=== PATIENT | male | born 1965 | race Caucasian/White ===

== ENCOUNTER → 2016-12-12 | Day surgery (SDC) | payer MEDICARE, OTHER ==
[~2016-12-12] MED LIST: ALBU2.5V13 NEB; ALBU2.5V5 NEB; ASPI-482 PO; ATORVASTATIN CA80 MG PO; CETI10TA30 PO; CHOL100013 PO; DICY10CA3 PO; FLUT12AE2 IH; IV RINGERS,LACTATED 1000ML 1,000 ML IV SCH; LISI1TAB7 PO; MESA1.2T PO; MULT-246 PO; OMEG1CAP30 PO; OMEP40CA5 PO; PROCHLORPERAZINE 10 MG/2 ML VIAL. ONE; PROPOFOL 40 ML IV ONE
[2016-12-12 10:01] VITALS: BP 117/74
--- NOTE | 2016-12-13 13:49 | PATHOLOGY ---
PATHOLOGY REPORT * * * * * * * * FINAL DIAGNOSIS: A. Terminal ileum biopsy: - No significant pathologic abnormalities. B. Cecum biopsy: - Benign colonic mucosa showing no significant pathologic abnormalities-negative for dysplasia. C. Ascending colon biopsy: - Benign colonic mucosa showing no significant pathologic abnormalities-negative for dysplasia. D. Descending colon biopsy: - Benign colonic mucosa showing no significant pathologic abnormalities-negative for dysplasia. E. Sigmoid colon biopsy: - Benign colonic mucosa showing no significant pathologic abnormalities-negative for dysplasia. F. Rectal biopsy: - Benign rectal mucosa showing focal hyperplastic changes consistent with hyperplastic polyp-negative for dysplasia. COMMENT: Sections of the terminal ileum biopsy reveal segments of small intestine mucosa. There are no sprue-like changes or significant inflammatory changes. Sections of the cecal, ascending colon, descending colon, and sigmoid colon biopsies appear similar and reveal segments of benign colonic mucosa showing no significant pathologic abnormalities. There are scattered mucosal-associated lymphoid aggregates. The findings are consistent with ulcerative colitis in remission. There is no evidence of dysplasia or malignancy. Sections of the rectal biopsy reveal a segment of rectal mucosa showing focal hyperplastic changes consistent with hyperplastic polyp. There is no evidence of a chronic destructive colitis. There is no evidence of dysplasia. (JPM:mgelen; d/t: 12/13/16) REPORT ELECTRONICALLY SIGNED BY: Clark Celaya M.D. DATE/TIME: 12/13/2016 13:34 * * * * * * * * GROSS PATHOLOGY: A. Received in formalin labeled "Greg Cardoso, terminal ileum biopsy," are two segments of pedro soft tissue measuring 0.7 x 0.5 x 0.1 cm in aggregate dimensions and ranging from 0.3 to 0.5 cm in maximum dimension. The specimen is submitted entirely in cassette B1. B. Received in formalin labeled "Greg Cardoso, cecum biopsy," are five segments of pedro soft tissue measuring 1.0 x 0.6 x 0.1 cm in aggregate dimensions and ranging from 0.2 to 0.6 cm in maximum dimension. The specimen is submitted entirely in cassette B1. C. Received in formalin labeled "Greg Strakeisha, ascending colon biopsy," are four segments of pedro soft tissue measuring 1.0 x 0.6 x 0.2 cm in aggregate dimensions and ranging from 0.4 to 0.5 cm in maximum dimension. The specimen is submitted entirely in cassette C1. D. Received in formalin labeled "Greg Cardoso, descending colon biopsy," are two segments of pedro soft tissue measuring 0.5 x 0.5 x 0.1 cm in aggregate dimensions and measuring 0.5 cm each cm in maximum dimension. The specimen is submitted entirely in cassette D1. E. Received in formalin labeled "Greg Cardoso, sigmoid colon biopsy," are three segments of pedro soft tissue measuring 0.6 x 0.5 x 0.1 cm in aggregate dimensions and ranging from 0.3 to 0.4 cm in maximum dimension. The specimen is submitted entirely in cassette E1. F. Received in formalin labeled "Greg Cardoso, rectal biopsy," is a segment of pedro soft tissue measuring 0.4 cm in maximum dimension. The specimen is submitted entirely in cassette F1. (CAA; 12/12/2016) INITIAL CPT CODE(S): A; 49958 B; 88346 C; 00136 D; 26842 E; 88613 F; 19751 Professional services [place] [facility] [place] [address] Technical services performed by [facility] at [address] [place] [address]. SPECIMEN(S) RECEIVED: A.Terminal ileum biopsy B.Cecum biopsy C.Ascending colon biopsy D.Descending colon biopsy E.Sigmoid biopsy F.Rectal biopsy CLINICAL HISTORY: Ulcerative colitis PATIENT: GREG CARDOSO /AGE: 5 1965 (Age: 51) PATIENT #: [id number] ALT CASE #: SPECIMEN COLLECTION DATE: 12/12/2016 SPECIMEN RECEIVED DATE: 12/12/2016 [facility] - [address] [place] [address] - PHONE: [phone] * * * END OF REPORT * * *
== END ==
LOC: SURG 07:50
PROVIDERS: ATTEND Internal Medicine Gastroenterology
DX: K51.40 Inflammatory polyps of colon without complications (principal); K64.0 First degree hemorrhoids; K51.00 Ulcerative (chronic) pancolitis without complications; K57.30 Diverticulosis of large intestine without perforation or abscess without bleeding; K29.70 Gastritis, unspecified, without bleeding; I10 Essential (primary) hypertension; K21.9 Gastro-esophageal reflux disease without esophagitis; K76.0 Fatty (change of) liver, not elsewhere classified; J45.909 Unspecified asthma, uncomplicated; E78.00 Pure hypercholesterolemia, unspecified; F41.9 Anxiety disorder, unspecified; M19.90 Unspecified osteoarthritis, unspecified site; I63.9 Cerebral infarction, unspecified; M79.7 Fibromyalgia; M12.9 Arthropathy, unspecified; Z80.3 Family history of malignant neoplasm of breast; Z90.49 Acquired absence of other specified parts of digestive tract; Z72.89 Other problems related to lifestyle; F17.210 Nicotine dependence, cigarettes, uncomplicated; Z79.82 Long term (current) use of aspirin; F15.90 Other stimulant use, unspecified, uncomplicated
CPT/HCPCS: 45380; J0780; J2704; 88305

== ENCOUNTER → 2017-07-29 | Outpatient (CLI) | payer BC ==
[2016-12-12 10:01] VITALS: BP 117/74
[~2017-07-29] MED LIST changes: -ALBU2.5V13 NEB; +ALBU2.5V14 NEB; +IOHEXOL 300 MG/ML 100ML VIAL. IV ONE; -IV RINGERS,LACTATED 1000ML 1,000 ML IV SCH; -PROCHLORPERAZINE 10 MG/2 ML VIAL. ONE; -PROPOFOL 40 ML IV ONE
--- NOTE | 2017-07-29 14:37 | KCIC ---
PQRS Compliance Statement: One or more of the following individualized dose reduction techniques were utilized for this examination: 1. Automated exposure control 2. Adjustment of the mA and/or kV according to patient size 3. Use of iterative reconstruction technique CT CHEST WITH CONTRAST, PULMONARY ANGIOGRAM History: Cough, chest pain. Smoker x20 years, quit 1 year ago. Comparison: None. Technique: Helical CT of the chest was performed after the administration of 95 cc Omnipaque 300 intravenous contrast according to PE protocol. Axial and coronal reconstructions were obtained. 3-D MIP images were constructed to better evaluate the pulmonary arteries. Findings: Pulmonary arteries are adequately opacified. There is no evidence of pulmonary embolism. There is no thoracic aortic dissection. Thyroid is symmetric. Left vertebral artery arises directly from the aortic arch, a normal variant. There are partially calcified mediastinal and bilateral hilar lymph nodes. No adenopathy in the chest. Cardiac size normal, no pericardial effusion. The central airways are patent. There are numerous calcified granulomas in the lungs compatible with prior granulomatous infection. Lungs are otherwise clear. No pleural abnormality. Cholecystectomy. Probable fatty infiltration of the liver. There are a few subcentimeter peripancreatic lymph nodes. No acute bone abnormality. IMPRESSION: 1. There is no CT evidence of pulmonary embolus. 2. Findings of remote granulomatous infection. 3. Fatty infiltration of the liver. Electronically signed by: Johnnie Medrano MD (07/29/2017 2:33 PM) [id number]
== END | disposition home or self-care (01) ==
LOC: KCIC CT 13:10
PROVIDERS: ATTEND Family Medicine
DX: K76.0 Fatty (change of) liver, not elsewhere classified (principal); R07.9 Chest pain, unspecified
CPT/HCPCS: 71275; Q9967

== ENCOUNTER → 2017-11-26 | Outpatient (CLI) | payer BC ==
[2017-11-26] MEDS: OXYMETAZOLINE 0.05% NASAL SPRAY 30ML BOTTLE. NS (22:26)
== END | disposition home or self-care (01) ==
LOC: SLPLAB 18:33
DX: G47.33 Obstructive sleep apnea (adult) (pediatric) (principal)
CPT/HCPCS: 95810

== ENCOUNTER → 2019-01-28 | Day surgery (SDC) | payer BC ==
[~2019-01-28] MED LIST changes: -IOHEXOL 300 MG/ML 100ML VIAL. IV ONE; +IV RINGERS,LACTATED 1000ML 1,000 ML IV SCH; +LIALDA1.2 GM PO; +LIDOCAINE 1% PF 2 ML VIAL. ID PRN; -MESA1.2T PO; +MIDAZOLAM HCL/PF 2 MG/2 ML VIAL. IV PRN; +PROPOFOL 60 ML IV ONE; +SULF500T7 PO; +fentaNYL PF VIAL 100 MCG/2 ML VIAL IV PRN
[2019-01-28 11:13] VITALS: BP 123/67
--- NOTE | 2019-01-29 17:08 | PATHOLOGY ---
[facility] Accession Number: [id number] . 01 Material submitted: . PART A: SMALL BOWEL BIOPSY PART B: GASTRIC ANTRUM BIOPSY PART C: DISTAL ESOPHAGUS BIOPSY PART D: TERMINAL ILEUM BIOPSY PART E: CECUM BIOPSY PART F: ASCENDING COLON POLYP PART G: ASCENDING COLON BIOPSY PART H: TRANSVERSE COLON POLYP PART I: TRANSVERSE COLON BIOPSY PART J: DESCENDING COLON POLYP PART K: DESCENDING COLON BIOPSY PART L: SIGMOID COLON POLYP PART M: SIGMOID COLON BIOPSY PART N: RECTUM BIOPSY . 01 Clinical history: . GERD, colitis . 02 Diagnosis: A. Small bowel biopsy: - No significant pathologic abnormalities. . B. Gastric biopsy, antrum: - Congestion and mild foveolar hyperplasia consistent with reactive gastropathy. . C. Esophageal biopsy, distal esophagus: - Segments of gastric mucosa showing mild chronic inflammation. . D. Terminal ileum biopsy: - No significant pathologic abnormalities. . E. Colon biopsy, cecum: - Consistent with quiescent colitis, negative for dysplasia. . F. Colon biopsy, ascending colon polyp: - Consistent with post inflammatory polyp. . G. Colon biopsy, ascending colon: - Consistent with quiescent colitis, negative for dysplasia. . H. Colon biopsy, transverse colon polyp: - Consistent with post inflammatory polyp with focal mild active colitis. . I. Colon biopsy, transverse colon: - Consistent with quiescent colitis, negative for dysplasia. . J. Colon biopsy, descending colon polyp: - Consistent with post inflammatory polyp. . K. Colon biopsy, descending colon: - Consistent with quiescent colitis, negative for dysplasia. . L. Colon biopsy, sigmoid colon polyp: - Consistent with post inflammatory polyp. . M. Colon biopsy, sigmoid colon: - Consistent with quiescent colitis, negative for dysplasia. . N. Colorectal biopsy, rectum: - Consistent with quiescent colitis, negative for dysplasia, with small incidental hyperplastic polyp. LB/01/29/2019 . 02 Comment: Sections of the small bowel biopsy reveal segments of duodenal and small intestine mucosa. Where best oriented, the mucosal villi show no sprue-like changes or significant inflammatory changes. Sections of the gastric antral biopsy show congestion, mild foveolar hyperplasia, and no significant inflammation. A properly controlled immunoperoxidase stain for Helicobacter is negative for Helicobacter organisms. The findings are consistent with a mild reactive gastropathy. Sections of the distal esophageal biopsy reveal segments of gastric mucosa showing mild chronic inflammation. There is no squamous esophageal mucosa. There is no evidence of Phelan's change, dysplasia, or malignancy. Sections of the terminal ileum biopsy reveal segments of small intestine mucosa containing focal mucosal associated lymphoid tissue. There is no significant inflammation. Sections of the cecal, ascending colon, transverse colon, descending colon, sigmoid colon, and rectal biopsies reveal segments of colonic mucosa consistent with quiescent colitis and showing no evidence of active chronic inflammation or dysplasia. Sections of the ascending colon polyp, transverse colon polyp, descending colon polyp, and sigmoid colon polyp biopsies appear similar and reveal segments of colonic mucosa consistent with post inflammatory polyps. The ascending colon polyp biopsy does show a small focus of mild active inflammation without crypt architectural distortion or crypt abscesses. There is no dysplasia or evidence of malignancy. (JPM/db; 01/29/2019) . Speical stain performed: Immumnoperoxidase stain for Helicobacter on Electronically signed: . Clark Celaya MD, Pathologist NPI- [id number] . 01 Gross description: . A. Received in formalin labeled "Greg Marcus, small bowel BX," are 3 segments of pedro soft tissue measuring 0.9 x 0.7 x 0.2 cm in aggregate dimensions and ranging from 0.4 to 0.5 cm in maximum dimension. The specimen is submitted entirely in cassette A1. . B. Received in formalin labeled "Greg Marcus, gastric antrum BX," is a single segment of pedro soft tissue measuring 0.6 cm in maximum dimension. The specimen is entirely submitted in cassette B1. . C. Received in formalin labeled "Angeline, Greg, distal esophagus BX," are 2 segments of pedro soft tissue measuring 0.7 x 0.2 x 0.2 cm in aggregate dimensions and ranging from 0.3 to 0.4 cm in maximum dimension. The specimen is submitted entirely in cassette C1. . D. Received in formalin labeled "Angeline, Greg, terminal ileum BX," are 2 segments of pedro soft tissue measuring 0.9 x 0.2 x 0.2 cm in aggregate dimensions and ranging from 0.4 to 0.5 cm in maximum dimension. The specimen is submitted entirely in cassette D1. . E. Received in formalin labeled "Angeline, Greg, cecum BX," are 2 segments of pedro soft tissue measuring 1.0 x 0.2 x 0.2 cm in aggregate dimensions and ranging from 0.4 to 0.6 cm in maximum dimension. The specimen is submitted entirely in cassette E1. . F. Received in formalin labeled "Angeline, Greg, ascending colon polyp," are 3 segments of pedro soft tissue measuring 0.9 x 0.6 x 0.1 cm in aggregate dimensions and ranging from 0.3 to 0.5 cm in maximum dimension. The specimen is submitted entirely in cassette F1. . G. Received in formalin labeled "Angeline, Greg, ascending colon BX," are 2 segments of pedro soft tissue measuring 0.7 x 0.2 x 0.2 cm in aggregate dimensions and ranging from 0.3 to 0.5 cm in maximum dimension. The specimen is submitted entirely in cassette G1. . H. Received in formalin labeled "Angeline, Greg, transverse colon polyp," are 3 segments of pedro soft tissue measuring 0.9 x 0.6 x 0.2 cm in aggregate dimensions and ranging from 0.3 to 0.4 cm in maximum dimension. The specimen is submitted entirely in cassette H1. . I. Received in formalin labeled "Angeline, Greg, transverse colon BX," are 2 segments of pedro soft tissue measuring 0.7 x 0.3 x 0.2 cm in aggregate dimensions and ranging from 0.3 to 0.4 cm in maximum dimension. The specimen is submitted entirely in cassette I1. . J. Received in formalin labeled "Angeline, Greg, descending colon polyp," is a single segment of pedro soft tissue measuring 0.6 cm in maximum dimension. The specimen is entirely submitted in cassette J1. . K. Received in formalin labeled "Stramel, Greg, descending colon BX," are 3 segments of pedro soft tissue measuring 1.4 x 0.5 x 0.1 cm in aggregate dimensions and ranging from 0.1 to 0.7 cm in maximum dimension. The specimen is submitted entirely in cassette K1. . L. Received in formalin labeled "Greg Marcus, sigmoid colon polyp," are 2 segments of pedro soft tissue measuring 0.8 x 0.2 x 0.2 cm in aggregate dimensions and ranging from 0.3 to 0.5 cm in maximum dimension. The specimen is submitted entirely in cassette L1. . M. Received in formalin labeled "Greg Marcus, sigmoid colon BX," are 2 segments of pedro soft tissue measuring 0.7 x 0.3 x 0.2 cm in aggregate dimensions and ranging from 0.3 to 0.4 cm in maximum dimension. The specimen is submitted entirely in cassette M1. . N. Received in formalin labeled "Greg Marcus, rectum BX," are 2 segments of pedro soft tissue measuring 1.0 x 0.2 x 0.2 cm in aggregate dimensions and ranging from 0.3 to 0.7 cm in maximum dimension. The specimen is submitted entirely in cassette N1. (TSD; 01/28/2019) TOB/TOB . 02 Pathologist provided ICD-10: K31.9, K20.9, K52.9, K51.40, K62.1 . 02 CPT . 947690, 159284, 919079, 752364, 954448, 942463, 346804, 567722, 334539, 464563, 356653, 726101, 461436, 478403, [id number] Specimen Comment: A courtesy copy of this report has been sent to Specimen Comment: [phone], . Specimen Comment: Report sent to and Performed at: 01 [facility] [address] [facility] [address], [place] [id number] MD Piyush Liu MD Phone: [phone] Performed at: 02 [facility] [address] [place], [place] [id number] MD Clark Celaya MD Phone: [phone]
== END | disposition home or self-care (01) ==
LOC: ENDOS 09:01
PROVIDERS: ATTEND Internal Medicine Gastroenterology
DX: K57.30 Diverticulosis of large intestine without perforation or abscess without bleeding (principal); K64.0 First degree hemorrhoids; K51.00 Ulcerative (chronic) pancolitis without complications; K21.0 Gastro-esophageal reflux disease with esophagitis; K31.89 Other diseases of stomach and duodenum; K62.1 Rectal polyp; K51.40 Inflammatory polyps of colon without complications; Z88.6 Allergy status to analgesic agent; F41.9 Anxiety disorder, unspecified; M19.90 Unspecified osteoarthritis, unspecified site; J45.909 Unspecified asthma, uncomplicated; F32.9 Major depressive disorder, single episode, unspecified; Z86.73 Personal history of transient ischemic attack (TIA), and cerebral infarction without residual deficits; Z86.010 Personal history of colon polyps; M79.7 Fibromyalgia; I10 Essential (primary) hypertension; G47.30 Sleep apnea, unspecified; Z72.89 Other problems related to lifestyle; F17.210 Nicotine dependence, cigarettes, uncomplicated; Z79.82 Long term (current) use of aspirin; Z79.899 Other long term (current) drug therapy; Z90.49 Acquired absence of other specified parts of digestive tract; Z98.52 Vasectomy status
CPT/HCPCS: 43239; 45380; 88305; 88342; J2704

== ENCOUNTER 2021-07-03 08:33 | Inpatient (IN) | payer BC ==
[~2021-07-03] VITALS: Ht 165.1 cm; Wt 113.6 kg
[~2021-07-03 08:33] MED LIST changes: -IV RINGERS,LACTATED 1000ML 1,000 ML IV SCH; -LIDOCAINE 1% PF 2 ML VIAL. ID PRN; +LISI1TAB20 PO; -LISI1TAB7 PO; -MIDAZOLAM HCL/PF 2 MG/2 ML VIAL. IV PRN; -OMEP40CA5 PO; +OMEP40CA7 PO; -PROPOFOL 60 ML IV ONE; -fentaNYL PF VIAL 100 MCG/2 ML VIAL IV PRN
--- NOTE | 2021-07-03 08:56 | PHYS DOC ---
Past Medical History Past Medical History: High Cholesterol, Hypertension Additional Past Medical Histor: Ulcerative colitis General Adult HPI: HPI: Patient is a 56 year old female with PMH of HTN, HLD, ulcerative colitis on sulfasalazine who presents with hypoxia in the setting of Covid. Was diagnosed on 06/26. He is unvaccinated. Over the past 4 days has had increasing shortness of breath. Does describe some burning chest pain. Has been constant for days. Not sharp or pleuritic. He has had fever/chills, cough, nausea, and diarrhea. Went to his PCP this morning was found to be hypoxic to 86-87% on room air. Improving with 2-4 L/min nasal cannula. Review of Systems: Review of Systems: Constitutional: + Fever/chills. [] Eyes: Denies change in visual acuity. [] HENT: Denies nasal congestion or sore throat. [] Respiratory: + Cough and shortness of breath [] Cardiovascular: Denies chest pain or edema. [] GI: + Nausea and diarrhea. Denies abdominal pain, vomiting, or bloody stools. [] : Denies dysuria. [] Musculoskeletal: Denies back pain or joint pain. [] Integument: Denies rash. [] Neurologic: Denies headache, focal weakness or sensory changes. [] Endocrine: Denies polyuria or polydipsia. [] Lymphatic: Denies swollen glands. [] Psychiatric: Denies depression or anxiety. [] Heart Score: C/O Chest Pain: Yes HEART Score for Chest Pain: HEART Score for Chest Pain Response (Comments) Value History Slighlty/Non-Suspicious 0 Age >45 - < 65 1 Risk Factors 1 or 2 Risk Factors 1 Total 2 Risk Factors: Risk Factors: DM, Current or recent (<one month) smoker, HTN, HLP, family history of CAD, obesity. Risk Scores: Score 0 - 3: 2.5% MACE over next 6 weeks - Discharge Home Score 4 - 6: 20.3% MACE over next 6 weeks - Admit for Clinical Observation Score 7 - 10: 72.7% MACE over next 6 weeks - Early Invasive Strategies Allergies: Allergies: Allergies Coded Allergies Type Severity Reaction Last Updated Verified acetaminophen Allergy Intermediate 01/28/19 Yes oxycodone Allergy Intermediate Itching 01/28/19 Yes Physical Exam: PE: Constitutional: Diaphoretic. Ill-appearing. [] HENT: Normocephalic, atraumatic, bilateral external ears normal, oropharynx moist, no oral exudates, nose normal. [] Eyes: conjunctiva normal, no discharge. [] Neck: Normal range of motion, no tenderness, supple, no stridor. [] Cardiovascular: Mild tachycardia. Regular rhythm, no murmur [] Lungs & Thorax: Speaking a few words at a time. Appears slightly dyspneic. Crackles in bilateral lung johnson. [] Abdomen: Bowel sounds normal, soft, no tenderness, no masses, no pulsatile masses. [] Skin: Warm, dry, no erythema, no rash. [] Back: No tenderness, no CVA tenderness. [] Extremities: No tenderness, no cyanosis, no clubbing, ROM intact, no edema. [] Neurologic: Alert and oriented X 3, normal motor function, normal sensory function, no focal deficits noted. [] Psychologic: Affect normal, judgement normal, mood normal. [] EKG: EKG: Sinus rhythm. Rate 86. Left axis deviation. Normal intervals. QTc 422. T wave inversions in lead III. Flat ST segments laterally. No ST elevation or depression. No STEMI [] Radiology/Procedures: Radiology/Procedures: CXR[] Impression: [facility] [address] [place], [place] [id number] IMAGING REPORT Signed PATIENT: ANDI CARDOSO ACCOUNT: [id number] : 1965 LOCATION: ER AGE: 56 SEX: M EXAM STATUS: REG ER ORD. PHYSICIAN: SUMMER JESUS MD REASON: covid +, SOB PROCEDURE: CHEST AP ONLY EXAM: CHEST ONE VIEW. HISTORY: COVID-19, shortness of breath. COMPARISON: None. FINDINGS: A frontal view of the chest is obtained. Patchy bilateral airspace infiltrates are consistent with multifocal pneumonia. There are calcified granulomas on the right. There is no pneumothorax or pleural effusion. The heart is not enlarged. IMPRESSION: 1. Multifocal pneumonia. Electronically signed by: Raissa Mixon MD (07/03/2021 9:02 AM) [id number] DICTATED and SIGNED BY: SUMMER MIXON MD DATE: 07/03/21 [id number] 0 Course & Med Decision Making: Course & Med Decision Making Pertinent Labs and Imaging studies reviewed. (See chart for details) Patient 56-year-old male with history of HTN, HLD, ulcerative colitis on i mmunosuppressive medications who presents with hypoxia in the setting of Covid. Tested positive on 06/26. Was hypoxic to 86-87% on room air. Now stabilized on 2-4 L/min nasal cannula. He does complain of some burning chest discomfort. Will check EKG and troponin. CXR and basic labs pending. Given Covid and hypoxia was given dexamethasone IV. Will clearly require admission. 0856 CXR shows expected multifocal pneumonia c/w COVID. No leukocytosis to suggest bacterial superinfection. will hold on abx. 1017 Dragon Disclaimer: Dragon Disclaimer: This electronic medical record was generated, in whole or in part, using a voice recognition dictation system. Departure Departure Impression: Primary Impression: Respiratory failure with hypoxia Additional Impressions: Pneumonia due to COVID-19 virus Hyponatremia Disposition: ADMITTED INPATIENT Admitting Physician: DENYS (Deep) Condition: STABLE Referrals: CAMRON BELL MD (PCP) SUMMER JESUS MD Jul 03, 2021 08:56
[2021-07-03] MEDS ORDERED: DEXAMETHASONE SOD PHOS 4 MG/ML VIAL IVP ONE (09:00)
--- NOTE | 2021-07-03 09:05 | RAD ---
EXAM: CHEST ONE VIEW. HISTORY: COVID-19, shortness of breath. COMPARISON: None. FINDINGS: A frontal view of the chest is obtained. Patchy bilateral airspace infiltrates are consistent with multifocal pneumonia. There are calcified g ranulomas on the right. There is no pneumothorax or pleural effusion. The heart is not enlarged. IMPRESSION: 1. Multifocal pneumonia. Electronically signed by: Raissa Mixon MD (07/03/2021 9:02 AM) [id number]
[2021-07-03 09:54] LABS: BASO % 1 % (0-3); EOS % 0 % (0-3); HEMATOCRIT 40.1 % (39.0-53.0); LYMPH # 0.7 x10^3/uL (1.0-4.8); LYMPH % 13 % (24-48); MEAN CORPUSCULAR HEMOGLOBIN 33 pg (25-35); MEAN CORPUSCULAR HGB CONC 35 g/dL (31-37); MEAN CORPUSCULAR VOLUME 94 fL (79-100); MONO # 0.3 x10^3/uL (0.0-1.1); MONO % 6 % (0-9); NEUT # 4.6 x10^3/uL (1.8-7.7); NEUT % 81 % (31-73); PLATELET COUNT 100 x10^3/uL (140-400); RED BLOOD COUNT 4.29 x10^6/uL (4.30-5.70); RED CELL DISTRIBUTION WIDTH 13.3 % (11.5-14.5); WHITE BLOOD COUNT 5.7 x10^3/uL (4.0-11.0)
--- NOTE | 2021-07-03 10:01 | EKG ---
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
[2021-07-03 10:05] LABS: CALCIUM 7.9 mg/dL (8.5-10.1); CREATININE 1.6 mg/dL (0.7-1.3); GFR 45.3; POTASSIUM 3.7 mmol/L (3.5-5.1)
[2021-07-03 10:11] LABS: ALBUMIN 3.2 g/dL (3.4-5.0); TOTAL BILIRUBIN 0.7 mg/dL (0.2-1.0); TOTAL PROTEIN 6.3 g/dL (6.4-8.2)
[2021-07-03] MEDS ORDERED: ONDANSETRON PF 4 MG/2 ML VIAL. IVP PRN (13:45)
[2021-07-03] MEDS ORDERED: DEXTROSE 50% 25 GM / 50ML DISP.SYRIN. IV PRN (13:45)
[2021-07-03] MEDS ORDERED: PROCHLORPERAZINE 10 MG/2 ML VIAL. IV PRN (13:45)
[2021-07-03] MEDS ORDERED: SENNOSIDES 8.6 MG TABLET PO PRN (13:45)
[2021-07-03] MEDS ORDERED: DOCUSATE SODIUM 100 MG CAPSULE. PO PRN (13:45)
[2021-07-03] MEDS ORDERED: ACETAMINOPHEN 325 MG TABLET. PO PRN (13:45)
[2021-07-03] MEDS ORDERED: ASCORBIC ACID 1,000 MG TABLET PO SCH (14:00)
[2021-07-03] MEDS: IV NORMAL SALINE 1000ML BAG 1,000 ML IV SCH (14:13)
[2021-07-03] MEDS: ASCORBIC ACID 1,000 MG TABLET PO SCH ×2 (14:14→20:13)
[2021-07-03] MEDS: methylPREDNISolone SOD SUCC PF 40 MG/ML VIAL. IV SCH ×2 (14:17→20:13)
[2021-07-03] MEDS: THIAMINE 100 MG TABLET. PO SCH (14:17)
[2021-07-03] MEDS: ZINC SULFATE 220 MG CAPSULE. PO SCH (14:18)
[2021-07-03 14:20] VITALS: BP 99/55
[2021-07-03] MEDS ORDERED: ZINC SULFATE 220 MG CAPSULE. PO SCH (15:00)
[2021-07-03] MEDS ORDERED: THIAMINE 100 MG TABLET. PO SCH (15:00)
[2021-07-03] MEDS ORDERED: REMDESIVIR LOAD in IV NORMAL SALINE 250ML TV IV ONE (16:00)
--- NOTE | 2021-07-03 16:17 | PDOC1 ---
History and Physical Date of Service: DOS: DATE: 07/03/21 TIME: 16:14 Chief Complaint: Chief Complain: Shortness of breath History of Present Illness: HPI: 56 year old female with PMH of HTN, HLD, ulcerative colitis on sulfasalazine who presents with hypoxia in the setting of Covid. Was diagnosed on 06/26. He is unvaccinated. Over the past 4 days has had increasing shortness of breath. Does describe some burning chest pain. Has been constant for days. Not sharp or pleuritic. He has had fever/chills, cough, nausea, and diarrhea. Went to his PCP this morning was found to be hypoxic to 86-87% on room air. Improving with 2-4 L/min nasal cannula. Past Medical/Surgical History: PMH/PSH: Past Medical History: High Cholesterol, Hypertension, Ulcerative colitis Allergies: Allergies: Coded Allergies: acetaminophen (Verified Allergy, Intermediate, 01/28/19) oxycodone (Verified Allergy, Intermediate, Itching, 01/28/19) Family History: Family History: Reviewed with no relevant findings Social History: Social History: Denies any alcohol, drug or tobacco abuse Current Medications: Current Medications Current Medications Dexamethasone Sodium Phosphate (Decadron) 6 mg 1X ONCE IVP Last administered on 07/03/21at 10:19; Start 07/03/21 at 09:00; Stop 07/03/21 at 09:01; Status DC Ascorbic Acid (Vitamin C) 3,000 mg TID PO Last administered on 07/03/21at 14:14; Start 07/03/21 at 14:00 Methylprednisolone Sodium Succinate (SOLU-Medrol 40MG VIAL) 125 mg Q8HRS IV Last administered on 07/03/21at 14:17; Start 07/03/21 at 14:00 Thiamine Mononitrate (Vitamin B-1) 300 mg DAILY PO ; Start 07/03/21 at 15:00; Stop 07/03/21 at 13:50; Status DC Zinc Sulfate (Orazinc) 220 mg DAILY PO ; Start 07/03/21 at 15:00; Stop 07/03/21 at 13:49; Status DC Sennosides (Senna) 17.2 mg PRN BID PRN PO CONSTIPATION; Start 07/03/21 at 13:45 Docusate Sodium (Colace) 100 mg PRN DAILY PRN PO HARD STOOLS; Start 07/03/21 at 13:45 Ondansetron HCl (Zofran) 4 mg PRN Q6HRS PRN IVP NAUSEA/VOMITING; Start 07/03/21 at 13:45 Dextrose (Dextrose 50%-Water Syringe) 12.5 gm PRN Q15MIN PRN IV SEE COMMENTS; Start 07/03/21 at 13:45 Sodium Chloride 1,000 ml @ 75 mls/hr [id number] IV Last administered on 07/03/21at 14:13; Start 07/03/21 at 13:45 Acetaminophen (Tylenol) 650 mg PRN Q4HRS PRN PO TEMP OVER 100.4F OR MILD PAIN Last administered on 07/03/21at 14:18; Start 07/03/21 at 13:45 Prochlorperazine Edisylate (Compazine) 10 mg PRN Q6HRS PRN IV NAUSEA/VOMITING; Start 07/03/21 at 13:45 Ascorbic Acid (Vitamin C) 3,000 mg TID PO ; Start 07/03/21 at 14:00; Stop 07/03/21 at 13:49; Status DC Thiamine Mononitrate (Vitamin B-1) 300 mg DAILY PO Last administered on 07/03/21at 14:17; Start 07/03/21 at 15:00 Zinc Sulfate (Orazinc) 220 mg DAILY PO Last administered on 07/03/21at 14:18; Start 07/03/21 at 15:00 Remdesivir 200 mg/ Sodium Chloride 210 ml @ 210 mls/hr 1X ONCE IV ; Start 06/24 at 16:00; Stop 07/03/21 at 16:59 Remdesivir 100 mg/ Sodium Chloride 230 ml @ 460 mls/hr Q24H IV ; Start 07/04/21 at 16:00; Stop 07/07/21 at 16:29 Active Scripts Active Reported Sulfasalazine 500 Mg Tablet 500 Mg PO EVERY 6 HRS Lisinopril-Hctz 20-25 Mg Tab (Lisinopril/Hydrochlorothiazide) 1 Each Tablet 1 Tab PO DAILY Flovent 220MCG Hfa (Fluticasone Propionate) 12 Gm Aer.w.adap 12 Gm IH BID Albuterol Sulfate Neb Soln (Albuterol Sulfate) 2.5 Mg/3 Ml Vial.neb 1 Vial NEB P RN Q4HRS Albuterol Sulfate Conc Neb Soln (Albuterol Sulfate) 2.5 Mg/0.5 Ml Vial.neb 1 Vial NEB Q6HRS Multi-Vitamin Daily (Multivitamin) 1 Each Tablet 1 Each PO DAILY Fish Oil 1,000 Mg Softgel ([place]-3/Dha/Epa/Fish Oil) 1 Each Capsule 1 Each PO DAILY Cetirizine Hcl 10 Mg Tab.chew 10 Mg PO DAILY Atorvastatin Calcium 80 Mg Tablet 80 Mg PO HS Omeprazole 40 Mg Capsule.dr 40 Mg PO DAILY Dicyclomine Hcl 10 Mg Capsule 10 Mg PO TID Aspir 81 (Aspirin) 81 Mg Tablet.dr 81 Mg PO DAILY Vitamin D (Cholecalciferol (Vitamin D3)) 1,000 Unit Capsule 1,000 Unit PO DAILY ROS: Review of Systems Review of System REVIEW OF SYSTEMS: GENERAL: Denies weakness SKIN: No bruising, hair changes or rashes. EYES: No blurred, double or loss of vision. NOSE AND THROAT: No history of nosebleeds, hoarseness or sore throat. HEART: No history of palpitations, chest pain or shortness of breath on exertion. LUNGS: Denies cough, hemoptysis, wheezing or shortness of breath. Positive for dyspnea GASTROINTESTINAL: Denies changes in appetite, nausea, vomiting, diarrhea or constipation. GENITOURINARY: No history of frequency, urgency, hesitancy or nocturia. NEUROLOGIC: Denies history of numbness, tingling, or tremor. PSYCHIATRIC: No history of panic, anxiety or depression. ENDOCRINE: No history of heat or cold intolerance, polyuria or polydipsia. EXTREMITIES: Denies joint pain, pain on walking or stiffness. Physical Exam: Vital Signs: Vital Signs Date Time Temp Pulse Resp B/P (MAP) Pulse Ox O2 Delivery O2 Flow Rate FiO2 07/03/21 14:20 101.1 82 18 99/55 (70) 91 Nasal Cannula 2.0 101.1 Physcial Exam: General: Well developed, well nourished, no acute distress, well appearing HEENT: Pupils equally round and reactive to light, EOMI, no discharge, normal conjunctiva Neck: Supple, no nuchal rigidity, no JVD, trachea midline, no tenderness Cardiac: RRR, no murmurs, no gallops, no rubs Chest/Lungs: Diminished to auscultation bilaterally, no wheeze, no rhonchi, no crackles Abdomen: Obese, soft, non-distended, no guarding, no peritoneal signs, non- tender Back: No tenderness Extremities: no edema, pulses intact, non-tender,capillary refill <3 sec bilateral upper and lower extremities, Neuro: Alert and oriented x 4, no focal deficits, normal speech Labs: Labs: Laboratory Tests Test 07/03/21 09:47 07/03/21 14:45 White Blood Count 5.7 x10^3/uL (4.0-11.0) Red Blood Count 4.29 x10^6/uL (4.30-5.70) Hemoglobin 14.0 g/dL (13.0-17.5) Hematocrit 40.1 % (39.0-53.0) Mean Corpuscular Volume 94 fL (79-100) Mean Corpuscular Hemoglobin 33 pg (25-35) Mean Corpuscular Hemoglobin Concent 35 g/dL (31-37) Red Cell Distribution Width 13.3 % (11.5-14.5) Platelet Count 100 x10^3/uL (140-400) Neutrophils (%) (Auto) 81 % (31-73) Lymphocytes (%) (Auto) 13 % (24-48) Monocytes (%) (Auto) 6 % (0-9) Eosinophils (%) (Auto) 0 % (0-3) Basophils (%) (Auto) 1 % (0-3) Neutrophils # (Auto) 4.6 x10^3/uL (1.8-7.7) Lymphocytes # (Auto) 0.7 x10^3/uL (1.0-4.8) Monocytes # (Auto) 0.3 x10^3/uL (0.0-1.1) Eosinophils # (Auto) 0.0 x10^3/uL (0.0-0.7) Basophils # (Auto) 0.0 x10^3/uL (0.0-0.2) Sodium Level 127 mmol/L (136-145) Potassium Level 3.7 mmol/L (3.5-5.1) Chloride Level 90 mmol/L (98-107) Carbon Dioxide Level 33 mmol/L (21-32) Anion Gap 4 (6-14) Blood Urea Nitrogen 26 mg/dL (8-26) Creatinine 1.6 mg/dL (0.7-1.3) Estimated GFR (Cockcroft-Gault) 45.3 BUN/Creatinine Ratio 16 (6-20) Glucose Level 124 mg/dL (70-99) Calcium Level 7.9 mg/dL (8.5-10.1) Total Bilirubin 0.7 mg/dL (0.2-1.0) Aspartate Amino Transf (AST/SGOT) 76 U/L (15-37) Alanine Aminotransferase (ALT/SGPT) 44 U/L (16-63) Alkaline Phosphatase 48 U/L (46-116) Troponin I Quantitative < 0.017 ng/mL (0.000-0.055) C-Reactive Protein, Quantitative 146.2 mg/L (0-3.3) Total Protein 6.3 g/dL (6.4-8.2) Albumin 3.2 g/dL (3.4-5.0) Albumin/Globulin Ratio 1.0 (1.0-1.7) D-Dimer (Tisha) 1.43 ug/mlFEU (0.00-0.50) Laboratory Tests Test 07/03/21 09:47 07/03/21 14:45 White Blood Count 5.7 x10^3/uL (4.0-11.0) Red Blood Count 4.29 x10^6/uL (4.30-5.70) Hemoglobin 14.0 g/dL (13.0-17.5) Hematocrit 40.1 % (39.0-53.0) Mean Corpuscular Volume 94 fL (79-100) Mean Corpuscular Hemoglobin 33 pg (25-35) Mean Corpuscular Hemoglobin Concent 35 g/dL (31-37) Red Cell Distribution Width 13.3 % (11.5-14.5) Platelet Count 100 x10^3/uL (140-400) Neutrophils (%) (Auto) 81 % (31-73) Lymphocytes (%) (Auto) 13 % (24-48) Monocytes (%) (Auto) 6 % (0-9) Eosinophils (%) (Auto) 0 % (0-3) Basophils (%) (Auto) 1 % (0-3) Neutrophils # (Auto) 4.6 x10^3/uL (1.8-7.7) Lymphocytes # (Auto) 0.7 x10^3/uL (1.0-4.8) Monocytes # (Auto) 0.3 x10^3/uL (0.0-1.1) Eosinophils # (Auto) 0.0 x10^3/uL (0.0-0.7) Basophils # (Auto) 0.0 x10^3/uL (0.0-0.2) Sodium Level 127 mmol/L (136-145) Potassium Level 3.7 mmol/L (3.5-5.1) Chloride Level 90 mmol/L (98-107) Carbon Dioxide Level 33 mmol/L (21-32) Anion Gap 4 (6-14) Blood Urea Nitrogen 26 mg/dL (8-26) Creatinine 1.6 mg/dL (0.7-1.3) Estimated GFR (Cockcroft-Gault) 45.3 BUN/Creatinine Ratio 16 (6-20) Glucose Level 124 mg/dL (70-99) Calcium Level 7.9 mg/dL (8.5-10.1) Total Bilirubin 0.7 mg/dL (0.2-1.0) Aspartate Amino Transf (AST/SGOT) 76 U/L (15-37) Alanine Aminotransferase (ALT/SGPT) 44 U/L (16-63) Alkaline Phosphatase 48 U/L (46-116) Troponin I Quantitative < 0.017 ng/mL (0.000-0.055) C-Reactive Protein, Quantitative 146.2 mg/L (0-3.3) Total Protein 6.3 g/dL (6.4-8.2) Albumin 3.2 g/dL (3.4-5.0) Albumin/Globulin Ratio 1.0 (1.0-1.7) D-Dimer (Tisha) 1.43 ug/mlFEU (0.00-0.50) Images: Images PROCEDURE: CHEST AP ONLY EXAM: CHEST ONE VIEW. HISTORY: COVID-19, shortness of breath. COMPARISON: None. FINDINGS: A frontal view of the chest is obtained. Patchy bilateral airspace infiltrates are consistent with multifocal pneumonia. There are calcified granulomas on the right. There is no pneumothorax or pleural effusion. The heart is not enlarged. IMPRESSION: 1. Multifocal pneumonia. Assessment/Plan Assessment/Plan Acute hypoxic respiratory failure COVID-19 pneumonia Elevated D-dimer Acute electrolyte derangement with hyponatremia, hypochloremia suggestive of acute volume depletion PRASANNA due to vasomotor nephropathy Moderate protein malnutrition History of ulcerative colitis Morbid obesity Admit to medicine for further management Pulmonology consult Continue IV thiamine and vitamin C IV 4 mg dexamethasone Daily Pending ferritin, LDH, CRP, D-dimer labs Titrate O2 supplementation to maintain O2 saturation greater than 92% Resume home ulcerative colitis medications Lovenox, consult pharmacy for dosing for DVT prophylaxis Protonix GI prophylaxis ADA diet Full code Discussed with RN and SW Disposition patient management as above Surrogate decision maker is the Justifications for Admission Other Justification COVID-19 positive test (U07.1, COVID-19) with Acute Pneumonia (J12.89, Other viral pneumonia) (If respiratory failure or sepsis present, add as separate assessment) JOHN TREJO MD Jul 03, 2021 16:17
[2021-07-03] MEDS ORDERED: IV NORMAL SALINE 1000ML BAG 1,000 ML IV ONE (16:30)
[2021-07-03] MEDS: ENOXAPARIN 40 MG/0.4 ML SYRINGE. SQ SCH (17:44)
[2021-07-03 19:00] VITALS: BP 133/65
[2021-07-03] MEDS ORDERED: FOLI0.8C PO (19:16)
[2021-07-03] MEDS ORDERED: OMEP40CA7 PO (19:16)
--- NOTE | 2021-07-03 19:50 | CONS ---
DATE OF CONSULTATION: 07/03/2021 PULMONARY CONSULTATION ATTENDING PHYSICIAN: Dr. Adame. REASON FOR CONSULTATION: Respiratory failure, COVID-19 viral pneumonia. HISTORY OF PRESENT ILLNESS: The patient is a 56-year-old male with 25 years of tobacco use and obesity with a BMI of 41. The patient also has a history of ulcerative colitis, on sulfasalazine. He presented to the hospital after he was diagnosed with COVID-19 on 06/26. He is unvaccinated. He is noticed to have increased shortness of breath and there was noted to be hypoxic with saturation of 86% on room air at his primary care's office. He was sent to Urgent Care and transferred here. He has some subjective fever, chills, cough. Denies any leg edema. The patient has been a smoker for 25 years, less than 1 pack per day. He is currently requiring oxygen at 2 liters. His chest x-ray revealed bilateral interstitial infiltrates. I have done this consultation via telemedicine. PAST MEDICAL HISTORY: Significant for tobaccoism, likely COPD, history of dyslipidemia, hypertension, ulcerative colitis and obesity. PAST SURGICAL HISTORY: No recent surgeries. ALLERGIES: ACETAMINOPHEN, OXYCODONE. REVIEW OF SYSTEMS: A 10-point system obtained. Pertinent positives discussed in my present illness, otherwise noncontributory. All systems that were negative were reviewed as well. FAMILY HISTORY: Noncontributory to lungs. MEDICATIONS: All reviewed including remdesivir, Lovenox for DVT prophylaxis and IV Solu-Medrol. SOCIAL HISTORY: Smoker for 25 years, less than 1 pack per day. PHYSICAL EXAMINATION: VITAL SIGNS: Reviewed. T-max of 101. Pulse ox 91% on 2 liters. Blood pressure 99 systolic. GENERAL: Visual exam done due to COVID-19. No paradoxical breathing. He is obese. EXTREMITIES: No leg edema or rash. LABORATORY DATA: Reviewed. White cell count 5.7, hemoglobin 14.0, platelets of 100. BUN 26, creatinine 1.6. Albumin 3.2. IMPRESSION: 1. Acute hypoxic respiratory failure in a patient who is morbidly obese, has COVID-19 viral pneumonia and has underlying tobaccoism. He is at high risk for worsening hypoxia and clinical deterioration. He also has been on sulfasalazine for ulcerative colitis. Currently, oxygen requirement is stable at 2 liters. 2. Abnormal chest x-ray with bilateral patchy interstitial infiltrates, consistent with COVID-19 viral pneumonia. 3. Underlying tobaccoism with suspected chronic obstructive pulmonary disease. 4. Underlying morbid obesity. RECOMMENDATIONS: 1. At present clinical status is stable at 2 liters. 2. The patient was initiated on remdesivir and IV Solu-Medrol. We will continue to monitor respiratory status. 3. DVT prophylaxis with Lovenox. 4. No clinical suspicion for bacterial pneumonia. 5. Discussed with RN, discussed with the patient. We will follow his clinical course. We will be available for any further recommendations. Please call us if his oxygen requirement changes. We will be seeing him otherwise, on a p.r.n. basis. VU DR: Vel TID: [id number]
[2021-07-03 23:33] VITALS: BP 114/72
[2021-07-04] MEDS: IV NORMAL SALINE 1000ML BAG 1,000 ML IV SCH ×2 (00:50→17:49)
[2021-07-04 03:00] VITALS: BP 104/71
[2021-07-04] MEDS: methylPREDNISolone SOD SUCC PF 40 MG/ML VIAL. IV SCH (06:02)
[2021-07-04 07:00] VITALS: BP 129/79
[2021-07-04 07:13] LABS: BASO % 0 % (0-3); EOS % 0 % (0-3); HEMATOCRIT 40.6 % (39.0-53.0); LYMPH # 0.7 x10^3/uL (1.0-4.8); LYMPH % 15 % (24-48); MEAN CORPUSCULAR HEMOGLOBIN 33 pg (25-35); MEAN CORPUSCULAR HGB CONC 34 g/dL (31-37); MEAN CORPUSCULAR VOLUME 95 fL (79-100); MONO # 0.3 x10^3/uL (0.0-1.1); MONO % 6 % (0-9); NEUT # 3.6 x10^3/uL (1.8-7.7); NEUT % 79 % (31-73); PLATELET COUNT 111 x10^3/uL (140-400); RED BLOOD COUNT 4.28 x10^6/uL (4.30-5.70); RED CELL DISTRIBUTION WIDTH 13.4 % (11.5-14.5); WHITE BLOOD COUNT 4.6 x10^3/uL (4.0-11.0)
[2021-07-04 07:26] LABS: CALCIUM 8.6 mg/dL (8.5-10.1); CREATININE 1.2 mg/dL (0.7-1.3); GFR 63.1; MAGNESIUM 2.5 mg/dL (1.8-2.4); POTASSIUM 4.2 mmol/L (3.5-5.1)
[2021-07-04] MEDS: THIAMINE 100 MG TABLET. PO SCH (10:08)
[2021-07-04] MEDS: ZINC SULFATE 220 MG CAPSULE. PO SCH (10:08)
[2021-07-04] MEDS: ASPIRIN ENTERIC COATED 81 MG TABLET.DR. PO SCH (10:08)
[2021-07-04] MEDS: FOLIC ACID 1 MG TABLET. PO SCH (10:09)
[2021-07-04] MEDS: ASCORBIC ACID 1,000 MG TABLET PO SCH ×3 (10:09→21:22)
[2021-07-04] MEDS: ENOXAPARIN 40 MG/0.4 ML SYRINGE. SQ SCH ×2 (10:10→21:23)
[2021-07-04] MEDS: DICYCLOMINE HCL 10 MG CAPSULE PO SCH ×3 (10:10→21:22)
[2021-07-04] MEDS: NICOTINE 21MG PATCH. TD PRN (10:14)
[2021-07-04 11:00] VITALS: BP 117/61
--- NOTE | 2021-07-04 11:03 | NUR ---
SW following. Discussed with RN, pt from home with family, 2.5L (does not use oxygen at home), cardiac diet. COVID-19 positive. Pulmonology following. RN advised no SW needs at this time. SW will continue to follow.
[2021-07-04] MEDS: methylPREDNISolone SOD SUCC PF 125 MG/2 ML VIAL. IV SCH ×2 (14:44→21:22)
--- NOTE | 2021-07-04 14:44 | PDOC ---
[employer] PROGRESS NOTE Date of Service DOS: DATE: 07/04/21 TIME: 14:41 Chief Complaint Chief Complaint Acute hypoxic respiratory failure COVID-19 pneumonia Elevated D-dimer Acute electrolyte derangement with hyponatremia, hypochloremia suggestive of acute volume depletion PRASANNA due to vasomotor nephropathy Moderate protein malnutrition History of ulcerative colitis Morbid obesity Admit to medicine for further management Pulmonology consult Continue IV thiamine and vitamin C IV 4 mg dexamethasone Daily Pending ferritin, LDH, CRP, D-dimer labs Titrate O2 supplementation to maintain O2 saturation greater than 92% Resume home ulcerative colitis medications Lovenox, consult pharmacy for dosing for DVT prophylaxis Protonix GI prophylaxis ADA diet Full code Discussed with RN and SW Disposition patient management as above Surrogate decision maker is the History of Present Illness History of Present Illness 56 year old female with PMH of HTN, HLD, ulcerative colitis on sulfasalazine who presents with hypoxia in the setting of Covid. Was diagnosed on 06/26. He is unvaccinated. Over the past 4 days has had increasing shortness of breath. Does describe some burning chest pain. Has been constant for days. Not sharp or pleuritic. He has had fever/chills, cough, nausea, and diarrhea. Went to his PCP this morning was found to be hypoxic to 86-87% on room air. Improving with 2-4 L/min nasal cannula. 07/04/2021 No acute events overnight. Patient saturating 92% on 2 L nasal cannula. Will decrease his IV fluids to NS at 75 cc/h. Sodium improving and creatinine decreased from 1.6-1.2. Patient is still has prerenal azotemia. No concerns from nursing at this time. Patient's chart, labs, images were reviewed and discussed with RN Vitals/I&O Vitals/I&O: Vital Signs Date Time Temp Pulse Resp B/P (MAP) Pulse Ox O2 Delivery O2 Flow Rate FiO2 07/04/21 11:00 98.0 63 20 117/61 (79) 92 Nasal Cannula 2.5 98.0 I & O 07/03/21 07/03/21 07/04/21 15:00 23:00 07:00 Intake Total 200 ml 0 ml Balance 200 ml 0 ml Physical Exam General: Alert, Oriented X3, Cooperative Heart: Regular rate Lungs: Clear Abdomen: Normal bowel sounds Extremities: No clubbing Skin: No rashes, No significant lesion Labs Labs: Laboratory Tests Test 07/03/21 14:45 07/04/21 06:15 D-Dimer (Tisha) 1.43 ug/mlFEU (0.00-0.50) White Blood Count 4.6 x10^3/uL (4.0-11.0) Red Blood Count 4.28 x10^6/uL (4.30-5.70) Hemoglobin 14.0 g/dL (13.0-17.5) Hematocrit 40.6 % (39.0-53.0) Mean Corpuscular Volume 95 fL (79-100) Mean Corpuscular Hemoglobin 33 pg (25-35) Mean Corpuscular Hemoglobin Concent 34 g/dL (31-37) Red Cell Distribution Width 13.4 % (11.5-14.5) Platelet Count 111 x10^3/uL (140-400) Neutrophils (%) (Auto) 79 % (31-73) Lymphocytes (%) (Auto) 15 % (24-48) Monocytes (%) (Auto) 6 % (0-9) Eosinophils (%) (Auto) 0 % (0-3) Basophils (%) (Auto) 0 % (0-3) Neutrophils # (Auto) 3.6 x10^3/uL (1.8-7.7) Lymphocytes # (Auto) 0.7 x10^3/uL (1.0-4.8) Monocytes # (Auto) 0.3 x10^3/uL (0.0-1.1) Eosinophils # (Auto) 0.0 x10^3/uL (0.0-0.7) Basophils # (Auto) 0.0 x10^3/uL (0.0-0.2) Sodium Level 130 mmol/L (136-145) Potassium Level 4.2 mmol/L (3.5-5.1) Chloride Level 94 mmol/L (98-107) Carbon Dioxide Level 30 mmol/L (21-32) Anion Gap 6 (6-14) Blood Urea Nitrogen 29 mg/dL (8-26) Creatinine 1.2 mg/dL (0.7-1.3) Estimated GFR (Cockcroft-Gault) 63.1 Glucose Level 200 mg/dL (70-99) Calcium Level 8.6 mg/dL (8.5-10.1) Phosphorus Level 3.0 mg/dL (2.6-4.7) Magnesium Level 2.5 mg/dL (1.8-2.4) Assessment and Plan Assessmemt and Plan Problems Medical Problems: (1) Hyponatremia Status: Acute (2) Pneumonia due to COVID-19 virus Status: Acute (3) Respiratory failure with hypoxia Status: Acute Comment Review of Relevant I have reviewed the following items nadir (where applicable) has been applied. Medications: Current Medications Medications (Trade) Dose Ordered Sig/Zach Route PRN Reason Start Time Stop Time Status Last Admin Dose Admin Thiamine Mononitrate (Vitamin B-1) 300 mg DAILY PO 07/03/21 15:00 07/04/21 10:08 Zinc Sulfate (Orazinc) 220 mg DAILY PO 07/03/21 15:00 07/04/21 10:08 Remdesivir 200 mg/ Sodium Chloride 210 ml @ 210 mls/hr 1X ONCE IV 07/03/21 16:00 07/03/21 16:59 DC 07/03/21 16:26 Enoxaparin Sodium (Lovenox 40mg Syringe) 40 mg BID SQ 07/03/21 17:00 07/04/21 10:10 Aspirin (Ecotrin) 81 mg DAILY PO 07/04/21 09:00 07/04/21 10:08 Dicyclomine HCl (Bentyl) 10 mg TID PO 07/04/21 09:00 07/04/21 10:10 Folic Acid (Folic Acid) 1 mg DAILY PO 07/04/21 09:00 07/04/21 10:09 Nicotine (Nicoderm Cq 21mg) 1 patch PRN DAILY PRN TD SMOKING CESSATION 07/04/21 10:15 07/04/21 10:14 Justifications for Admission Other Justification COVID-19 positive test (U07.1, COVID-19) with Acute Pneumonia (J12.89, Other viral pneumonia) (If respiratory failure or sepsis present, add as separate assessment) JOHN TREJO MD Jul 04, 2021 14:44
[2021-07-04 15:00] VITALS: BP 145/78
[2021-07-04] MEDS: REMDESIVIR 100mg in NORMAL SALINE 250ML X 4 DAYS IV SCH (17:47)
[2021-07-04] MEDS: ATORVASTATIN CALCIUM 40 MG TABLET. PO SCH (21:22)
[2021-07-04 23:00] VITALS: BP 125/77
--- NOTE | 2021-07-04 23:30 | NUR ---
Pt moved to room 508 to allow for continuous O2 monitoring via [place]. Pt currently on 6L/NC, humidification applied d/t pt reporting nostrils burning. Will monitor.
[2021-07-05 03:00] VITALS: BP 123/75
[2021-07-05] MEDS: methylPREDNISolone SOD SUCC PF 125 MG/2 ML VIAL. IV SCH ×3 (06:19→21:03)
[2021-07-05] MEDS: IV NORMAL SALINE 1000ML BAG 1,000 ML IV SCH (06:20)
[2021-07-05 07:00] VITALS: BP 136/73
[2021-07-05] MEDS: ASCORBIC ACID 1,000 MG TABLET PO SCH ×3 (08:31→21:02)
[2021-07-05] MEDS: ASPIRIN ENTERIC COATED 81 MG TABLET.DR. PO SCH (08:31)
[2021-07-05] MEDS: ZINC SULFATE 220 MG CAPSULE. PO SCH (08:32)
[2021-07-05] MEDS: FOLIC ACID 1 MG TABLET. PO SCH (08:32)
[2021-07-05] MEDS: DICYCLOMINE HCL 10 MG CAPSULE PO SCH ×3 (08:32→21:02)
[2021-07-05] MEDS: THIAMINE 100 MG TABLET. PO SCH (08:33)
[2021-07-05] MEDS: ENOXAPARIN 40 MG/0.4 ML SYRINGE. SQ SCH ×2 (08:34→21:03)
[2021-07-05 08:41] LABS: BASO % 0 % (0-3); EOS % 0 % (0-3); HEMATOCRIT 37.9 % (39.0-53.0); HEMOGLOBIN 13.1 g/dL (13.0-17.5); LYMPH # 0.7 x10^3/uL (1.0-4.8); LYMPH % 6 % (24-48); MEAN CORPUSCULAR HEMOGLOBIN 33 pg (25-35); MEAN CORPUSCULAR HGB CONC 35 g/dL (31-37); MEAN CORPUSCULAR VOLUME 95 fL (79-100); MONO # 0.7 x10^3/uL (0.0-1.1); MONO % 6 % (0-9); NEUT # 9.7 x10^3/uL (1.8-7.7); NEUT % 88 % (31-73); PLATELET COUNT 150 x10^3/uL (140-400); RED CELL DISTRIBUTION WIDTH 13.2 % (11.5-14.5); WHITE BLOOD COUNT 11.1 x10^3/uL (4.0-11.0)
[2021-07-05 09:06] LABS: CALCIUM 8.2 mg/dL (8.5-10.1); CREATININE 0.9 mg/dL (0.7-1.3); GFR 87.9; MAGNESIUM 2.1 mg/dL (1.8-2.4); POTASSIUM 4.3 mmol/L (3.5-5.1)
[2021-07-05 11:00] VITALS: BP 133/77
[2021-07-05 11:51] LABS: % BANDS 2 % (0-9); % LYMPHS 7 % (24-48); % MONOS 4 % (0-10); % SEGS 87 % (35-66)
[2021-07-05 11:52] LABS: ANISOCYTOSIS PRESENT; PLT ESTIMATE ADEQUATE (ADEQUATE)
[2021-07-05 15:00] VITALS: BP 131/19
--- NOTE | 2021-07-05 15:18 | PDOC ---
[employer] PROGRESS NOTE Date of Service DOS: DATE: 07/05/21 TIME: 15:17 Chief Complaint Chief Complaint Acute hypoxic respiratory failure COVID-19 pneumonia Elevated D-dimer Acute electrolyte derangement with hyponatremia, hypochloremia suggestive of acute volume depletion PRASANNA due to vasomotor nephropathy Moderate protein malnutrition History of ulcerative colitis Morbid obesity Admit to medicine for further management Pulmonology consult Continue IV thiamine and vitamin C IV 4 mg dexamethasone Daily Pending ferritin, LDH, CRP, D-dimer labs Titrate O2 supplementation to maintain O2 saturation greater than 92% Resume home ulcerative colitis medications Lovenox, consult pharmacy for dosing for DVT prophylaxis Protonix GI prophylaxis ADA diet Full code Discussed with RN and SW Disposition patient management as above Surrogate decision maker is the History of Present Illness History of Present Illness 56 year old female with PMH of HTN, HLD, ulcerative colitis on sulfasalazine who presents with hypoxia in the setting of Covid. Was diagnosed on 06/26. He is unvaccinated. Over the past 4 days has had increasing shortness of breath. Does describe some burning chest pain. Has been constant for days. Not sharp or pleuritic. He has had fever/chills, cough, nausea, and diarrhea. Went to his PCP this morning was found to be hypoxic to 86-87% on room air. Improving with 2-4 L/min nasal cannula. 07/04/2021 No acute events overnight. Patient saturating 92% on 2 L nasal cannula. Will decrease his IV fluids to NS at 75 cc/h. Sodium improving and creatinine decreased from 1.6-1.2. Patient is still has prerenal azotemia. No concerns from nursing at this time. Patient's chart, labs, images were reviewed and discussed with RN 07/05/2021 No acute events overnight. Patient saturating 92% on 6 L nasal cannula. Will DC IV fluids. Continue with IV Remdesivir and IV steroids. Patient's chart, labs, images were reviewed and discussed with RN Vitals/I&O Vitals/I&O: Vital Signs Date Time Temp Pulse Resp B/P (MAP) Pulse Ox O2 Delivery O2 Flow Rate FiO2 07/05/21 11:00 97.8 75 18 133/77 (95) 93 Nasal Cannula 8.0 97.8 I & O 8/11/21 8/11/21 8/12/21 15:00 23:00 07:00 Intake Total 2868 ml 1000 ml Output Total 200 ml 800 ml Balance 2668 ml 200 ml Physical Exam General: Alert, Oriented X3, Cooperative Heart: Regular rate Lungs: Clear Abdomen: Normal bowel sounds Extremities: No clubbing Skin: No rashes, No significant lesion Labs Labs: Laboratory Tests Test 07/04/21 21:37 07/05/21 06:05 Glucose (Fingerstick) 335 mg/dL (70-99) White Blood Count 11.1 x10^3/uL (4.0-11.0) Red Blood Count 4.00 x10^6/uL (4.30-5.70) Hemoglobin 13.1 g/dL (13.0-17.5) Hematocrit 37.9 % (39.0-53.0) Mean Corpuscular Volume 95 fL (79-100) Mean Corpuscular Hemoglobin 33 pg (25-35) Mean Corpuscular Hemoglobin Concent 35 g/dL (31-37) Red Cell Distribution Width 13.2 % (11.5-14.5) Platelet Count 150 x10^3/uL (140-400) Neutrophils (%) (Auto) 88 % (31-73) Lymphocytes (%) (Auto) 6 % (24-48) Monocytes (%) (Auto) 6 % (0-9) Eosinophils (%) (Auto) 0 % (0-3) Basophils (%) (Auto) 0 % (0-3) Neutrophils # (Auto) 9.7 x10^3/uL (1.8-7.7) Lymphocytes # (Auto) 0.7 x10^3/uL (1.0-4.8) Monocytes # (Auto) 0.7 x10^3/uL (0.0-1.1) Eosinophils # (Auto) 0.0 x10^3/uL (0.0-0.7) Basophils # (Auto) 0.0 x10^3/uL (0.0-0.2) Segmented Neutrophils % 87 % (35-66) Band Neutrophils % 2 % (0-9) Lymphocytes % 7 % (24-48) Monocytes % 4 % (0-10) Platelet Estimate Adequate (ADEQUATE) Anisocytosis Present Sodium Level 136 mmol/L (136-145) Potassium Level 4.3 mmol/L (3.5-5.1) Chloride Level 100 mmol/L (98-107) Carbon Dioxide Level 28 mmol/L (21-32) Anion Gap 8 (6-14) Blood Urea Nitrogen 21 mg/dL (8-26) Creatinine 0.9 mg/dL (0.7-1.3) Estimated GFR (Cockcroft-Gault) 87.9 Glucose Level 198 mg/dL (70-99) Calcium Level 8.2 mg/dL (8.5-10.1) Magnesium Level 2.1 mg/dL (1.8-2.4) Assessment and Plan Assessmemt and Plan Problems Medical Problems: (1) Hyponatremia Status: Acute (2) Pneumonia due to COVID-19 virus Status: Acute (3) Respiratory failure with hypoxia Status: Acute Comment Review of Relevant I have reviewed the following items nadir (where applicable) has been applied. Medications: Current Medications Medications (Trade) Dose Ordered Sig/Zach Route PRN Reason Start Time Stop Time Status Last Admin Dose Admin Remdesivir 100 mg/ Sodium Chloride 230 ml @ 460 mls/hr Q24H IV 07/04/21 16:00 07/07/21 16:29 07/04/21 17:47 Atorvastatin Calcium (Lipitor) 80 mg QHS PO 07/04/21 21:00 07/04/21 21:22 Justifications for Admission Other Justification COVID-19 positive test (U07.1, COVID-19) with Acute Pneumonia (J12.89, Other viral pneumonia) (If respiratory failure or sepsis present, add as separate assessment) JOHN TREJO MD Jul 05, 2021 15:18
[2021-07-05] MEDS: REMDESIVIR 100mg in NORMAL SALINE 250ML X 4 DAYS IV SCH (15:41)
[2021-07-05 19:00] VITALS: BP 138/85
[2021-07-05] MEDS: ATORVASTATIN CALCIUM 40 MG TABLET. PO SCH (21:02)
[2021-07-05 23:00] VITALS: BP 117/59
[2021-07-06 03:00] VITALS: BP 127/55
[2021-07-06] MEDS: methylPREDNISolone SOD SUCC PF 125 MG/2 ML VIAL. IV SCH ×3 (06:27→21:55)
[2021-07-06 07:00] VITALS: BP 120/56
[2021-07-06 07:10] LABS: BASO % 0 % (0-3); EOS % 0 % (0-3); HEMATOCRIT 38.3 % (39.0-53.0); HEMOGLOBIN 13.1 g/dL (13.0-17.5); LYMPH # 0.6 x10^3/uL (1.0-4.8); LYMPH % 6 % (24-48); MEAN CORPUSCULAR HEMOGLOBIN 32 pg (25-35); MEAN CORPUSCULAR HGB CONC 34 g/dL (31-37); MEAN CORPUSCULAR VOLUME 95 fL (79-100); MONO # 0.6 x10^3/uL (0.0-1.1); MONO % 5 % (0-9); NEUT # 9.8 x10^3/uL (1.8-7.7); NEUT % 89 % (31-73); PLATELET COUNT 182 x10^3/uL (140-400); RED BLOOD COUNT 4.04 x10^6/uL (4.30-5.70); RED CELL DISTRIBUTION WIDTH 13.3 % (11.5-14.5)
[2021-07-06 07:24] LABS: CALCIUM 8.3 mg/dL (8.5-10.1); GFR 77.9; POTASSIUM 4.3 mmol/L (3.5-5.1)
[2021-07-06] MEDS: ASPIRIN ENTERIC COATED 81 MG TABLET.DR. PO SCH (08:42)
[2021-07-06] MEDS: ZINC SULFATE 220 MG CAPSULE. PO SCH (08:42)
[2021-07-06] MEDS: THIAMINE 100 MG TABLET. PO SCH (08:42)
[2021-07-06] MEDS: ASCORBIC ACID 1,000 MG TABLET PO SCH ×3 (08:42→21:55)
[2021-07-06] MEDS: DICYCLOMINE HCL 10 MG CAPSULE PO SCH ×3 (08:43→21:55)
[2021-07-06] MEDS: ENOXAPARIN 40 MG/0.4 ML SYRINGE. SQ SCH ×2 (08:43→21:55)
[2021-07-06] MEDS: FOLIC ACID 1 MG TABLET. PO SCH (08:43)
--- NOTE | 2021-07-06 10:10 | PDOC ---
PULMONARY PROGRESS NOTES DATE: 07/06/21 TIME: 10:07 Subjective Patient states that he had a rough night. He complained of coughing most of the night. Oxygen requirement up to 8 L. Vitals Vital Signs Date Time Temp Pulse Resp B/P (MAP) Pulse Ox O2 Delivery O2 Flow Rate FiO2 07/06/21 08:30 Nasal Cannula 10.0 07/06/21 07:00 98.1 57 20 120/56 (77) 96 98.1 Comments Visual exam done due to COVID-19. Patient is noted to be coughing. No obvious paradoxical breathing. Morbidly obese Trace leg edema Labs Laboratory Tests Test 07/04/21 21:37 07/05/21 06:05 07/06/21 06:15 Glucose (Fingerstick) 335 mg/dL (70-99) White Blood Count 11.1 x10^3/uL (4.0-11.0) 11.0 x10^3/uL (4.0-11.0) Red Blood Count 4.00 x10^6/uL (4.30-5.70) 4.04 x10^6/uL (4.30-5.70) Hemoglobin 13.1 g/dL (13.0-17.5) 13.1 g/dL (13.0-17.5) Hematocrit 37.9 % (39.0-53.0) 38.3 % (39.0-53.0) Mean Corpuscular Volume 95 fL (79-100) 95 fL (79-100) Mean Corpuscular Hemoglobin 33 pg (25-35) 32 pg (25-35) Mean Corpuscular Hemoglobin Concent 35 g/dL (31-37) 34 g/dL (31-37) Red Cell Distribution Width 13.2 % (11.5-14.5) 13.3 % (11.5-14.5) Platelet Count 150 x10^3/uL (140-400) 182 x10^3/uL (140-400) Neutrophils (%) (Auto) 88 % (31-73) 89 % (31-73) Lymphocytes (%) (Auto) 6 % (24-48) 6 % (24-48) Monocytes (%) (Auto) 6 % (0-9) 5 % (0-9) Eosinophils (%) (Auto) 0 % (0-3) 0 % (0-3) Basophils (%) (Auto) 0 % (0-3) 0 % (0-3) Neutrophils # (Auto) 9.7 x10^3/uL (1.8-7.7) 9.8 x10^3/uL (1.8-7.7) Lymphocytes # (Auto) 0.7 x10^3/uL (1.0-4.8) 0.6 x10^3/uL (1.0-4.8) Monocytes # (Auto) 0.7 x10^3/uL (0.0-1.1) 0.6 x10^3/uL (0.0-1.1) Eosinophils # (Auto) 0.0 x10^3/uL (0.0-0.7) 0.0 x10^3/uL (0.0-0.7) Basophils # (Auto) 0.0 x10^3/uL (0.0-0.2) 0.0 x10^3/uL (0.0-0.2) Segmented Neutrophils % 87 % (35-66) Band Neutrophils % 2 % (0-9) Lymphocytes % 7 % (24-48) Monocytes % 4 % (0-10) Platelet Estimate Adequate (ADEQUATE) Anisocytosis Present Sodium Level 136 mmol/L (136-145) 140 mmol/L (136-145) Potassium Level 4.3 mmol/L (3.5-5.1) 4.3 mmol/L (3.5-5.1) Chloride Level 100 mmol/L (98-107) 104 mmol/L (98-107) Carbon Dioxide Level 28 mmol/L (21-32) 32 mmol/L (21-32) Anion Gap 8 (6-14) 4 (6-14) Blood Urea Nitrogen 21 mg/dL (8-26) 19 mg/dL (8-26) Creatinine 0.9 mg/dL (0.7-1.3) 1.0 mg/dL (0.7-1.3) Estimated GFR (Cockcroft-Gault) 87.9 77.9 Glucose Level 198 mg/dL (70-99) 113 mg/dL (70-99) Calcium Level 8.2 mg/dL (8.5-10.1) 8.3 mg/dL (8.5-10.1) Magnesium Level 2.1 mg/dL (1.8-2.4) 2.0 mg/dL (1.8-2.4) Laboratory Tests Test 07/06/21 06:15 White Blood Count 11.0 x10^3/uL (4.0-11.0) Red Blood Count 4.04 x10^6/uL (4.30-5.70) Hemoglobin 13.1 g/dL (13.0-17.5) Hematocrit 38.3 % (39.0-53.0) Mean Corpuscular Volume 95 fL (79-100) Mean Corpuscular Hemoglobin 32 pg (25-35) Mean Corpuscular Hemoglobin Concent 34 g/dL (31-37) Red Cell Distribution Width 13.3 % (11.5-14.5) Platelet Count 182 x10^3/uL (140-400) Neutrophils (%) (Auto) 89 % (31-73) Lymphocytes (%) (Auto) 6 % (24-48) Monocytes (%) (Auto) 5 % (0-9) Eosinophils (%) (Auto) 0 % (0-3) Basophils (%) (Auto) 0 % (0-3) Neutrophils # (Auto) 9.8 x10^3/uL (1.8-7.7) Lymphocytes # (Auto) 0.6 x10^3/uL (1.0-4.8) Monocytes # (Auto) 0.6 x10^3/uL (0.0-1.1) Eosinophils # (Auto) 0.0 x10^3/uL (0.0-0.7) Basophils # (Auto) 0.0 x10^3/uL (0.0-0.2) Sodium Level 140 mmol/L (136-145) Potassium Level 4.3 mmol/L (3.5-5.1) Chloride Level 104 mmol/L (98-107) Carbon Dioxide Level 32 mmol/L (21-32) Anion Gap 4 (6-14) Blood Urea Nitrogen 19 mg/dL (8-26) Creatinine 1.0 mg/dL (0.7-1.3) Estimated GFR (Cockcroft-Gault) 77.9 Glucose Level 113 mg/dL (70-99) Calcium Level 8.3 mg/dL (8.5-10.1) Magnesium Level 2.0 mg/dL (1.8-2.4) Medications Active Scripts Medications Dose Route/Sig Max Daily Dose Days Date Category Folic Acid 0.8 Mg Capsule 1 Cap PO DAILY 30 07/03/21 Reported Omeprazole 40 Mg Capsule.dr 1 Cap PO DAILY 07/03/21 Reported Sulfasalazine 500 Mg Tablet 500 Mg PO EVERY 6 HRS 01/28/19 Reported Lisinopril-Hctz 20-25 Mg Tab (Lisinopril/Hydrochlorothiazide) 1 Each Tablet 1 Tab PO DAILY 12/11/16 Reported Flovent 220MCG Hfa (Fluticasone Propionate) 12 Gm Aer.w.adap 12 Gm IH BID 12/11/16 Reported Albuterol Sulfate Neb Soln (Albuterol Sulfate) 2.5 Mg/3 Ml Vial.neb 1 Vial NEB PRN Q4HRS 12/11/16 Reported Multi-Vitamin Daily (Multivitamin) 1 Each Tablet 1 Each PO DAILY 12/11/16 Reported Fish Oil 1,000 Mg Softgel ([place]-3/Dha/Epa/Fish Oil) 1 Each Capsule 1 Each PO DAILY 12/11/16 Reported Cetirizine Hcl 10 Mg Tab.chew 10 Mg PO DAILY 12/11/16 Reported Atorvastatin Calcium 80 Mg Tablet 80 Mg PO HS 12/11/16 Reported Omeprazole 40 Mg Capsule. 40 Mg PO DAILY 12/11/16 Reported Dicyclomine Hcl 10 Mg Capsule 10 Mg PO TID 12/11/16 Reported Aspir 81 (Aspirin) 81 Mg Tablet. 81 Mg PO DAILY 12/11/16 Reported Vitamin D (Cholecalciferol (Vitamin D3)) 1,000 Unit Capsule 1,000 Unit PO DAILY 12/11/16 Reported Impression . 1. Acute hypoxic respiratory failure in a patient who is morbidly obese, has COVID-19 viral pneumonia and has underlying tobaccoism. He is at high risk for worsening hypoxia and clinical deterioration. He also has been on sulfasalazine for ulcerative colitis. Currently, oxygen requirement is at 8 L 2. Abnormal chest x-ray with bilateral patchy interstitial infiltrates, consistent with COVID-19 viral pneumonia. 3. Underlying tobaccoism with suspected chronic obstructive pulmonary disease. 4. Underlying morbid obesity. Plan . 1. Continue to monitor respiratory status closely. Continue high flow oxygen at 8 to 10 L. 2. The patient was initiated on remdesivir and IV Solu-Medrol. 3. DVT prophylaxis with Lovenox. 4. No clinical suspicion for bacterial pneumonia. 5. Discussed with RN, discussed with the patient. We will follow his clinical course. And see him as needed KAYLI ACUÑA MD Jul 06, 2021 10:09
[2021-07-06 11:00] VITALS: BP 116/62
--- NOTE | 2021-07-06 11:04 | NUR ---
SW following. Discussed with RN, pt from home with family, 10L, cardiac diet. COVID-19 positive. RN advised no SW needs at this time. SW will continue to follow.
--- NOTE | 2021-07-06 11:07 | PDOC ---
[employer] PROGRESS NOTE Date of Service DOS: DATE: 07/06/21 TIME: 11:06 Chief Complaint Chief Complaint Acute hypoxic respiratory failure COVID-19 pneumonia Elevated D-dimer Acute electrolyte derangement with hyponatremia, hypochloremia suggestive of acute volume depletion PRASANNA due to vasomotor nephropathy Moderate protein malnutrition History of ulcerative colitis Morbid obesity Admit to medicine for further management Pulmonology consult Continue IV thiamine and vitamin C IV 4 mg dexamethasone Daily Pending ferritin, LDH, CRP, D-dimer labs Titrate O2 supplementation to maintain O2 saturation greater than 92% Resume home ulcerative colitis medications Lovenox, consult pharmacy for dosing for DVT prophylaxis Protonix GI prophylaxis ADA diet Full code Discussed with RN and SW Disposition patient management as above Surrogate decision maker is the History of Present Illness History of Present Illness 56 year old female with PMH of HTN, HLD, ulcerative colitis on sulfasalazine who presents with hypoxia in the setting of Covid. Was diagnosed on 06/26. He is unvaccinated. Over the past 4 days has had increasing shortness of breath. Does describe some burning chest pain. Has been constant for days. Not sharp or pleuritic. He has had fever/chills, cough, nausea, and diarrhea. Went to his PCP this morning was found to be hypoxic to 86-87% on room air. Improving with 2-4 L/min nasal cannula. 07/04/2021 No acute events overnight. Patient saturating 92% on 2 L nasal cannula. Will decrease his IV fluids to NS at 75 cc/h. Sodium improving and creatinine decreased from 1.6-1.2. Patient is still has prerenal azotemia. No concerns from nursing at this time. Patient's chart, labs, images were reviewed and discussed with RN 07/05/2021 No acute events overnight. Patient saturating 92% on 6 L nasal cannula. Will DC IV fluids. Continue with IV Remdesivir and IV steroids. Patient's chart, labs, images were reviewed and discussed with RN 07/06/2021 No acute events overnight. Patient saturating 93% on 10 L nasal cannula. Crea tinine has improved and electrolytes have normalized. Continue with IV Remdesivir and steroids. Pulmonology following. Patient's chart, labs, images were reviewed and discussed with RN Vitals/I&O Vitals/I&O: Vital Signs Date Time Temp Pulse Resp B/P (MAP) Pulse Ox O2 Delivery O2 Flow Rate FiO2 07/06/21 08:30 Nasal Cannula 10.0 07/06/21 07:00 98.1 57 20 120/56 (77) 96 98.1 I & O 07/05/21 07/05/21 07/06/21 15:00 23:00 07:00 Intake Total 350 ml Output Total 400 ml 1300 ml Balance -50 ml -1300 ml Physical Exam General: Alert, Oriented X3, Cooperative Heart: Regular rate Abdomen: Normal bowel sounds Extremities: No clubbing Skin: No rashes, No significant lesion Labs Labs: Laboratory Tests Test 07/06/21 06:15 White Blood Count 11.0 x10^3/uL (4.0-11.0) Red Blood Count 4.04 x10^6/uL (4.30-5.70) Hemoglobin 13.1 g/dL (13.0-17.5) Hematocrit 38.3 % (39.0-53.0) Mean Corpuscular Volume 95 fL (79-100) Mean Corpuscular Hemoglobin 32 pg (25-35) Mean Corpuscular Hemoglobin Concent 34 g/dL (31-37) Red Cell Distribution Width 13.3 % (11.5-14.5) Platelet Count 182 x10^3/uL (140-400) Neutrophils (%) (Auto) 89 % (31-73) Lymphocytes (%) (Auto) 6 % (24-48) Monocytes (%) (Auto) 5 % (0-9) Eosinophils (%) (Auto) 0 % (0-3) Basophils (%) (Auto) 0 % (0-3) Neutrophils # (Auto) 9.8 x10^3/uL (1.8-7.7) Lymphocytes # (Auto) 0.6 x10^3/uL (1.0-4.8) Monocytes # (Auto) 0.6 x10^3/uL (0.0-1.1) Eosinophils # (Auto) 0.0 x10^3/uL (0.0-0.7) Basophils # (Auto) 0.0 x10^3/uL (0.0-0.2) Sodium Level 140 mmol/L (136-145) Potassium Level 4.3 mmol/L (3.5-5.1) Chloride Level 104 mmol/L (98-107) Carbon Dioxide Level 32 mmol/L (21-32) Anion Gap 4 (6-14) Blood Urea Nitrogen 19 mg/dL (8-26) Creatinine 1.0 mg/dL (0.7-1.3) Estimated GFR (Cockcroft-Gault) 77.9 Glucose Level 113 mg/dL (70-99) Calcium Level 8.3 mg/dL (8.5-10.1) Magnesium Level 2.0 mg/dL (1.8-2.4) Assessment and Plan Assessmemt and Plan Problems Medical Problems: (1) Hyponatremia Status: Acute (2) Pneumonia due to COVID-19 virus Status: Acute (3) Respiratory failure with hypoxia Status: Acute Comment Review of Relevant I have reviewed the following items nadir (where applicable) has been applied. Justifications for Admission Other Justification COVID-19 positive test (U07.1, COVID-19) with Acute Pneumonia (J12.89, Other viral pneumonia) (If respiratory failure or sepsis present, add as separate assessment) JOHN TREJO MD Jul 06, 2021 11:07
[2021-07-06] MEDS: BENZONATATE 100 MG CAPSULE. PO SCH ×2 (14:16→21:55)
[2021-07-06 15:30] VITALS: BP 146/73
[2021-07-06] MEDS: REMDESIVIR 100mg in NORMAL SALINE 250ML X 4 DAYS IV SCH (16:35)
--- NOTE | 2021-07-06 18:38 | NUR ---
Patient given IS and educated how to use and how often to use. Patient demonstrated understanding.
[2021-07-06 19:00] VITALS: BP 138/70
[2021-07-06] MEDS: ATORVASTATIN CALCIUM 40 MG TABLET. PO SCH (21:55)
[2021-07-06 23:05] VITALS: BP 131/58
[2021-07-07 03:11] VITALS: BP 140/84
[2021-07-07] MEDS: methylPREDNISolone SOD SUCC PF 125 MG/2 ML VIAL. IV SCH ×3 (06:23→20:52)
[2021-07-07 07:00] VITALS: BP 134/88
--- NOTE | 2021-07-07 09:02 | PDOC ---
PULMONARY PROGRESS NOTES DATE: 07/07/21 TIME: 09:01 Subjective Patient states that he slept better last night. Remains on high flow cannula. No paradoxical breathing or no increased respiratory distress. Vitals Vital Signs Date Time Temp Pulse Resp B/P (MAP) Pulse Ox O2 Delivery O2 Flow Rate FiO2 07/07/21 07:00 97.6 62 18 134/88 (103) 94 High Flow Nasal Cannula 10.0 97.6 Comments Visual exam done due to COVID-19. Patient is noted to be coughing. No obvious paradoxical breathing. Morbidly obese Trace leg edema Labs Laboratory Tests Test 07/06/21 06:15 White Blood Count 11.0 x10^3/uL (4.0-11.0) Red Blood Count 4.04 x10^6/uL (4.30-5.70) Hemoglobin 13.1 g/dL (13.0-17.5) Hematocrit 38.3 % (39.0-53.0) Mean Corpuscular Volume 95 fL (79-100) Mean Corpuscular Hemoglobin 32 pg (25-35) Mean Corpuscular Hemoglobin Concent 34 g/dL (31-37) Red Cell Distribution Width 13.3 % (11.5-14.5) Platelet Count 182 x10^3/uL (140-400) Neutrophils (%) (Auto) 89 % (31-73) Lymphocytes (%) (Auto) 6 % (24-48) Monocytes (%) (Auto) 5 % (0-9) Eosinophils (%) (Auto) 0 % (0-3) Basophils (%) (Auto) 0 % (0-3) Neutrophils # (Auto) 9.8 x10^3/uL (1.8-7.7) Lymphocytes # (Auto) 0.6 x10^3/uL (1.0-4.8) Monocytes # (Auto) 0.6 x10^3/uL (0.0-1.1) Eosinophils # (Auto) 0.0 x10^3/uL (0.0-0.7) Basophils # (Auto) 0.0 x10^3/uL (0.0-0.2) Sodium Level 140 mmol/L (136-145) Potassium Level 4.3 mmol/L (3.5-5.1) Chloride Level 104 mmol/L (98-107) Carbon Dioxide Level 32 mmol/L (21-32) Anion Gap 4 (6-14) Blood Urea Nitrogen 19 mg/dL (8-26) Creatinine 1.0 mg/dL (0.7-1.3) Estimated GFR (Cockcroft-Gault) 77.9 Glucose Level 113 mg/dL (70-99) Calcium Level 8.3 mg/dL (8.5-10.1) Magnesium Level 2.0 mg/dL (1.8-2.4) Medications Active Scripts Medications Dose Route/Sig Max Daily Dose Days Date Category Folic Acid 0.8 Mg Capsule 1 Cap PO DAILY 30 07/03/21 Reported Omeprazole 40 Mg Capsule.dr 1 Cap PO DAILY 07/03/21 Reported Sulfasalazine 500 Mg Tablet 500 Mg PO EVERY 6 HRS 01/28/19 Reported Lisinopril-Hctz 20-25 Mg Tab (Lisinopril/Hydrochlorothiazide) 1 Each Tablet 1 Tab PO DAILY 12/11/16 Reported Flovent 220MCG Hfa (Fluticasone Propionate) 12 Gm Aer.w.adap 12 Gm IH BID 12/11/16 Reported Albuterol Sulfate Neb Soln (Albuterol Sulfate) 2.5 Mg/3 Ml Vial.neb 1 Vial NEB PRN Q4HRS 12/11/16 Reported Multi-Vitamin Daily (Multivitamin) 1 Each Tablet 1 Each PO DAILY 12/11/16 Reported Fish Oil 1,000 Mg Softgel ([place]-3/Dha/Epa/Fish Oil) 1 Each Capsule 1 Each PO DAILY 12/11/16 Reported Cetirizine Hcl 10 Mg Tab.chew 10 Mg PO DAILY 12/11/16 Reported Atorvastatin Calcium 80 Mg Tablet 80 Mg PO HS 12/11/16 Reported Omeprazole 40 Mg Capsule. 40 Mg PO DAILY 12/11/16 Reported Dicyclomine Hcl 10 Mg Capsule 10 Mg PO TID 12/11/16 Reported Aspir 81 (Aspirin) 81 Mg Tablet.dr 81 Mg PO DAILY 12/11/16 Reported Vitamin D (Cholecalciferol (Vitamin D3)) 1,000 Unit Capsule 1,000 Unit PO DAILY 12/11/16 Reported Impression . 1. Acute hypoxic respiratory failure in a patient who is morbidly obese, has COVID-19 viral pneumonia and has underlying tobaccoism. He is at high risk for worsening hypoxia and clinical deterioration. He also has been on sulfasalazine for ulcerative colitis. Currently, oxygen requirement is at 8 L 2. Abnormal chest x-ray with bilateral patchy interstitial infiltrates, consistent with COVID-19 viral pneumonia. 3. Underlying tobaccoism with suspected chronic obstructive pulmonary disease. 4. Underlying morbid obesity. Plan . 1. Continue to monitor respiratory status closely. Continue high flow oxygen at 10 L. 2. The patient was initiated on remdesivir and IV Solu-Medrol. 3. DVT prophylaxis with Lovenox. 4. No clinical suspicion for bacterial pneumonia. 5. Discussed with RN, discussed with the patient. KAYLI ACUÑA MD Jul 07, 2021 09:02
[2021-07-07 10:46] VITALS: BP 39/87
[2021-07-07] MEDS: THIAMINE 100 MG TABLET. PO SCH (10:51)
[2021-07-07] MEDS: ENOXAPARIN 40 MG/0.4 ML SYRINGE. SQ SCH ×2 (10:51→20:51)
[2021-07-07] MEDS: DICYCLOMINE HCL 10 MG CAPSULE PO SCH ×3 (10:51→20:52)
[2021-07-07] MEDS: ZINC SULFATE 220 MG CAPSULE. PO SCH (10:51)
[2021-07-07] MEDS: ASPIRIN ENTERIC COATED 81 MG TABLET.DR. PO SCH (10:53)
[2021-07-07] MEDS: FOLIC ACID 1 MG TABLET. PO SCH (10:54)
[2021-07-07] MEDS: ASCORBIC ACID 1,000 MG TABLET PO SCH ×3 (10:54→20:51)
[2021-07-07] MEDS: BENZONATATE 100 MG CAPSULE. PO SCH ×3 (10:54→20:52)
--- NOTE | 2021-07-07 12:42 | PDOC ---
[employer] PROGRESS NOTE Date of Service DOS: DATE: 07/07/21 TIME: 12:41 Chief Complaint Chief Complaint Acute hypoxic respiratory failure COVID-19 pneumonia Elevated D-dimer Acute electrolyte derangement with hyponatremia, hypochloremia suggestive of acute volume depletion PRASANNA due to vasomotor nephropathy Moderate protein malnutrition History of ulcerative colitis Morbid obesity Admit to medicine for further management Pulmonology consult Continue IV thiamine and vitamin C IV 4 mg dexamethasone Daily Pending ferritin, LDH, CRP, D-dimer labs Titrate O2 supplementation to maintain O2 saturation greater than 92% Resume home ulcerative colitis medications Lovenox, consult pharmacy for dosing for DVT prophylaxis Protonix GI prophylaxis ADA diet Full code Discussed with RN and SW Disposition patient management as above Surrogate decision maker is the History of Present Illness History of Present Illness 56 year old female with PMH of HTN, HLD, ulcerative colitis on sulfasalazine who presents with hypoxia in the setting of Covid. Was diagnosed on 06/26. He is unvaccinated. Over the past 4 days has had increasing shortness of breath. Does describe some burning chest pain. Has been constant for days. Not sharp or pleuritic. He has had fever/chills, cough, nausea, and diarrhea. Went to his PCP this morning was found to be hypoxic to 86-87% on room air. Improving with 2-4 L/min nasal cannula. 07/04/2021 No acute events overnight. Patient saturating 92% on 2 L nasal cannula. Will decrease his IV fluids to NS at 75 cc/h. Sodium improving and creatinine decreased from 1.6-1.2. Patient is still has prerenal azotemia. No concerns from nursing at this time. Patient's chart, labs, images were reviewed and discussed with RN 07/05/2021 No acute events overnight. Patient saturating 92% on 6 L nasal cannula. Will DC IV fluids. Continue with IV Remdesivir and IV steroids. Patient's chart, labs, images were reviewed and discussed with RN 07/06/2021 No acute events overnight. Patient saturating 93% on 10 L nasal cannula. Crea tinine has improved and electrolytes have normalized. Continue with IV Remdesivir and steroids. Pulmonology following. Patient's chart, labs, images were reviewed and discussed with RN 07/07/2021 No acute events overnight. Patient saturating 96% on 10 L nasal cannula. Resting comfortably at bedside. Currently on Remdesivir and IV steroids. No concerns from nursing at this time. Patient's chart, labs, images were reviewed and discussed with RN Vitals/I&O Vitals/I&O: Vital Signs Date Time Temp Pulse Resp B/P (MAP) Pulse Ox O2 Delivery O2 Flow Rate FiO2 07/07/21 10:46 98.5 67 18 39/87 (71) 95 High Flow Nasal Cannula 10.0 98.5 I & O 07/06/21 07/06/21 07/07/21 15:00 23:00 07:00 Intake Total 400 ml 200 ml Output Total 1000 ml Balance 400 ml 200 ml -1000 ml Physical Exam General: Alert, Oriented X3, Cooperative Heart: Regular rate Abdomen: Normal bowel sounds Extremities: No clubbing Skin: No rashes, No significant lesion Assessment and Plan Assessmemt and Plan Problems Medical Problems: (1) Hyponatremia Status: Acute (2) Pneumonia due to COVID-19 virus Status: Acute (3) Respiratory failure with hypoxia Status: Acute Comment Review of Relevant I have reviewed the following items nadir (where applicable) has been applied. Medications: Current Medications Medications (Trade) Dose Ordered Sig/Zach Route PRN Reason Start Time Stop Time Status Last Admin Dose Admin Benzonatate (Tessalon Perle) 100 mg [id number] PO 07/06/21 14:00 07/07/21 10:54 Justifications for Admission Other Justification COVID-19 positive test (U07.1, COVID-19) with Acute Pneumonia (J12.89, Other viral pneumonia) (If respiratory failure or sepsis present, add as separate assessment) JOHN TREJO MD Jul 07, 2021 12:42
[2021-07-07 15:00] VITALS: BP 149/83
[2021-07-07] MEDS: REMDESIVIR 100mg in NORMAL SALINE 250ML X 4 DAYS IV SCH (15:01)
[2021-07-07 19:00] VITALS: BP 142/61
[2021-07-07] MEDS ORDERED: POLYVINYL ALCOHOL 1.4% OPHTH SOLUTION 15ML BOTTLE. OU PRN (20:15)
[2021-07-07] MEDS: ATORVASTATIN CALCIUM 40 MG TABLET. PO SCH (20:52)
[2021-07-07 23:03] VITALS: BP 136/63
[2021-07-08] VITALS (7 sets, daily range): BP systolic 144–172; BP diastolic 55–75
[2021-07-08] MEDS: methylPREDNISolone SOD SUCC PF 125 MG/2 ML VIAL. IV SCH (05:40)
--- NOTE | 2021-07-08 09:38 | PDOC ---
PULMONARY PROGRESS NOTES DATE: 07/08/21 TIME: 09:37 Subjective Remains on high flow cannula. Patient says he did not sleep well last night. No paradoxical breathing or no increased respiratory distress. Vitals Vital Signs Date Time Temp Pulse Resp B/P (MAP) Pulse Ox O2 Delivery O2 Flow Rate FiO2 07/08/21 06:57 98.1 49 20 151/71 (97) 93 Nasal Cannula 98.1 07/07/21 20:00 10.0 Comments Visual exam done due to COVID-19. Patient is noted to be coughing. No obvious paradoxical breathing. Morbidly obese Trace leg edema Medications Active Scripts Medications Dose Route/Sig Max Daily Dose Days Date Category Folic Acid 0.8 Mg Capsule 1 Cap PO DAILY 30 07/03/21 Reported Omeprazole 40 Mg Capsule. 1 Cap PO DAILY 07/03/21 Reported Sulfasalazine 500 Mg Tablet 500 Mg PO EVERY 6 HRS 01/28/19 Reported Lisinopril-Hctz 20-25 Mg Tab (Lisinopril/Hydrochlorothiazide) 1 Each Tablet 1 Tab PO DAILY 12/11/16 Reported Flovent 220MCG Hfa (Fluticasone Propionate) 12 Gm Aer.w.adap 12 Gm IH BID 12/11/16 Reported Albuterol Sulfate Neb Soln (Albuterol Sulfate) 2.5 Mg/3 Ml Vial.neb 1 Vial NEB PRN Q4HRS 12/11/16 Reported Multi-Vitamin Daily (Multivitamin) 1 Each Tablet 1 Each PO DAILY 12/11/16 Reported Fish Oil 1,000 Mg Softgel ([place]-3/Dha/Epa/Fish Oil) 1 Each Capsule 1 Each PO DAILY 12/11/16 Reported Cetirizine Hcl 10 Mg Tab.chew 10 Mg PO DAILY 12/11/16 Reported Atorvastatin Calcium 80 Mg Tablet 80 Mg PO HS 12/11/16 Reported Omeprazole 40 Mg Capsule. 40 Mg PO DAILY 12/11/16 Reported Dicyclomine Hcl 10 Mg Capsule 10 Mg PO TID 12/11/16 Reported Aspir 81 (Aspirin) 81 Mg Tablet. 81 Mg PO DAILY 12/11/16 Reported Vitamin D (Cholecalciferol (Vitamin D3)) 1,000 Unit Capsule 1,000 Unit PO DAILY 12/11/16 Reported Impression . 1. Acute hypoxic respiratory failure in a patient who is morbidly obese, has COVID-19 viral pneumonia and has underlying tobaccoism. He is at high risk for worsening hypoxia and clinical deterioration. He also has been on sulfasalazine for ulcerative colitis. Currently, oxygen requirement is at 8 L 2. Abnormal chest x-ray with bilateral patchy interstitial infiltrates, consistent with COVID-19 viral pneumonia. 3. Underlying tobaccoism with suspected chronic obstructive pulmonary disease. 4. Underlying morbid obesity. Plan . 1. Continue to monitor respiratory status closely. Continue high flow oxygen at 10 L. 2. The patient was initiated on remdesivir and IV Solu-Medrol. 3. DVT prophylaxis with Lovenox. 4. No clinical suspicion for bacterial pneumonia. 5. Discussed with RN, discussed with the patient. 6. We will add BiPAP at nighttime. He likely has underlying MARGARITA, untreated KAYLI ACUÑA MD Jul 08, 2021 09:38
--- NOTE | 2021-07-08 10:59 | PDOC ---
[facility] PROGRESS NOTE Date of Service DOS: DATE: 07/08/21 TIME: 10:58 Chief Complaint Chief Complaint Acute hypoxic respiratory failure COVID-19 pneumonia Elevated D-dimer Acute electrolyte derangement with hyponatremia, hypochloremia suggestive of acute volume depletion PRASANNA due to vasomotor nephropathy Moderate protein malnutrition History of ulcerative colitis Morbid obesity Admit to medicine for further management Pulmonology consult Continue IV thiamine and vitamin C IV 4 mg dexamethasone Daily Pending ferritin, LDH, CRP, D-dimer labs Titrate O2 supplementation to maintain O2 saturation greater than 92% Resume home ulcerative colitis medications Lovenox, consult pharmacy for dosing for DVT prophylaxis Protonix GI prophylaxis ADA diet Full code Discussed with RN and SW Disposition patient management as above Surrogate decision maker is the History of Present Illness History of Present Illness 56 year old female with PMH of HTN, HLD, ulcerative colitis on sulfasalazine who presents with hypoxia in the setting of Covid. Was diagnosed on 06/26. He is unvaccinated. Over the past 4 days has had increasing shortness of breath. Does describe some burning chest pain. Has been constant for days. Not sharp or pleuritic. He has had fever/chills, cough, nausea, and diarrhea. Went to his PCP this morning was found to be hypoxic to 86-87% on room air. Improving with 2-4 L/min nasal cannula. 07/04/2021 No acute events overnight. Patient saturating 92% on 2 L nasal cannula. Will decrease his IV fluids to NS at 75 cc/h. Sodium improving and creatinine decreased from 1.6-1.2. Patient is still has prerenal azotemia. No concerns from nursing at this time. Patient's chart, labs, images were reviewed and discussed with RN 07/05/2021 No acute events overnight. Patient saturating 92% on 6 L nasal cannula. Will DC IV fluids. Continue with IV Remdesivir and IV steroids. Patient's chart, labs, images were reviewed and discussed with RN 07/06/2021 No acute events overnight. Patient saturating 93% on 10 L nasal cannula. Crea tinine has improved and electrolytes have normalized. Continue with IV Remdesivir and steroids. Pulmonology following. Patient's chart, labs, images were reviewed and discussed with RN 07/07/2021 No acute events overnight. Patient saturating 96% on 10 L nasal cannula. Resting comfortably at bedside. Currently on Remdesivir and IV steroids. No concerns from nursing at this time. Patient's chart, labs, images were reviewed and discussed with RN 07/08/2021 No acute events overnight. Patient saturating 93% on 10 L nasal cannula. No accessory muscle use and no dyspnea during my interview. Patient's chart, labs, images were reviewed and discussed with RN Vitals/I&O Vitals/I&O: Vital Signs Date Time Temp Pulse Resp B/P (MAP) Pulse Ox O2 Delivery O2 Flow Rate FiO2 07/08/21 06:57 98.1 49 20 151/71 (97) 93 Nasal Cannula 98.1 07/07/21 20:00 10.0 I & O 07/07/21 07/07/21 07/08/21 15:00 23:00 07:00 Intake Total 2000 ml 300 ml Output Total 1700 ml 875 ml Balance 300 ml 300 ml -875 ml Physical Exam General: Alert, Oriented X3, Cooperative Heart: Regular rate Abdomen: Normal bowel sounds Extremities: No clubbing Skin: No rashes, No significant lesion Assessment and Plan Assessmemt and Plan Problems Medical Problems: (1) Hyponatremia Status: Acute (2) Pneumonia due to COVID-19 virus Status: Acute (3) Respiratory failure with hypoxia Status: Acute Comment Review of Relevant I have reviewed the following items nadir (where applicable) has been applied. Medications: Current Medications Medications (Trade) Dose Ordered Sig/Zach Route PRN Reason Start Time Stop Time Status Last Admin Dose Admin Glycerin/ Hypromellose/ Polyethylene (Artificial Tears) 1 drop PRN Q15MIN PRN OU DRY EYE 07/07/21 20:15 07/07/21 21:00 Justifications for Admission Other Justification COVID-19 positive test (U07.1, COVID-19) with Acute Pneumonia (J12.89, Other viral pneumonia) (If respiratory failure or sepsis present, add as separate assessment) JOHN TREJO MD Jul 08, 2021 10:58
[2021-07-08] MEDS: ASCORBIC ACID 1,000 MG TABLET PO SCH ×3 (11:26→20:41)
[2021-07-08] MEDS: BENZONATATE 100 MG CAPSULE. PO SCH ×3 (11:27→20:55)
[2021-07-08] MEDS: ZINC SULFATE 220 MG CAPSULE. PO SCH (11:27)
[2021-07-08] MEDS: DICYCLOMINE HCL 10 MG CAPSULE PO SCH ×3 (11:27→20:41)
[2021-07-08] MEDS: THIAMINE 100 MG TABLET. PO SCH (11:27)
[2021-07-08] MEDS: FOLIC ACID 1 MG TABLET. PO SCH (11:27)
[2021-07-08] MEDS: ASPIRIN ENTERIC COATED 81 MG TABLET.DR. PO SCH (11:27)
[2021-07-08] MEDS: ENOXAPARIN 40 MG/0.4 ML SYRINGE. SQ SCH ×2 (11:28→20:41)
[2021-07-08] MEDS: methylPREDNISolone SOD SUCC PF 40 MG/ML VIAL. IV SCH ×2 (15:11→20:41)
[2021-07-08] MEDS: ATORVASTATIN CALCIUM 40 MG TABLET. PO SCH (20:41)
[2021-07-09] MEDS: hydroCHLOROthiazide 25 MG TABLET PO SCH ×2 (00:19→10:35)
[2021-07-09] MEDS: LISINOPRIL 20 MG TABLET PO SCH ×2 (00:20→10:36)
[2021-07-09 03:00] VITALS: BP 169/80
[2021-07-09] MEDS: methylPREDNISolone SOD SUCC PF 40 MG/ML VIAL. IV SCH ×3 (05:33→21:33)
[2021-07-09 07:00] VITALS: BP 190/97
--- NOTE | 2021-07-09 07:47 | PDOC ---
[facility] PROGRESS NOTE Date of Service DOS: DATE: 07/09/21 TIME: 07:45 Chief Complaint Chief Complaint Acute hypoxic respiratory failure COVID-19 pneumonia Elevated D-dimer Acute electrolyte derangement with hyponatremia, hypochloremia suggestive of acute volume depletion PRASANNA due to vasomotor nephropathy Moderate protein malnutrition History of ulcerative colitis Morbid obesity Wheezing - add breo inhaler 200mcg Admit to medicine for further management Pulmonology consult Continue IV thiamine and vitamin C IV 4 mg dexamethasone Daily Pending ferritin, LDH, CRP, D-dimer labs Titrate O2 supplementation to maintain O2 saturation greater than 92% Resume home ulcerative colitis medications Lovenox, consult pharmacy for dosing for DVT prophylaxis Protonix GI prophylaxis ADA diet Full code Discussed with RN and SW Disposition patient management as above Surrogate decision maker is the History of Present Illness History of Present Illness Mr Marcus is a 56 year old female with PMH of HTN, HLD, ulcerative colitis on sulfasalazine who presents with hypoxia in the setting of Covid. Was diagnosed on 06/26. He is unvaccinated. Over the past 4 days has had increasing shortness of breath. Does describe some burning chest pain. Has been constant for days. Not sharp or pleuritic. He has had fever/chills, cough, nausea, and diarrhea. Went to his PCP this morning was found to be hypoxic to 86-87% on room air. Improving with 2-4 L/min nasal cannula. 07/04/2021 No acute events overnight. Patient saturating 92% on 2 L nasal cannula. Will decrease his IV fluids to NS at 75 cc/h. Sodium improving and creatinine decreased from 1.6-1.2. Patient is still has prerenal azotemia. No concerns from nursing at this time. Patient's chart, labs, images were reviewed and discussed with RN 07/05/2021 No acute events overnight. Patient saturating 92% on 6 L nasal cannula. Will DC IV fluids. Continue with IV Remdesivir and IV steroids. Patient's chart, labs, images were reviewed and discussed with RN 07/06/2021 No acute events overnight. Patient saturating 93% on 10 L nasal cannula. Creatinine has improved and electrolytes have normalized. Continue with IV Remdesivir and steroids. Pulmonology following. Patient's chart, labs, images were reviewed and discussed with RN 07/07/2021 No acute events overnight. Patient saturating 96% on 10 L nasal cannula. Resting comfortably at bedside. Currently on Remdesivir and IV steroids. No concerns from nursing at this time. Patient's chart, labs, images were reviewed and discussed with RN 07/08/2021 No acute events overnight. Patient saturating 93% on 10 L nasal cannula. No accessory muscle use and no dyspnea during my interview. Patient's chart, labs, images were reviewed and discussed with RN Afebrile overnight tolerated BiPAP well says he slept better. O2 saturations 94% on 10 L. He has significant wheezes has been using his home albuterol inhaler. Just does not feel he can get a deep breath. Vitals/I&O Vitals/I&O: Vital Signs Date Time Temp Pulse Resp B/P (MAP) Pulse Ox O2 Delivery O2 Flow Rate FiO2 07/09/21 04:20 94 BiPAP/CPAP 07/09/21 03:00 97.5 55 20 169/80 (109) 10.0 97.5 I & O 07/08/21 07/08/21 07/09/21 15:00 23:00 07:00 Intake Total 720 ml Output Total 1000 ml 1350 ml 1000 ml Balance -280 ml -1350 ml -1000 ml Physical Exam General: Alert, Oriented X3, Cooperative Heart: Regular rate Abdomen: Normal bowel sounds Extremities: No clubbing Skin: No rashes, No significant lesion Assessment and Plan Assessmemt and Plan Problems Medical Problems: (1) Hyponatremia Status: Acute (2) Pneumonia due to COVID-19 virus Status: Acute (3) Respiratory failure with hypoxia Status: Acute Comment Review of Relevant I have reviewed the following items nadir (where applicable) has been applied. Medications: Current Medications Medications (Trade) Dose Ordered Sig/Zach Route PRN Reason Start Time Stop Time Status Last Admin Dose Admin Methylprednisolone Sodium Succinate (SOLU-Medrol 40MG VIAL) 40 mg Q8HRS IV 07/08/21 14:00 07/09/21 05:33 Lisinopril (Prinivil) 20 mg DAILY PO 07/09/21 00:30 07/09/21 00:20 Hydrochlorothiazide (Hydrodiuril) 25 mg DAILY PO 07/09/21 00:30 07/09/21 00:19 Justifications for Admission Other Justification COVID-19 positive test (U07.1, COVID-19) with Acute Pneumonia (J12.89, Other viral pneumonia) (If respiratory failure or sepsis present, add as separate assessment) RON TILLMAN MD Jul 09, 2021 07:47
--- NOTE | 2021-07-09 08:52 | PDOC ---
PULMONARY PROGRESS NOTES DATE: 07/09/21 TIME: 08:50 Subjective Remains on high flow cannula. slept well on bipap No paradoxical breathing or no increased respiratory distress. Vitals Vital Signs Date Time Temp Pulse Resp B/P (MAP) Pulse Ox O2 Delivery O2 Flow Rate FiO2 07/09/21 04:20 94 BiPAP/CPAP 07/09/21 03:00 97.5 55 20 169/80 (109) 10.0 97.5 Comments Visual exam done due to COVID-19. Patient is noted to be coughing. No obvious paradoxical breathing. Morbidly obese Trace leg edema Medications Active Scripts Medications Dose Route/Sig Max Daily Dose Days Date Category Folic Acid 0.8 Mg Capsule 1 Cap PO DAILY 30 07/03/21 Reported Omeprazole 40 Mg Capsule.dr 1 Cap PO DAILY 07/03/21 Reported Sulfasalazine 500 Mg Tablet 500 Mg PO EVERY 6 HRS 01/28/19 Reported Lisinopril-Hctz 20-25 Mg Tab (Lisinopril/Hydrochlorothiazide) 1 Each Tablet 1 Tab PO DAILY 12/11/16 Reported Flovent 220MCG Hfa (Fluticasone Propionate) 12 Gm Aer.w.adap 12 Gm IH BID 12/11/16 Reported Albuterol Sulfate Neb Soln (Albuterol Sulfate) 2.5 Mg/3 Ml Vial.neb 1 Vial NEB PRN Q4HRS 12/11/16 Reported Multi-Vitamin Daily (Multivitamin) 1 Each Tablet 1 Each PO DAILY 12/11/16 Reported Fish Oil 1,000 Mg Softgel ([place]-3/Dha/Epa/Fish Oil) 1 Each Capsule 1 Each PO DAILY 12/11/16 Reported Cetirizine Hcl 10 Mg Tab.chew 10 Mg PO DAILY 12/11/16 Reported Atorvastatin Calcium 80 Mg Tablet 80 Mg PO HS 12/11/16 Reported Omeprazole 40 Mg Capsule. 40 Mg PO DAILY 12/11/16 Reported Dicyclomine Hcl 10 Mg Capsule 10 Mg PO TID 12/11/16 Reported Aspir 81 (Aspirin) 81 Mg Tablet. 81 Mg PO DAILY 12/11/16 Reported Vitamin D (Cholecalciferol (Vitamin D3)) 1,000 Unit Capsule 1,000 Unit PO DAILY 12/11/16 Reported Impression . 1. Acute hypoxic respiratory failure in a patient who is morbidly obese, has COVID-19 viral pneumonia and has underlying tobaccoism. He is at high risk for worsening hypoxia and clinical deterioration. He also has been on sulfasalazine for ulcerative colitis. Currently, oxygen requirement is at 8 L 2. Abnormal chest x-ray with bilateral patchy interstitial infiltrates, consistent with COVID-19 viral pneumonia. 3. Underlying tobaccoism with suspected chronic obstructive pulmonary disease. 4. Underlying morbid obesity. Plan . 1. Continue to monitor respiratory status closely. Continue high flow oxygen at 10 L. 2. The patient was initiated on remdesivir and IV Solu-Medrol. 3. DVT prophylaxis with Lovenox. 4. No clinical suspicion for bacterial pneumonia. 5. Discussed with RN, discussed with the patient. 6. BiPAP at nighttime. He likely has underlying MARGARITA, untreated KAYLI ACUÑA MD Jul 09, 2021 08:52
[2021-07-09] MEDS: BENZONATATE 100 MG CAPSULE. PO SCH ×3 (10:35→21:33)
[2021-07-09] MEDS: ASPIRIN ENTERIC COATED 81 MG TABLET.DR. PO SCH (10:35)
[2021-07-09] MEDS: THIAMINE 100 MG TABLET. PO SCH (10:35)
[2021-07-09] MEDS: ASCORBIC ACID 1,000 MG TABLET PO SCH ×3 (10:36→21:32)
[2021-07-09] MEDS: DICYCLOMINE HCL 10 MG CAPSULE PO SCH ×3 (10:36→21:33)
[2021-07-09] MEDS: ZINC SULFATE 220 MG CAPSULE. PO SCH (10:36)
[2021-07-09] MEDS: ENOXAPARIN 40 MG/0.4 ML SYRINGE. SQ SCH ×2 (10:37→21:32)
[2021-07-09] MEDS: FOLIC ACID 1 MG TABLET. PO SCH (10:37)
--- NOTE | 2021-07-09 10:37 | NUR ---
SW following. Discussed with RN, pt from home, has finished Remdesivir however is still requiring significant oxygen at 10L. COVID-19 positive. RN advised no SW needs at this time. SW will continue to follow.
[2021-07-09 11:00] VITALS: BP 163/82
[2021-07-09 12:28] LABS: CALCIUM 8.5 mg/dL (8.5-10.1); GFR 77.9; POTASSIUM 4.2 mmol/L (3.5-5.1)
[2021-07-09] MEDS: FLUTICASONE/VILANTEROL 200/25 INHALER. INH SCH (14:11)
[2021-07-09 14:29] VITALS: BP 136/53
[2021-07-09 19:00] VITALS: BP 183/76
[2021-07-09] MEDS: INSULIN GLARGINE SYRINGE. SQ SCH (21:30)
[2021-07-09] MEDS: ATORVASTATIN CALCIUM 40 MG TABLET. PO SCH (21:32)
[2021-07-09 23:00] VITALS: BP 217/98
[2021-07-10] VITALS (7 sets, daily range): BP systolic 119–213; BP diastolic 41–84
[2021-07-10] MEDS: methylPREDNISolone SOD SUCC PF 40 MG/ML VIAL. IV SCH ×3 (06:11→21:54)
[2021-07-10] MEDS: BENZONATATE 100 MG CAPSULE. PO SCH ×3 (09:57→21:54)
[2021-07-10] MEDS: DICYCLOMINE HCL 10 MG CAPSULE PO SCH ×3 (09:57→21:54)
[2021-07-10] MEDS: hydroCHLOROthiazide 25 MG TABLET PO SCH (09:57)
[2021-07-10] MEDS: ASPIRIN ENTERIC COATED 81 MG TABLET.DR. PO SCH (09:57)
[2021-07-10] MEDS: THIAMINE 100 MG TABLET. PO SCH (09:57)
[2021-07-10] MEDS: ZINC SULFATE 220 MG CAPSULE. PO SCH (09:57)
[2021-07-10] MEDS: LISINOPRIL 20 MG TABLET PO SCH (09:58)
[2021-07-10] MEDS: ENOXAPARIN 40 MG/0.4 ML SYRINGE. SQ SCH ×2 (09:59→21:53)
[2021-07-10] MEDS: ASCORBIC ACID 1,000 MG TABLET PO SCH ×3 (09:59→21:54)
[2021-07-10] MEDS: FLUTICASONE/VILANTEROL 200/25 INHALER. INH SCH (10:00)
[2021-07-10] MEDS: FOLIC ACID 1 MG TABLET. PO SCH (10:01)
[2021-07-10] MEDS ORDERED: DEXTROSE 50% 25 GM / 50ML DISP.SYRIN. IV PRN (12:45)
--- NOTE | 2021-07-10 12:49 | PDOC ---
[facility] PROGRESS NOTE Date of Service DOS: DATE: 07/10/21 TIME: 12:47 Chief Complaint Chief Complaint Acute hypoxic respiratory failure COVID-19 pneumonia Elevated D-dimer Acute electrolyte derangement with hyponatremia, hypochloremia suggestive of acute volume depletion PRASANNA due to vasomotor nephropathy Moderate protein malnutrition History of ulcerative colitis Morbid obesity Wheezing - add breo inhaler 200mcg Hyperglycemia - checked A1c Admit to medicine for further management Pulmonology consult Continue IV thiamine and vitamin C IV 4 mg dexamethasone Daily Pending ferritin, LDH, CRP, D-dimer labs Titrate O2 supplementation to maintain O2 saturation greater than 92% Resume home ulcerative colitis medications Lovenox, consult pharmacy for dosing for DVT prophylaxis Protonix GI prophylaxis ADA diet Full code Discussed with RN and SW Disposition patient management as above Surrogate decision maker is the History of Present Illness History of Present Illness Mr Marcus is a 56 year old female with PMH of HTN, HLD, ulcerative colitis on sulfasalazine who presents with hypoxia in the setting of Covid. Was diagnosed on 06/26. He is unvaccinated. Over the past 4 days has had increasing shortness of breath. Does describe some burning chest pain. Has been constant for days. Not sharp or pleuritic. He has had fever/chills, cough, nausea, and diarrhea. Went to his PCP this morning was found to be hypoxic to 86-87% on room air. Improving with 2-4 L/min nasal cannula. 07/04/2021 No acute events overnight. Patient saturating 92% on 2 L nasal cannula. Will decrease his IV fluids to NS at 75 cc/h. Sodium improving and creatinine decreased from 1.6-1.2. Patient is still has prerenal azotemia. No concerns from nursing at this time. Patient's chart, labs, images were reviewed and discussed with RN 07/05/2021 No acute events overnight. Patient saturating 92% on 6 L nasal cannula. Will DC IV fluids. Continue with IV Remdesivir and IV steroids. Patient's chart, labs, images were reviewed and discussed with RN 07/06/2021 No acute events overnight. Patient saturating 93% on 10 L nasal cannula. Creatinine has improved and electrolytes have normalized. Continue with IV Remdesivir and steroids. Pulmonology following. Patient's chart, labs, images were reviewed and discussed with RN 07/07/2021 No acute events overnight. Patient saturating 96% on 10 L nasal cannula. Resting comfortably at bedside. Currently on Remdesivir and IV steroids. No concerns from nursing at this time. Patient's chart, labs, images were reviewed and d iscussed with RN 07/08/2021 No acute events overnight. Patient saturating 93% on 10 L nasal cannula. No accessory muscle use and no dyspnea during my interview. Patient's chart, labs, images were reviewed and discussed with RN 07/12: Afebrile overnight tolerated BiPAP well says he slept better. O2 saturations 94% on 10 L. He has significant wheezes has been using his home albuterol inhaler. Just does not feel he can get a deep breath. Afebrile. Tolerating BiPAP well overnight. Still says he cannot get a deep breath feels that may be the Breo inhaler is helping with his wheezing. Still on 10 L nasal cannula O2 saturations 90 to 94%. Vitals/I&O Vitals/I&O: Vital Signs Date Time Temp Pulse Resp B/P (MAP) Pulse Ox O2 Delivery O2 Flow Rate FiO2 07/10/21 09:58 51 132/61 07/10/21 08:01 94 Nasal Cannula 6.0 07/10/21 07:00 96.5 18 96.5 I & O 07/09/21 07/09/21 07/10/21 15:00 23:00 07:00 Intake Total 900 ml 240 ml Output Total 1700 ml 800 ml Balance -800 ml -560 ml Physical Exam General: Alert, Oriented X3, Cooperative Heart: Regular rate Abdomen: Normal bowel sounds Extremities: No clubbing Skin: No rashes, No significant lesion Assessment and Plan Assessmemt and Plan Problems Medical Problems: (1) Hyponatremia Status: Acute (2) Pneumonia due to COVID-19 virus Status: Acute (3) Respiratory failure with hypoxia Status: Acute Comment Review of Relevant I have reviewed the following items nadir (where applicable) has been applied. Justifications for Admission Other Justification COVID-19 positive test (U07.1, COVID-19) with Acute Pneumonia (J12.89, Other viral pneumonia) (If respiratory failure or sepsis present, add as separate assessment) RON TILLMAN MD Jul 10, 2021 12:49
--- NOTE | 2021-07-10 17:35 | NUR ---
Patients dinner blood sugar was 423, Dr. Tran was paged and RN received orders to give patient 14 units of Humalog X1 and recheck in 1 hour.
[2021-07-10] MEDS ORDERED: INSULIN LISPRO 300 UNITS/3 ML VIAL. SQ ONE ×2 (18:00→19:30)
--- NOTE | 2021-07-10 19:15 | NUR ---
Patients recheck blood sugar was 388. Dr. Tran was paged and this RN received orders to give 10 units of Humalog SQ X1 and to recheck in 1 hour. If blood sugar less pedro 350 use sliding scale if grated than 350 call him back for orders. Addendum: 07/10/21 at 1949 by VONDA SOLITARIO RN Night nurse Aileen was made aware of orders.
[2021-07-10] MEDS: INSULIN LISPRO 300 UNITS/3 ML VIAL. SQ SCH (21:30)
[2021-07-10] MEDS: ATORVASTATIN CALCIUM 40 MG TABLET. PO SCH (21:53)
[2021-07-11 03:00] VITALS: BP 182/93
[2021-07-11 03:25] LABS: HEMOGLOBIN A1C 6.8 % (4.8-5.6)
[2021-07-11] MEDS: methylPREDNISolone SOD SUCC PF 40 MG/ML VIAL. IV SCH ×3 (06:17→20:48)
[2021-07-11 07:00] VITALS: BP 164/77
--- NOTE | 2021-07-11 08:21 | PDOC ---
[facility] PROGRESS NOTE Date of Service DOS: DATE: 07/11/21 TIME: 08:20 Chief Complaint Chief Complaint Acute hypoxic respiratory failure COVID-19 pneumonia Elevated D-dimer Acute electrolyte derangement with hyponatremia, hypochloremia suggestive of acute volume depletion PRASANNA due to vasomotor nephropathy Moderate protein malnutrition History of ulcerative colitis Morbid obesity Wheezing - add breo inhaler 200mcg Hyperglycemia - A1c 6.8, discussed diabetes diagnosis Ulcerative colitis - on sulfasalazine outpatient Smoker - has stopped prior to admission, counseled Admit to medicine for further management Pulmonology consult Continue IV thiamine and vitamin C IV 4 mg dexamethasone Daily Pending ferritin, LDH, CRP, D-dimer labs Titrate O2 supplementation to maintain O2 saturation greater than 92% Resume home ulcerative colitis medications Lovenox, consult pharmacy for dosing for DVT prophylaxis Protonix GI prophylaxis ADA diet Full code Discussed with RN and SW Disposition patient management as above Surrogate decision maker is the History of Present Illness History of Present Illness Mr Marcus is a 56 year old female with PMH of HTN, HLD, ulcerative colitis on sulfasalazine who presents with hypoxia in the setting of Covid. Was diagnosed on 06/26. He is unvaccinated. Over the past 4 days has had increasing shortness of breath. Does describe some burning chest pain. Has been constant for days. Not sharp or pleuritic. He has had fever/chills, cough, nausea, and diarrhea. Went to his PCP this morning was found to be hypoxic to 86-87% on room air. Improving with 2-4 L/min nasal cannula. 07/04/2021 No acute events overnight. Patient saturating 92% on 2 L nasal cannula. Will decrease his IV fluids to NS at 75 cc/h. Sodium improving and creatinine decreased from 1.6-1.2. Patient is still has prerenal azotemia. No concerns from nursing at this time. Patient's chart, labs, images were reviewed and discussed with RN 07/05/2021 No acute events overnight. Patient saturating 92% on 6 L nasal cannula. Will DC IV fluids. Continue with IV Remdesivir and IV steroids. Patient's chart, labs, images were reviewed and discussed with RN 07/06/2021 No acute events overnight. Patient saturating 93% on 10 L nasal cannula. Creatinine has improved and electrolytes have normalized. Continue with IV Remdesivir and steroids. Pulmonology following. Patient's chart, labs, images were reviewed and discussed with RN 07/07/2021 No acute events overnight. Patient saturating 96% on 10 L nasal cannula. Resting comfortably at bedside. Currently on Remdesivir and IV steroids. No concerns from nursing at this time. Patient's chart, labs, images were reviewed and di scussed with RN 07/08/2021 No acute events overnight. Patient saturating 93% on 10 L nasal cannula. No accessory muscle use and no dyspnea during my interview. Patient's chart, labs, images were reviewed and discussed with RN 07/09: Afebrile overnight tolerated BiPAP well says he slept better. O2 saturations 94% on 10 L. He has significant wheezes has been using his home albuterol inhaler. Just does not feel he can get a deep breath. 07/10: Afebrile. Tolerating BiPAP well overnight. Still says he cannot get a deep breath feels that may be the Breo inhaler is helping with his wheezing. Still on 10 L nasal cannula O2 saturations 90 to 94%. Afebrile. A1c returned 6.8. Tolerated BiPAP well but still requiring 8 to 10 L nasal cannula during the day keep O2 saturation 94%. Repeat chest radiograph with increased interstitial opacities today. On further review he notes that he does have lower extremity edema which he had prior to this admission and has been checking his blood sugar at home. Still receiving IV steroids completed IV remdesivir. Vitals/I&O Vitals/I&O: Vital Signs Date Time Temp Pulse Resp B/P (MAP) Pulse Ox O2 Delivery O2 Flow Rate FiO2 07/11/21 07:00 97.0 47 20 164/77 (106) 92 BiPAP/CPAP 97.0 07/10/21 20:05 6.0 I & O 07/10/21 07/10/21 07/11/21 15:00 23:00 07:00 Intake Total 1250 ml 500 ml 420 ml Output Total 1000 ml 600 ml Balance 250 ml 500 ml -180 ml Physical Exam General: Alert, Oriented X3, Cooperative Heart: Regular rate Abdomen: Normal bowel sounds Extremities: No clubbing Skin: No rashes, No significant lesion Labs Labs: Laboratory Tests Test 07/10/21 17:12 07/10/21 19:06 07/10/21 21:40 07/11/21 07:13 Glucose (Fingerstick) 423 mg/dL (70-99) 388 mg/dL (70-99) 307 mg/dL (70-99) 252 mg/dL (70-99) Assessment and Plan Assessmemt and Plan Problems Medical Problems: (1) Hyponatremia Status: Acute (2) Pneumonia due to COVID-19 virus Status: Acute (3) Respiratory failure with hypoxia Status: Acute Comment Review of Relevant I have reviewed the following items nadir (where applicable) has been applied. Medications: Current Medications Medications (Trade) Dose Ordered Sig/Zach Route PRN Reason Start Time Stop Time Status Last Admin Dose Admin Insulin Glargine (Lantus Syringe) 12 unit QHS SQ 07/10/21 21:00 07/09/21 21:30 Insulin Human Lispro (HumaLOG) 0-9 UNITS TIDWMEALS SQ 07/10/21 17:00 07/10/21 21:30 Insulin Human Lispro (HumaLOG) 14 units 1X ONCE SQ 07/10/21 18:00 07/10/21 18:01 DC 07/10/21 17:48 Insulin Human Lispro (HumaLOG) 10 units 1X ONCE SQ 07/10/21 19:30 07/10/21 19:31 DC 07/10/21 21:30 Justifications for Admission Other Justification COVID-19 positive test (U07.1, COVID-19) with Acute Pneumonia (J12.89, Other viral pneumonia) (If respiratory failure or sepsis present, add as separate assessment) RON TILLMAN MD Jul 11, 2021 08:21
[2021-07-11] MEDS: ASCORBIC ACID 1,000 MG TABLET PO SCH ×4 (09:00→20:43)
[2021-07-11] MEDS: ASPIRIN ENTERIC COATED 81 MG TABLET.DR. PO SCH (09:04)
[2021-07-11] MEDS: ZINC SULFATE 220 MG CAPSULE. PO SCH (09:05)
[2021-07-11] MEDS: hydroCHLOROthiazide 25 MG TABLET PO SCH (09:05)
[2021-07-11] MEDS: FOLIC ACID 1 MG TABLET. PO SCH (09:05)
[2021-07-11] MEDS: LISINOPRIL 20 MG TABLET PO SCH ×2 (09:05→20:45)
[2021-07-11] MEDS: BENZONATATE 100 MG CAPSULE. PO SCH ×3 (09:05→20:43)
[2021-07-11] MEDS: DICYCLOMINE HCL 10 MG CAPSULE PO SCH ×3 (09:05→20:45)
[2021-07-11] MEDS: THIAMINE 100 MG TABLET. PO SCH (09:05)
[2021-07-11] MEDS: ENOXAPARIN 40 MG/0.4 ML SYRINGE. SQ SCH ×2 (09:05→20:43)
[2021-07-11] MEDS: FLUTICASONE/VILANTEROL 200/25 INHALER. INH SCH (09:07)
[2021-07-11] MEDS: INSULIN LISPRO 300 UNITS/3 ML VIAL. SQ SCH ×4 (09:07→17:15)
--- NOTE | 2021-07-11 09:47 | PDOC ---
PULMONARY PROGRESS NOTES DATE: 07/11/21 TIME: 09:46 Subjective Remains on high flow cannula. slept well on bipap No paradoxical breathing or no increased respiratory distress. Vitals Vital Signs Date Time Temp Pulse Resp B/P (MAP) Pulse Ox O2 Delivery O2 Flow Rate FiO2 07/11/21 09:05 47 164/77 07/11/21 07:00 97.0 20 92 BiPAP/CPAP 97.0 07/10/21 20:05 6.0 Comments Visual exam done due to COVID-19. Patient is noted to be coughing. No obvious paradoxical breathing. Morbidly obese Trace leg edema Labs Laboratory Tests Test 07/09/21 11:45 07/10/21 17:12 07/10/21 19:06 07/10/21 21:40 Sodium Level 138 mmol/L (136-145) Potassium Level 4.2 mmol/L (3.5-5.1) Chloride Level 100 mmol/L (98-107) Carbon Dioxide Level 36 mmol/L (21-32) Anion Gap 2 (6-14) Blood Urea Nitrogen 15 mg/dL (8-26) Creatinine 1.0 mg/dL (0.7-1.3) Estimated GFR (Cockcroft-Gault) 77.9 Glucose Level 306 mg/dL (70-99) Hemoglobin A1c 6.8 % (4.8-5.6) Calcium Level 8.5 mg/dL (8.5-10.1) Glucose (Fingerstick) 423 mg/dL (70-99) 388 mg/dL (70-99) 307 mg/dL (70-99) Test 07/11/21 07:13 Glucose (Fingerstick) 252 mg/dL (70-99) Laboratory Tests Test 07/10/21 17:12 07/10/21 19:06 07/10/21 21:40 07/11/21 07:13 Glucose (Fingerstick) 423 mg/dL (70-99) 388 mg/dL (70-99) 307 mg/dL (70-99) 252 mg/dL (70-99) Medications Active Scripts Medications Dose Route/Sig Max Daily Dose Days Date Category Folic Acid 0.8 Mg Capsule 1 Cap PO DAILY 30 07/03/21 Reported Omeprazole 40 Mg Capsule.dr 1 Cap PO DAILY 07/03/21 Reported Sulfasalazine 500 Mg Tablet 500 Mg PO EVERY 6 HRS 3/7/19 Reported Lisinopril-Hctz 20-25 Mg Tab (Lisinopril/Hydrochlorothiazide) 1 Each Tablet 1 Tab PO DAILY 12/11/16 Reported Flovent 220MCG Hfa (Fluticasone Propionate) 12 Gm Aer.w.adap 12 Gm IH BID 12/11/16 Reported Albuterol Sulfate Neb Soln (Albuterol Sulfate) 2.5 Mg/3 Ml Vial.neb 1 Vial NEB PRN Q4HRS 12/11/16 Reported Multi-Vitamin Daily (Multivitamin) 1 Each Tablet 1 Each PO DAILY 12/11/16 Reported Fish Oil 1,000 Mg Softgel ([place]-3/Dha/Epa/Fish Oil) 1 Each Capsule 1 Each PO DAILY 12/11/16 Reported Cetirizine Hcl 10 Mg Tab.chew 10 Mg PO DAILY 12/11/16 Reported Atorvastatin Calcium 80 Mg Tablet 80 Mg PO HS 12/11/16 Reported Omeprazole 40 Mg Capsule. 40 Mg PO DAILY 12/11/16 Reported Dicyclomine Hcl 10 Mg Capsule 10 Mg PO TID 12/11/16 Reported Aspir 81 (Aspirin) 81 Mg Tablet. 81 Mg PO DAILY 12/11/16 Reported Vitamin D (Cholecalciferol (Vitamin D3)) 1,000 Unit Capsule 1,000 Unit PO DAILY 12/11/16 Reported Impression . 1. Acute hypoxic respiratory failure in a patient who is morbidly obese, has COVID-19 viral pneumonia and has underlying tobaccoism. He is at high risk for worsening hypoxia and clinical deterioration. He also has been on sulfasalazine for ulcerative colitis. Currently, oxygen requirement is at 8 L 2. Abnormal chest x-ray with bilateral patchy interstitial infiltrates, consistent with COVID-19 viral pneumonia. 3. Underlying tobaccoism with suspected chronic obstructive pulmonary disease. 4. Underlying morbid obesity. Plan . 1. Continue to monitor respiratory status closely. Continue high flow oxygen at 8 to 10 L. 2. The patient was initiated on remdesivir and IV Solu-Medrol. Follow the prot ocol 3. DVT prophylaxis with Lovenox. 4. No clinical suspicion for bacterial pneumonia. 5. Discussed with RN, discussed with the patient. 6. BiPAP at nighttime. He likely has underlying MARGARITA, untreated Stable and slow improvement KAYLI ACUÑA MD Jul 11, 2021 09:47
[2021-07-11 11:00] VITALS: BP 174/75
[2021-07-11] MEDS ORDERED: INSULIN LISPRO 300 UNITS/3 ML VIAL. SQ ONE (12:15)
--- NOTE | 2021-07-11 12:25 | RAD ---
Single view of the chest. 07/11/2021 10:50 AM Indication: Covid pneumonia, failure to improve Comparison: Chest radiograph June 30, 2021 Findings: Lung volumes mildly decreased in the interim. Patchy interstitial alveolar infiltrates are increased. No pneumothorax. No definitive effusion. Heart size is similar. No acute osseous changes a re identified. IMPRESSION: Interval increase in bilateral interstitial alveolar infiltrates Electronically signed by: Barrera Carlos MD (07/11/2021 12:23 PM) [id number]
[2021-07-11 13:49] LABS: BASO % 0 % (0-3); EOS % 0 % (0-3); HEMOGLOBIN 14.4 g/dL (13.0-17.5); LYMPH # 0.5 x10^3/uL (1.0-4.8); LYMPH % 3 % (24-48); MEAN CORPUSCULAR HEMOGLOBIN 33 pg (25-35); MEAN CORPUSCULAR HGB CONC 34 g/dL (31-37); MEAN CORPUSCULAR VOLUME 96 fL (79-100); MONO # 0.7 x10^3/uL (0.0-1.1); MONO % 4 % (0-9); NEUT # 16.5 x10^3/uL (1.8-7.7); NEUT % 93 % (31-73); PLATELET COUNT 292 x10^3/uL (140-400); RED CELL DISTRIBUTION WIDTH 12.8 % (11.5-14.5); WHITE BLOOD COUNT 17.8 x10^3/uL (4.0-11.0)
--- NOTE | 2021-07-11 13:59 | NUR ---
SW following. Discussed with RN, pt from home, 6L (does not use oxygen at home), bipap at night. COVID-19 positive. SW will continue to follow.
[2021-07-11 14:17] LABS: CALCIUM 8.7 mg/dL (8.5-10.1); CREATININE 0.9 mg/dL (0.7-1.3); GFR 87.9; POTASSIUM 4.7 mmol/L (3.5-5.1)
[2021-07-11 14:35] LABS: % BANDS 3 % (0-9); % LYMPHS 2 % (24-48); % MONOS 6 % (0-10); % MYELOS 2 % (0-0); % SEGS 87 % (35-66); PLT ESTIMATE ADEQUATE (ADEQUATE)
[2021-07-11 15:00] VITALS: BP 157/89
[2021-07-11] MEDS ORDERED: hydrALAZINE 20 MG/ML VIAL. IVP PRN (15:45)
[2021-07-11] MEDS: FUROSEMIDE 40 MG/4 ML VIAL. IVP SCH (17:12)
[2021-07-11 19:00] VITALS: BP 131/69
[2021-07-11] MEDS: PSYLLIUM HUSK (SUGAR FREE) 1 PKT PACKET PO SCH (20:43)
[2021-07-11] MEDS: ATORVASTATIN CALCIUM 40 MG TABLET. PO SCH (20:45)
[2021-07-11] MEDS: INSULIN GLARGINE SYRINGE. SQ SCH (21:22)
[2021-07-11 23:00] VITALS: BP 123/76
[2021-07-12 03:00] VITALS: BP 132/77
[2021-07-12] MEDS: methylPREDNISolone SOD SUCC PF 40 MG/ML VIAL. IV SCH ×3 (06:43→22:00)
[2021-07-12 07:00] VITALS: BP 138/68
[2021-07-12] MEDS: FLUTICASONE/VILANTEROL 200/25 INHALER. INH SCH (08:43)
[2021-07-12] MEDS: FUROSEMIDE 40 MG/4 ML VIAL. IVP SCH (08:43)
[2021-07-12] MEDS: THIAMINE 100 MG TABLET. PO SCH (08:44)
[2021-07-12] MEDS: BENZONATATE 100 MG CAPSULE. PO SCH ×3 (08:44→21:00)
[2021-07-12] MEDS: FOLIC ACID 1 MG TABLET. PO SCH (08:44)
[2021-07-12] MEDS: DICYCLOMINE HCL 10 MG CAPSULE PO SCH ×3 (08:44→21:00)
[2021-07-12] MEDS: ASCORBIC ACID 1,000 MG TABLET PO SCH ×3 (08:44→21:00)
[2021-07-12] MEDS: ZINC SULFATE 220 MG CAPSULE. PO SCH (08:44)
[2021-07-12] MEDS: ASPIRIN ENTERIC COATED 81 MG TABLET.DR. PO SCH (08:44)
[2021-07-12] MEDS: LISINOPRIL 20 MG TABLET PO SCH ×2 (08:44→21:00)
[2021-07-12] MEDS: ENOXAPARIN 40 MG/0.4 ML SYRINGE. SQ SCH ×2 (08:45→21:00)
[2021-07-12] MEDS: INSULIN LISPRO 300 UNITS/3 ML VIAL. SQ SCH ×6 (08:46→17:33)
--- NOTE | 2021-07-12 10:39 | PDOC ---
[facility] [facility] PROGRESS NOTE Date of Service DOS: DATE: 07/12/21 TIME: 10:39 Chief Complaint Chief Complaint Acute hypoxic respiratory failure COVID-19 pneumonia Elevated D-dimer Acute electrolyte derangement with hyponatremia, hypochloremia suggestive of acute volume depletion PRASANNA due to vasomotor nephropathy Moderate protein malnutrition History of ulcerative colitis Morbid obesity Wheezing - add breo inhaler 200mcg Hyperglycemia - A1c 6.8, discussed diabetes diagnosis Ulcerative colitis - on sulfasalazine outpatient Smoker - has stopped prior to admission, counseled Admit to medicine for further management Pulmonology consult Continue IV thiamine and vitamin C IV 4 mg dexamethasone Daily Pending ferritin, LDH, CRP, D-dimer labs Titrate O2 supplementation to maintain O2 saturation greater than 92% Resume home ulcerative colitis medications Lovenox, consult pharmacy for dosing for DVT prophylaxis Protonix GI prophylaxis ADA diet Full code Discussed with RN and SW Disposition patient management as above Surrogate decision maker is the History of Present Illness History of Present Illness Mr Marcus is a 56 year old female with PMH of HTN, HLD, ulcerative colitis on sulfasalazine who presents with hypoxia in the setting of Covid. Was diagnosed on 06/26. He is unvaccinated. Over the past 4 days has had increasing shortness of breath. Does describe some burning chest pain. Has been constant for days. Not sharp or pleuritic. He has had fever/chills, cough, nausea, and diarrhea. Went to his PCP this morning was found to be hypoxic to 86-87% on room air. Improving with 2-4 L/min nasal cannula. 07/04/2021 No acute events overnight. Patient saturating 92% on 2 L nasal cannula. Will decrease his IV fluids to NS at 75 cc/h. Sodium improving and creatinine decreased from 1.6-1.2. Patient is still has prerenal azotemia. No concerns from nursing at this time. Patient's chart, labs, images were reviewed and discussed with RN 07/05/2021 No acute events overnight. Patient saturating 92% on 6 L nasal cannula. Will DC IV fluids. Continue with IV Remdesivir and IV steroids. Patient's chart, labs, images were reviewed and discussed with RN 07/06/2021 No acute events overnight. Patient saturating 93% on 10 L nasal cannula. Creatinine has improved and electrolytes have normalized. Continue with IV Remdesivir and steroids. Pulmonology following. Patient's chart, labs, images were reviewed and discussed with RN 07/07/2021 No acute events overnight. Patient saturating 96% on 10 L nasal cannula. Resting comfortably at bedside. Currently on Remdesivir and IV steroids. No concerns from nursing at this time. Patient's chart, labs, images were reviewed and di scussed with RN 07/08/2021 No acute events overnight. Patient saturating 93% on 10 L nasal cannula. No accessory muscle use and no dyspnea during my interview. Patient's chart, labs, images were reviewed and discussed with RN 07/09: Afebrile overnight tolerated BiPAP well says he slept better. O2 saturations 94% on 10 L. He has significant wheezes has been using his home albuterol inhaler. Just does not feel he can get a deep breath. 07/10: Afebrile. Tolerating BiPAP well overnight. Still says he cannot get a deep breath feels that may be the Breo inhaler is helping with his wheezing. Still on 10 L nasal cannula O2 saturations 90 to 94%. 07/11: Afebrile. A1c returned 6.8. Tolerated BiPAP well but still requiring 8 to 10 L nasal cannula during the day keep O2 saturation 94%. Repeat chest radiograph with increased interstitial opacities today. On further review he notes that he does have lower extremity edema which he had prior to this admission and has been checking his blood sugar at home. Still receiving IV steroids completed IV remdesivir. Afebrile. Down to 8 L nasal cannula oxygen. O2 saturations 92%. 800 cc urine output with Lasix IV. We will continue. Vitals/I&O Vitals/I&O: Vital Signs Date Time Temp Pulse Resp B/P (MAP) Pulse Ox O2 Delivery O2 Flow Rate FiO2 07/12/21 08:44 70 138/68 07/12/21 07:41 94 Nasal Cannula 6.0 07/12/21 07:00 97.9 18 97.9 I & O 07/11/21 07/11/21 07/12/21 15:00 23:00 07:00 Intake Total 480 ml 780 ml Output Total 1400 ml 1200 ml 2550 ml Balance -920 ml -1200 ml -1770 ml Physical Exam General: Alert, Oriented X3, Cooperative Heart: Regular rate Abdomen: Normal bowel sounds Extremities: No clubbing Skin: No rashes, No significant lesion Labs Labs: Laboratory Tests Test 07/11/21 11:44 07/11/21 13:35 07/11/21 16:55 07/11/21 21:17 Glucose (Fingerstick) 363 mg/dL (70-99) 319 mg/dL (70-99) 327 mg/dL (70-99) White Blood Count 17.8 x10^3/uL (4.0-11.0) Red Blood Count 4.40 x10^6/uL (4.30-5.70) Hemoglobin 14.4 g/dL (13.0-17.5) Hematocrit 42.0 % (39.0-53.0) Mean Corpuscular Volume 96 fL (79-100) Mean Corpuscular Hemoglobin 33 pg (25-35) Mean Corpuscular Hemoglobin Concent 34 g/dL (31-37) Red Cell Distribution Width 12.8 % (11.5-14.5) Platelet Count 292 x10^3/uL (140-400) Neutrophils (%) (Auto) 93 % (31-73) Lymphocytes (%) (Auto) 3 % (24-48) Monocytes (%) (Auto) 4 % (0-9) Eosinophils (%) (Auto) 0 % (0-3) Basophils (%) (Auto) 0 % (0-3) Neutrophils # (Auto) 16.5 x10^3/uL (1.8-7.7) Lymphocytes # (Auto) 0.5 x10^3/uL (1.0-4.8) Monocytes # (Auto) 0.7 x10^3/uL (0.0-1.1) Eosinophils # (Auto) 0.0 x10^3/uL (0.0-0.7) Basophils # (Auto) 0.0 x10^3/uL (0.0-0.2) Segmented Neutrophils % 87 % (35-66) Band Neutrophils % 3 % (0-9) Lymphocytes % 2 % (24-48) Monocytes % 6 % (0-10) Myelocytes % 2 % (0-0) Platelet Estimate Adequate (ADEQUATE) Sodium Level 137 mmol/L (136-145) Potassium Level 4.7 mmol/L (3.5-5.1) Chloride Level 96 mmol/L (98-107) Carbon Dioxide Level 37 mmol/L (21-32) Anion Gap 4 (6-14) Blood Urea Nitrogen 18 mg/dL (8-26) Creatinine 0.9 mg/dL (0.7-1.3) Estimated GFR (Cockcroft-Gault) 87.9 Glucose Level 344 mg/dL (70-99) Calcium Level 8.7 mg/dL (8.5-10.1) LL-Sxq-R-Type Natriuretic Peptide 774 pg/mL (0-124) Test 07/12/21 07:40 Glucose (Fingerstick) 281 mg/dL (70-99) Assessment and Plan Assessmemt and Plan Problems Medical Problems: (1) Hyponatremia Status: Acute (2) Pneumonia due to COVID-19 virus Status: Acute (3) Respiratory failure with hypoxia Status: Acute Comment Review of Relevant I have reviewed the following items nadir (where applicable) has been applied. Medications: Current Medications Medications (Trade) Dose Ordered Sig/Zach Route PRN Reason Start Time Stop Time Status Last Admin Dose Admin Insulin Human Lispro (HumaLOG) 14 units 1X ONCE SQ 07/11/21 12:15 07/11/21 12:16 DC 07/11/21 12:31 Insulin Human Lispro (HumaLOG) 5 units TIDAC SQ 07/11/21 16:30 07/12/21 08:46 Lisinopril (Prinivil) 40 mg BID PO 07/11/21 21:00 07/12/21 08:44 Furosemide (Lasix) 40 mg DAILY IVP 07/11/21 16:30 07/12/21 08:43 Psyllium Hydrophilic Mucilloid (Metamucil Fiber Packet) 1 pkt QHS PO 07/11/21 21:00 07/11/21 20:43 Justifications for Admission Other Justification COVID-19 positive test (U07.1, COVID-19) with Acute Pneumonia (J12.89, Other viral pneumonia) (If respiratory failure or sepsis present, add as separate assessment) RON TILLMAN MD Jul 12, 2021 10:39
[2021-07-12 11:00] VITALS: BP 125/62
[2021-07-12 11:59] LABS: BASO # 0.1 x10^3/uL (0.0-0.2); BASO % 0 % (0-3); EOS % 0 % (0-3); HEMATOCRIT 42.8 % (39.0-53.0); HEMOGLOBIN 14.2 g/dL (13.0-17.5); LYMPH # 0.5 x10^3/uL (1.0-4.8); LYMPH % 2 % (24-48); MEAN CORPUSCULAR HEMOGLOBIN 32 pg (25-35); MEAN CORPUSCULAR HGB CONC 33 g/dL (31-37); MEAN CORPUSCULAR VOLUME 95 fL (79-100); MONO % 5 % (0-9); NEUT # 18.4 x10^3/uL (1.8-7.7); NEUT % 92 % (31-73); PLATELET COUNT 297 x10^3/uL (140-400); RED CELL DISTRIBUTION WIDTH 13.1 % (11.5-14.5); WHITE BLOOD COUNT 19.9 x10^3/uL (4.0-11.0)
[2021-07-12 12:10] LABS: CREATININE 0.9 mg/dL (0.7-1.3); GFR 87.9; MAGNESIUM 2.2 mg/dL (1.8-2.4); POTASSIUM 4.6 mmol/L (3.5-5.1)
[2021-07-12 15:00] VITALS: BP 124/74
[2021-07-12 19:00] VITALS: BP 125/74
[2021-07-12] MEDS: INSULIN GLARGINE SYRINGE. SQ SCH (21:00)
[2021-07-12] MEDS: ATORVASTATIN CALCIUM 40 MG TABLET. PO SCH (21:00)
[2021-07-12] MEDS: PSYLLIUM HUSK (SUGAR FREE) 1 PKT PACKET PO SCH (21:00)
[2021-07-12 23:00] VITALS: BP 131/72
[2021-07-13 03:00] VITALS: BP 124/67
[2021-07-13] MEDS: methylPREDNISolone SOD SUCC PF 40 MG/ML VIAL. IV SCH ×2 (06:25→21:01)
[2021-07-13 07:00] VITALS: BP_SYST 106; BP_SYST 133; BP_DIAS 57; BP_DIAS 60
[2021-07-13 08:04] LABS: BASO % 0 % (0-3); EOS % 0 % (0-3); HEMATOCRIT 39.9 % (39.0-53.0); HEMOGLOBIN 13.8 g/dL (13.0-17.5); LYMPH # 0.5 x10^3/uL (1.0-4.8); LYMPH % 3 % (24-48); MEAN CORPUSCULAR HEMOGLOBIN 33 pg (25-35); MEAN CORPUSCULAR HGB CONC 35 g/dL (31-37); MEAN CORPUSCULAR VOLUME 95 fL (79-100); MONO # 0.8 x10^3/uL (0.0-1.1); MONO % 4 % (0-9); NEUT # 15.8 x10^3/uL (1.8-7.7); NEUT % 93 % (31-73); PLATELET COUNT 259 x10^3/uL (140-400); RED BLOOD COUNT 4.19 x10^6/uL (4.30-5.70); RED CELL DISTRIBUTION WIDTH 12.7 % (11.5-14.5); WHITE BLOOD COUNT 17.1 x10^3/uL (4.0-11.0)
[2021-07-13 08:07] LABS: CALCIUM 8.4 mg/dL (8.5-10.1); GFR 77.9
--- NOTE | 2021-07-13 08:30 | PDOC ---
[facility] [facility] PROGRESS NOTE Date of Service DOS: DATE: 07/13/21 TIME: 08:28 Chief Complaint Chief Complaint Acute hypoxic respiratory failure COVID-19 pneumonia Elevated D-dimer Acute electrolyte derangement with hyponatremia, hypochloremia suggestive of acute volume depletion PRASANNA due to vasomotor nephropathy Moderate protein malnutrition History of ulcerative colitis Morbid obesity Wheezing - add breo inhaler 200mcg Hyperglycemia - A1c 6.8, discussed diabetes diagnosis Ulcerative colitis - on sulfasalazine outpatient Smoker - has stopped prior to admission, counseled Admit to medicine for further management Pulmonology consult Continue IV thiamine and vitamin C IV 4 mg dexamethasone Daily Pending ferritin, LDH, CRP, D-dimer labs Titrate O2 supplementation to maintain O2 saturation greater than 92% Resume home ulcerative colitis medications Lovenox, consult pharmacy for dosing for DVT prophylaxis Protonix GI prophylaxis ADA diet Full code Discussed with RN and SW Disposition patient management as above Surrogate decision maker is the History of Present Illness History of Present Illness Mr Marcus is a 56 year old female with PMH of HTN, HLD, ulcerative colitis on sulfasalazine who presents with hypoxia in the setting of Covid. Was diagnosed on 06/26. He is unvaccinated. Over the past 4 days has had increasing shortness of breath. Does describe some burning chest pain. Has been constant for days. Not sharp or pleuritic. He has had fever/chills, cough, nausea, and diarrhea. Went to his PCP this morning was found to be hypoxic to 86-87% on room air. Improving with 2-4 L/min nasal cannula. 07/04/2021 No acute events overnight. Patient saturating 92% on 2 L nasal cannula. Will decrease his IV fluids to NS at 75 cc/h. Sodium improving and creatinine decreased from 1.6-1.2. Patient is still has prerenal azotemia. No concerns from nursing at this time. Patient's chart, labs, images were reviewed and discussed with RN 07/05/2021 No acute events overnight. Patient saturating 92% on 6 L nasal cannula. Will DC IV fluids. Continue with IV Remdesivir and IV steroids. Patient's chart, labs, images were reviewed and discussed with RN 07/06/2021 No acute events overnight. Patient saturating 93% on 10 L nasal cannula. Creatinine has improved and electrolytes have normalized. Continue with IV Remdesivir and steroids. Pulmonology following. Patient's chart, labs, images were reviewed and discussed with RN 07/07/2021 No acute events overnight. Patient saturating 96% on 10 L nasal cannula. Resting comfortably at bedside. Currently on Remdesivir and IV steroids. No concerns from nursing at this time. Patient's chart, labs, images were reviewed and di scussed with RN 07/08/2021 No acute events overnight. Patient saturating 93% on 10 L nasal cannula. No accessory muscle use and no dyspnea during my interview. Patient's chart, labs, images were reviewed and discussed with RN 07/09: Afebrile overnight tolerated BiPAP well says he slept better. O2 saturations 94% on 10 L. He has significant wheezes has been using his home albuterol inhaler. Just does not feel he can get a deep breath. 07/10: Afebrile. Tolerating BiPAP well overnight. Still says he cannot get a deep breath feels that may be the Breo inhaler is helping with his wheezing. Still on 10 L nasal cannula O2 saturations 90 to 94%. 07/11: Afebrile. A1c returned 6.8. Tolerated BiPAP well but still requiring 8 to 10 L nasal cannula during the day keep O2 saturation 94%. Repeat chest radiograph with increased interstitial opacities today. On further review he notes that he does have lower extremity edema which he had prior to this admission and has been checking his blood sugar at home. Still receiving IV steroids completed IV remdesivir. 07/12: Afebrile. Down to 8 L nasal cannula oxygen. O2 saturations 92%. 5100 cc urine output with Lasix IV. We will continue. Afebrile. 4450cc UOP past 24 hours. Feels like his breathing is a little better. Some indigestion. Labs stable. Glucose elevated. Vitals/I&O Vitals/I&O: Vital Signs Date Time Temp Pulse Resp B/P (MAP) Pulse Ox O2 Delivery O2 Flow Rate FiO2 07/13/21 03:16 97 BiPAP/CPAP 07/13/21 03:00 97.8 49 18 124/67 (86) 97.8 07/12/21 20:00 10.0 I & O 07/12/21 07/12/21 07/13/21 15:00 23:00 07:00 Intake Total 960 ml 1400 ml Output Total 650 ml 1000 ml 2800 ml Balance -650 ml -40 ml -1400 ml Physical Exam General: Alert, Oriented X3, Cooperative Heart: Regular rate Abdomen: Normal bowel sounds Extremities: No clubbing Skin: No rashes, No significant lesion Labs Labs: Laboratory Tests Test 07/12/21 11:30 07/12/21 11:40 07/12/21 11:56 07/12/21 17:01 Sodium Level 136 mmol/L (136-145) Potassium Level 4.6 mmol/L (3.5-5.1) Chloride Level 95 mmol/L (98-107) Carbon Dioxide Level 36 mmol/L (21-32) Anion Gap 5 (6-14) Blood Urea Nitrogen 23 mg/dL (8-26) Creatinine 0.9 mg/dL (0.7-1.3) Estimated GFR (Cockcroft-Gault) 87.9 Glucose Level 308 mg/dL (70-99) Calcium Level 9.0 mg/dL (8.5-10.1) Magnesium Level 2.2 mg/dL (1.8-2.4) White Blood Count 19.9 x10^3/uL (4.0-11.0) Red Blood Count 4.50 x10^6/uL (4.30-5.70) Hemoglobin 14.2 g/dL (13.0-17.5) Hematocrit 42.8 % (39.0-53.0) Mean Corpuscular Volume 95 fL (79-100) Mean Corpuscular Hemoglobin 32 pg (25-35) Mean Corpuscular Hemoglobin Concent 33 g/dL (31-37) Red Cell Distribution Width 13.1 % (11.5-14.5) Platelet Count 297 x10^3/uL (140-400) Neutrophils (%) (Auto) 92 % (31-73) Lymphocytes (%) (Auto) 2 % (24-48) Monocytes (%) (Auto) 5 % (0-9) Eosinophils (%) (Auto) 0 % (0-3) Basophils (%) (Auto) 0 % (0-3) Neutrophils # (Auto) 18.4 x10^3/uL (1.8-7.7) Lymphocytes # (Auto) 0.5 x10^3/uL (1.0-4.8) Monocytes # (Auto) 1.0 x10^3/uL (0.0-1.1) Eosinophils # (Auto) 0.0 x10^3/uL (0.0-0.7) Basophils # (Auto) 0.1 x10^3/uL (0.0-0.2) Procalcitonin ng/mL (0.00-0.10) Glucose (Fingerstick) 275 mg/dL (70-99) 262 mg/dL (70-99) Test 07/12/21 20:50 07/13/21 07:25 07/13/21 07:31 Glucose (Fingerstick) 265 mg/dL (70-99) 340 mg/dL (70-99) White Blood Count 17.1 x10^3/uL (4.0-11.0) Red Blood Count 4.19 x10^6/uL (4.30-5.70) Hemoglobin 13.8 g/dL (13.0-17.5) Hematocrit 39.9 % (39.0-53.0) Mean Corpuscular Volume 95 fL (79-100) Mean Corpuscular Hemoglobin 33 pg (25-35) Mean Corpuscular Hemoglobin Concent 35 g/dL (31-37) Red Cell Distribution Width 12.7 % (11.5-14.5) Platelet Count 259 x10^3/uL (140-400) Neutrophils (%) (Auto) 93 % (31-73) Lymphocytes (%) (Auto) 3 % (24-48) Monocytes (%) (Auto) 4 % (0-9) Eosinophils (%) (Auto) 0 % (0-3) Basophils (%) (Auto) 0 % (0-3) Neutrophils # (Auto) 15.8 x10^3/uL (1.8-7.7) Lymphocytes # (Auto) 0.5 x10^3/uL (1.0-4.8) Monocytes # (Auto) 0.8 x10^3/uL (0.0-1.1) Eosinophils # (Auto) 0.0 x10^3/uL (0.0-0.7) Basophils # (Auto) 0.0 x10^3/uL (0.0-0.2) Sodium Level 135 mmol/L (136-145) Potassium Level 5.0 mmol/L (3.5-5.1) Chloride Level 95 mmol/L (98-107) Carbon Dioxide Level 36 mmol/L (21-32) Anion Gap 4 (6-14) Blood Urea Nitrogen 23 mg/dL (8-26) Creatinine 1.0 mg/dL (0.7-1.3) Estimated GFR (Cockcroft-Gault) 77.9 Glucose Level 321 mg/dL (70-99) Calcium Level 8.4 mg/dL (8.5-10.1) Assessment and Plan Assessmemt and Plan Problems Medical Problems: (1) Hyponatremia Status: Acute (2) Pneumonia due to COVID-19 virus Status: Acute (3) Respiratory failure with hypoxia Status: Acute Comment Review of Relevant I have reviewed the following items nadir (where applicable) has been applied. Justifications for Admission Other Justification COVID-19 positive test (U07.1, COVID-19) with Acute Pneumonia (J12.89, Other viral pneumonia) (If respiratory failure or sepsis present, add as separate assessment) RON TILLMAN MD Jul 13, 2021 08:30
[2021-07-13] MEDS: LISINOPRIL 20 MG TABLET PO SCH ×2 (08:34→21:02)
[2021-07-13] MEDS: FUROSEMIDE 40 MG/4 ML VIAL. IVP SCH (08:34)
[2021-07-13] MEDS: ENOXAPARIN 40 MG/0.4 ML SYRINGE. SQ SCH ×2 (08:34→21:03)
[2021-07-13] MEDS: INSULIN LISPRO 300 UNITS/3 ML VIAL. SQ SCH ×6 (08:35→17:45)
[2021-07-13] MEDS: ZINC SULFATE 220 MG CAPSULE. PO SCH (08:36)
[2021-07-13] MEDS: ASPIRIN ENTERIC COATED 81 MG TABLET.DR. PO SCH (08:36)
[2021-07-13] MEDS: FOLIC ACID 1 MG TABLET. PO SCH (08:36)
[2021-07-13] MEDS: DICYCLOMINE HCL 10 MG CAPSULE PO SCH ×3 (08:36→21:02)
[2021-07-13] MEDS: THIAMINE 100 MG TABLET. PO SCH (08:36)
[2021-07-13] MEDS: BENZONATATE 100 MG CAPSULE. PO SCH ×3 (08:36→21:01)
[2021-07-13] MEDS: ASCORBIC ACID 1,000 MG TABLET PO SCH ×3 (08:36→21:01)
[2021-07-13] MEDS: metFORMIN 500 MG TABLET PO SCH ×2 (08:38→17:39)
[2021-07-13] MEDS: FLUTICASONE/VILANTEROL 200/25 INHALER. INH SCH (08:38)
[2021-07-13] MEDS: METOPROLOL SUCC 24HR ER 25 MG TAB.ER.24H. PO SCH (08:39)
--- NOTE | 2021-07-13 10:06 | PDOC ---
PULMONARY PROGRESS NOTES DATE: 07/13/21 TIME: 10:05 Subjective Remains on high flow cannula. slept well on bipap No paradoxical breathing or no increased respiratory distress. Vitals Vital Signs Date Time Temp Pulse Resp B/P (MAP) Pulse Ox O2 Delivery O2 Flow Rate FiO2 07/13/21 08:39 49 124/67 07/13/21 07:00 98.6 20 95 98.6 07/13/21 03:16 BiPAP/CPAP 07/12/21 20:00 10.0 Comments Visual exam done due to COVID-19. Patient is noted to be coughing. No obvious paradoxical breathing. Morbidly obese Trace leg edema Labs Laboratory Tests Test 07/11/21 11:44 07/11/21 13:35 07/11/21 16:55 07/11/21 21:17 Glucose (Fingerstick) 363 mg/dL (70-99) 319 mg/dL (70-99) 327 mg/dL (70-99) White Blood Count 17.8 x10^3/uL (4.0-11.0) Red Blood Count 4.40 x10^6/uL (4.30-5.70) Hemoglobin 14.4 g/dL (13.0-17.5) Hematocrit 42.0 % (39.0-53.0) Mean Corpuscular Volume 96 fL (79-100) Mean Corpuscular Hemoglobin 33 pg (25-35) Mean Corpuscular Hemoglobin Concent 34 g/dL (31-37) Red Cell Distribution Width 12.8 % (11.5-14.5) Platelet Count 292 x10^3/uL (140-400) Neutrophils (%) (Auto) 93 % (31-73) Lymphocytes (%) (Auto) 3 % (24-48) Monocytes (%) (Auto) 4 % (0-9) Eosinophils (%) (Auto) 0 % (0-3) Basophils (%) (Auto) 0 % (0-3) Neutrophils # (Auto) 16.5 x10^3/uL (1.8-7.7) Lymphocytes # (Auto) 0.5 x10^3/uL (1.0-4.8) Monocytes # (Auto) 0.7 x10^3/uL (0.0-1.1) Eosinophils # (Auto) 0.0 x10^3/uL (0.0-0.7) Basophils # (Auto) 0.0 x10^3/uL (0.0-0.2) Segmented Neutrophils % 87 % (35-66) Band Neutrophils % 3 % (0-9) Lymphocytes % 2 % (24-48) Monocytes % 6 % (0-10) Myelocytes % 2 % (0-0) Platelet Estimate Adequate (ADEQUATE) Sodium Level 137 mmol/L (136-145) Potassium Level 4.7 mmol/L (3.5-5.1) Chloride Level 96 mmol/L (98-107) Carbon Dioxide Level 37 mmol/L (21-32) Anion Gap 4 (6-14) Blood Urea Nitrogen 18 mg/dL (8-26) Creatinine 0.9 mg/dL (0.7-1.3) Estimated GFR (Cockcroft-Gault) 87.9 Glucose Level 344 mg/dL (70-99) Calcium Level 8.7 mg/dL (8.5-10.1) WR-Rng-B-Type Natriuretic Peptide 774 pg/mL (0-124) Test 07/12/21 07:40 07/12/21 11:30 07/12/21 11:40 07/12/21 11:56 Glucose (Fingerstick) 281 mg/dL (70-99) 275 mg/dL (70-99) Sodium Level 136 mmol/L (136-145) Potassium Level 4.6 mmol/L (3.5-5.1) Chloride Level 95 mmol/L (98-107) Carbon Dioxide Level 36 mmol/L (21-32) Anion Gap 5 (6-14) Blood Urea Nitrogen 23 mg/dL (8-26) Creatinine 0.9 mg/dL (0.7-1.3) Estimated GFR (Cockcroft-Gault) 87.9 Glucose Level 308 mg/dL (70-99) Calcium Level 9.0 mg/dL (8.5-10.1) Magnesium Level 2.2 mg/dL (1.8-2.4) White Blood Count 19.9 x10^3/uL (4.0-11.0) Red Blood Count 4.50 x10^6/uL (4.30-5.70) Hemoglobin 14.2 g/dL (13.0-17.5) Hematocrit 42.8 % (39.0-53.0) Mean Corpuscular Volume 95 fL (79-100) Mean Corpuscular Hemoglobin 32 pg (25-35) Mean Corpuscular Hemoglobin Concent 33 g/dL (31-37) Red Cell Distribution Width 13.1 % (11.5-14.5) Platelet Count 297 x10^3/uL (140-400) Neutrophils (%) (Auto) 92 % (31-73) Lymphocytes (%) (Auto) 2 % (24-48) Monocytes (%) (Auto) 5 % (0-9) Eosinophils (%) (Auto) 0 % (0-3) Basophils (%) (Auto) 0 % (0-3) Neutrophils # (Auto) 18.4 x10^3/uL (1.8-7.7) Lymphocytes # (Auto) 0.5 x10^3/uL (1.0-4.8) Monocytes # (Auto) 1.0 x10^3/uL (0.0-1.1) Eosinophils # (Auto) 0.0 x10^3/uL (0.0-0.7) Basophils # (Auto) 0.1 x10^3/uL (0.0-0.2) Procalcitonin ng/mL (0.00-0.10) Test 07/12/21 17:01 07/12/21 20:50 07/13/21 07:25 07/13/21 07:31 Glucose (Fingerstick) 262 mg/dL (70-99) 265 mg/dL (70-99) 340 mg/dL (70-99) White Blood Count 17.1 x10^3/uL (4.0-11.0) Red Blood Count 4.19 x10^6/uL (4.30-5.70) Hemoglobin 13.8 g/dL (13.0-17.5) Hematocrit 39.9 % (39.0-53.0) Mean Corpuscular Volume 95 fL (79-100) Mean Corpuscular Hemoglobin 33 pg (25-35) Mean Corpuscular Hemoglobin Concent 35 g/dL (31-37) Red Cell Distribution Width 12.7 % (11.5-14.5) Platelet Count 259 x10^3/uL (140-400) Neutrophils (%) (Auto) 93 % (31-73) Lymphocytes (%) (Auto) 3 % (24-48) Monocytes (%) (Auto) 4 % (0-9) Eosinophils (%) (Auto) 0 % (0-3) Basophils (%) (Auto) 0 % (0-3) Neutrophils # (Auto) 15.8 x10^3/uL (1.8-7.7) Lymphocytes # (Auto) 0.5 x10^3/uL (1.0-4.8) Monocytes # (Auto) 0.8 x10^3/uL (0.0-1.1) Eosinophils # (Auto) 0.0 x10^3/uL (0.0-0.7) Basophils # (Auto) 0.0 x10^3/uL (0.0-0.2) Sodium Level 135 mmol/L (136-145) Potassium Level 5.0 mmol/L (3.5-5.1) Chloride Level 95 mmol/L (98-107) Carbon Dioxide Level 36 mmol/L (21-32) Anion Gap 4 (6-14) Blood Urea Nitrogen 23 mg/dL (8-26) Creatinine 1.0 mg/dL (0.7-1.3) Estimated GFR (Cockcroft-Gault) 77.9 Glucose Level 321 mg/dL (70-99) Calcium Level 8.4 mg/dL (8.5-10.1) Laboratory Tests Test 07/12/21 11:30 07/12/21 11:40 07/12/21 11:56 07/12/21 17:01 Sodium Level 136 mmol/L (136-145) Potassium Level 4.6 mmol/L (3.5-5.1) Chloride Level 95 mmol/L (98-107) Carbon Dioxide Level 36 mmol/L (21-32) Anion Gap 5 (6-14) Blood Urea Nitrogen 23 mg/dL (8-26) Creatinine 0.9 mg/dL (0.7-1.3) Estimated GFR (Cockcroft-Gault) 87.9 Glucose Level 308 mg/dL (70-99) Calcium Level 9.0 mg/dL (8.5-10.1) Magnesium Level 2.2 mg/dL (1.8-2.4) White Blood Count 19.9 x10^3/uL (4.0-11.0) Red Blood Count 4.50 x10^6/uL (4.30-5.70) Hemoglobin 14.2 g/dL (13.0-17.5) Hematocrit 42.8 % (39.0-53.0) Mean Corpuscular Volume 95 fL (79-100) Mean Corpuscular Hemoglobin 32 pg (25-35) Mean Corpuscular Hemoglobin Concent 33 g/dL (31-37) Red Cell Distribution Width 13.1 % (11.5-14.5) Platelet Count 297 x10^3/uL (140-400) Neutrophils (%) (Auto) 92 % (31-73) Lymphocytes (%) (Auto) 2 % (24-48) Monocytes (%) (Auto) 5 % (0-9) Eosinophils (%) (Auto) 0 % (0-3) Basophils (%) (Auto) 0 % (0-3) Neutrophils # (Auto) 18.4 x10^3/uL (1.8-7.7) Lymphocytes # (Auto) 0.5 x10^3/uL (1.0-4.8) Monocytes # (Auto) 1.0 x10^3/uL (0.0-1.1) Eosinophils # (Auto) 0.0 x10^3/uL (0.0-0.7) Basophils # (Auto) 0.1 x10^3/uL (0.0-0.2) Procalcitonin ng/mL (0.00-0.10) Glucose (Fingerstick) 275 mg/dL (70-99) 262 mg/dL (70-99) Test 07/12/21 20:50 07/13/21 07:25 07/13/21 07:31 Glucose (Fingerstick) 265 mg/dL (70-99) 340 mg/dL (70-99) White Blood Count 17.1 x10^3/uL (4.0-11.0) Red Blood Count 4.19 x10^6/uL (4.30-5.70) Hemoglobin 13.8 g/dL (13.0-17.5) Hematocrit 39.9 % (39.0-53.0) Mean Corpuscular Volume 95 fL (79-100) Mean Corpuscular Hemoglobin 33 pg (25-35) Mean Corpuscular Hemoglobin Concent 35 g/dL (31-37) Red Cell Distribution Width 12.7 % (11.5-14.5) Platelet Count 259 x10^3/uL (140-400) Neutrophils (%) (Auto) 93 % (31-73) Lymphocytes (%) (Auto) 3 % (24-48) Monocytes (%) (Auto) 4 % (0-9) Eosinophils (%) (Auto) 0 % (0-3) Basophils (%) (Auto) 0 % (0-3) Neutrophils # (Auto) 15.8 x10^3/uL (1.8-7.7) Lymphocytes # (Auto) 0.5 x10^3/uL (1.0-4.8) Monocytes # (Auto) 0.8 x10^3/uL (0.0-1.1) Eosinophils # (Auto) 0.0 x10^3/uL (0.0-0.7) Basophils # (Auto) 0.0 x10^3/uL (0.0-0.2) Sodium Level 135 mmol/L (136-145) Potassium Level 5.0 mmol/L (3.5-5.1) Chloride Level 95 mmol/L (98-107) Carbon Dioxide Level 36 mmol/L (21-32) Anion Gap 4 (6-14) Blood Urea Nitrogen 23 mg/dL (8-26) Creatinine 1.0 mg/dL (0.7-1.3) Estimated GFR (Cockcroft-Gault) 77.9 Glucose Level 321 mg/dL (70-99) Calcium Level 8.4 mg/dL (8.5-10.1) Medications Active Scripts Medications Dose Route/Sig Max Daily Dose Days Date Category Folic Acid 0.8 Mg Capsule 1 Cap PO DAILY 30 07/03/21 Reported Omeprazole 40 Mg Capsule.dr 1 Cap PO DAILY 07/03/21 Reported Sulfasalazine 500 Mg Tablet 500 Mg PO EVERY 6 HRS 01/28/19 Reported Lisinopril-Hctz 20-25 Mg Tab (Lisinopril/Hydrochlorothiazide) 1 Each Tablet 1 Tab PO DAILY 12/11/16 Reported Flovent 220MCG Hfa (Fluticasone Propionate) 12 Gm Aer.w.adap 12 Gm IH BID 12/11/16 Reported Albuterol Sulfate Neb Soln (Albuterol Sulfate) 2.5 Mg/3 Ml Vial.neb 1 Vial NEB PRN Q4HRS 12/11/16 Reported Multi-Vitamin Daily (Multivitamin) 1 Each Tablet 1 Each PO DAILY 12/11/16 Reported Fish Oil 1,000 Mg Softgel ([place]-3/Dha/Epa/Fish Oil) 1 Each Capsule 1 Each PO DAILY 12/11/16 Reported Cetirizine Hcl 10 Mg Tab.chew 10 Mg PO DAILY 12/11/16 Reported Atorvastatin Calcium 80 Mg Tablet 80 Mg PO HS 12/11/16 Reported Omeprazole 40 Mg Capsule. 40 Mg PO DAILY 12/11/16 Reported Dicyclomine Hcl 10 Mg Capsule 10 Mg PO TID 12/11/16 Reported Aspir 81 (Aspirin) 81 Mg Tablet. 81 Mg PO DAILY 12/11/16 Reported Vitamin D (Cholecalciferol (Vitamin D3)) 1,000 Unit Capsule 1,000 Unit PO DAILY 12/11/16 Reported Impression . 1. Acute hypoxic respiratory failure in a patient who is morbidly obese, has COVID-19 viral pneumonia and has underlying tobaccoism. He is at high risk for worsening hypoxia and clinical deterioration. He also has been on sulfasalazine for ulcerative colitis. Currently, oxygen requirement is at 10 L 2. Abnormal chest x-ray with bilateral patchy interstitial infiltrates, consistent with COVID-19 viral pneumonia. 3. Underlying tobaccoism with suspected chronic obstructive pulmonary disease. 4. Underlying morbid obesity. Plan . 1. Continue to monitor respiratory status closely. Continue high flow oxygen at 8 to 10 L. 2. The patient was initiated on remdesivir and IV Solu-Medrol. Follow the protocol 3. DVT prophylaxis with Lovenox. 4. No clinical suspicion for bacterial pneumonia. 5. Discussed with RN, discussed with the patient. 6. BiPAP at nighttime. He likely has underlying MARGARITA, untreated Stable and slow improvement. Discussed with RN KAYLI ACUÑA MD Jul 13, 2021 10:06
[2021-07-13 11:00] VITALS: BP 140/81
--- NOTE | 2021-07-13 11:33 | NUR ---
SW following. Discussed with RN, pt from home, COVID-19 positive, requiring 10L oxygen. Pt ad bruno in room. SW will continue to follow.
[2021-07-13] MEDS: MAG HYDROX/ALUMINUM HYD/SIMETH 30 ML ORAL.SUSP PO PRN ×2 (11:37→21:20)
[2021-07-13] MEDS: ALBUTEROL SULFATE 8GM INHALER. INH PRN (12:35)
[2021-07-13 15:00] VITALS: BP 135/96
[2021-07-13 19:00] VITALS: BP 120/57
[2021-07-13] MEDS: INSULIN GLARGINE SYRINGE. SQ SCH (21:00)
[2021-07-13] MEDS: ATORVASTATIN CALCIUM 40 MG TABLET. PO SCH (21:03)
[2021-07-13] MEDS: PSYLLIUM HUSK (SUGAR FREE) 1 PKT PACKET PO SCH (21:03)
[2021-07-13 23:00] VITALS: BP 120/66
[2021-07-14 03:09] VITALS: BP 113/65
[2021-07-14 07:00] VITALS: BP 104/47
--- NOTE | 2021-07-14 07:53 | PDOC ---
PULMONARY PROGRESS NOTES DATE: 07/14/21 TIME: 07:51 Subjective omn 8-10 lpm used bipap last night feels better Vitals Vital Signs Date Time Temp Pulse Resp B/P (MAP) Pulse Ox O2 Delivery O2 Flow Rate FiO2 07/14/21 03:09 97.4 54 20 113/65 (81) 99 BiPAP/CPAP 97.4 07/13/21 20:00 10.0 Comments Visual exam done due to COVID-19. no distress nc at rrr no accessory muscle use Morbidly obese Trace leg edema Labs Laboratory Tests Test 07/12/21 11:30 07/12/21 11:40 07/12/21 11:56 07/12/21 17:01 Sodium Level 136 mmol/L (136-145) Potassium Level 4.6 mmol/L (3.5-5.1) Chloride Level 95 mmol/L (98-107) Carbon Dioxide Level 36 mmol/L (21-32) Anion Gap 5 (6-14) Blood Urea Nitrogen 23 mg/dL (8-26) Creatinine 0.9 mg/dL (0.7-1.3) Estimated GFR (Cockcroft-Gault) 87.9 Glucose Level 308 mg/dL (70-99) Calcium Level 9.0 mg/dL (8.5-10.1) Magnesium Level 2.2 mg/dL (1.8-2.4) White Blood Count 19.9 x10^3/uL (4.0-11.0) Red Blood Count 4.50 x10^6/uL (4.30-5.70) Hemoglobin 14.2 g/dL (13.0-17.5) Hematocrit 42.8 % (39.0-53.0) Mean Corpuscular Volume 95 fL (79-100) Mean Corpuscular Hemoglobin 32 pg (25-35) Mean Corpuscular Hemoglobin Concent 33 g/dL (31-37) Red Cell Distribution Width 13.1 % (11.5-14.5) Platelet Count 297 x10^3/uL (140-400) Neutrophils (%) (Auto) 92 % (31-73) Lymphocytes (%) (Auto) 2 % (24-48) Monocytes (%) (Auto) 5 % (0-9) Eosinophils (%) (Auto) 0 % (0-3) Basophils (%) (Auto) 0 % (0-3) Neutrophils # (Auto) 18.4 x10^3/uL (1.8-7.7) Lymphocytes # (Auto) 0.5 x10^3/uL (1.0-4.8) Monocytes # (Auto) 1.0 x10^3/uL (0.0-1.1) Eosinophils # (Auto) 0.0 x10^3/uL (0.0-0.7) Basophils # (Auto) 0.1 x10^3/uL (0.0-0.2) Procalcitonin ng/mL (0.00-0.10) Glucose (Fingerstick) 275 mg/dL (70-99) 262 mg/dL (70-99) Test 07/12/21 20:50 07/13/21 07:25 07/13/21 07:31 07/13/21 12:25 Glucose (Fingerstick) 265 mg/dL (70-99) 340 mg/dL (70-99) 329 mg/dL (70-99) White Blood Count 17.1 x10^3/uL (4.0-11.0) Red Blood Count 4.19 x10^6/uL (4.30-5.70) Hemoglobin 13.8 g/dL (13.0-17.5) Hematocrit 39.9 % (39.0-53.0) Mean Corpuscular Volume 95 fL (79-100) Mean Corpuscular Hemoglobin 33 pg (25-35) Mean Corpuscular Hemoglobin Concent 35 g/dL (31-37) Red Cell Distribution Width 12.7 % (11.5-14.5) Platelet Count 259 x10^3/uL (140-400) Neutrophils (%) (Auto) 93 % (31-73) Lymphocytes (%) (Auto) 3 % (24-48) Monocytes (%) (Auto) 4 % (0-9) Eosinophils (%) (Auto) 0 % (0-3) Basophils (%) (Auto) 0 % (0-3) Neutrophils # (Auto) 15.8 x10^3/uL (1.8-7.7) Lymphocytes # (Auto) 0.5 x10^3/uL (1.0-4.8) Monocytes # (Auto) 0.8 x10^3/uL (0.0-1.1) Eosinophils # (Auto) 0.0 x10^3/uL (0.0-0.7) Basophils # (Auto) 0.0 x10^3/uL (0.0-0.2) Sodium Level 135 mmol/L (136-145) Potassium Level 5.0 mmol/L (3.5-5.1) Chloride Level 95 mmol/L (98-107) Carbon Dioxide Level 36 mmol/L (21-32) Anion Gap 4 (6-14) Blood Urea Nitrogen 23 mg/dL (8-26) Creatinine 1.0 mg/dL (0.7-1.3) Estimated GFR (Cockcroft-Gault) 77.9 Glucose Level 321 mg/dL (70-99) Calcium Level 8.4 mg/dL (8.5-10.1) Test 07/13/21 17:03 07/13/21 20:48 07/14/21 07:34 Glucose (Fingerstick) 230 mg/dL (70-99) 227 mg/dL (70-99) 260 mg/dL (70-99) Laboratory Tests Test 07/13/21 12:25 07/13/21 17:03 07/13/21 20:48 07/14/21 07:34 Glucose (Fingerstick) 329 mg/dL (70-99) 230 mg/dL (70-99) 227 mg/dL (70-99) 260 mg/dL (70-99) Medications Active Scripts Medications Dose Route/Sig Max Daily Dose Days Date Category Folic Acid 0.8 Mg Capsule 1 Cap PO DAILY 30 07/03/21 Reported Omeprazole 40 Mg Capsule.dr 1 Cap PO DAILY 07/03/21 Reported Sulfasalazine 500 Mg Tablet 500 Mg PO EVERY 6 HRS 01/28/19 Reported Lisinopril-Hctz 20-25 Mg Tab (Lisinopril/Hydrochlorothiazide) 1 Each Tablet 1 Tab PO DAILY 12/11/16 Reported Flovent 220MCG Hfa (Fluticasone Propionate) 12 Gm Aer.w.adap 12 Gm IH BID 12/11/16 Reported Albuterol Sulfate Neb Soln (Albuterol Sulfate) 2.5 Mg/3 Ml Vial.neb 1 Vial NEB PRN Q4HRS 12/11/16 Reported Multi-Vitamin Daily (Multivitamin) 1 Each Tablet 1 Each PO DAILY 12/11/16 Reported Fish Oil 1,000 Mg Softgel ([place]-3/Dha/Epa/Fish Oil) 1 Each Capsule 1 Each PO DAILY 12/11/16 Reported Cetirizine Hcl 10 Mg Tab.chew 10 Mg PO DAILY 12/11/16 Reported Atorvastatin Calcium 80 Mg Tablet 80 Mg PO HS 12/11/16 Reported Omeprazole 40 Mg Capsule.dr 40 Mg PO DAILY 12/11/16 Reported Dicyclomine Hcl 10 Mg Capsule 10 Mg PO TID 12/11/16 Reported Aspir 81 (Aspirin) 81 Mg Tablet.dr 81 Mg PO DAILY 12/11/16 Reported Vitamin D (Cholecalciferol (Vitamin D3)) 1,000 Unit Capsule 1,000 Unit PO DAILY 12/11/16 Reported Impression . 1. Acute hypoxic respiratory failure in a patient who is morbidly obese, has COVID-19 viral pneumonia and has underlying tobaccoism. He is at high risk for worsening hypoxia and clinical deterioration. He also has been on sulfasalazine for ulcerative colitis. Currently, oxygen requirement is at 10 L 2. Abnormal chest x-ray with bilateral patchy interstitial infiltrates, consistent with COVID-19 viral pneumonia. 3. Underlying tobaccoism with suspected chronic obstructive pulmonary disease. 4. Underlying morbid obesity. Plan . cont 02 titrate fio2 to keep sat 90% IS to use multiple times an hr bipap qhs cont during day prn sob 1. Continue to monitor respiratory status closely. 2. The patient was initiated on remdesivir and IV Solu-Medrol. Follow the protocol 3. DVT prophylaxis with Lovenox. 4. No clinical suspicion for bacterial pneumonia. 5. Discussed with RN, discussed with the patient. 6. BiPAP at nighttime. He likely has underlying MARGARITA, untreated Stable and slow improvement. Discussed with BALJINDRE SULLIVAN MD Jul 14, 2021 07:52
[2021-07-14] MEDS: DICYCLOMINE HCL 10 MG CAPSULE PO SCH ×3 (08:37→20:36)
[2021-07-14] MEDS: FOLIC ACID 1 MG TABLET. PO SCH (08:37)
[2021-07-14] MEDS: ASPIRIN ENTERIC COATED 81 MG TABLET.DR. PO SCH (08:37)
[2021-07-14] MEDS: ASCORBIC ACID 1,000 MG TABLET PO SCH ×3 (08:37→20:37)
[2021-07-14] MEDS: THIAMINE 100 MG TABLET. PO SCH (08:37)
[2021-07-14] MEDS: ZINC SULFATE 220 MG CAPSULE. PO SCH (08:37)
[2021-07-14] MEDS: metFORMIN 500 MG TABLET PO SCH ×2 (08:38→17:09)
[2021-07-14] MEDS: LISINOPRIL 20 MG TABLET PO SCH ×2 (08:38→20:36)
[2021-07-14] MEDS: FUROSEMIDE 20 MG TABLET PO SCH (08:38)
[2021-07-14] MEDS: METOPROLOL SUCC 24HR ER 25 MG TAB.ER.24H. PO SCH (08:39)
[2021-07-14] MEDS: ENOXAPARIN 40 MG/0.4 ML SYRINGE. SQ SCH ×2 (08:39→20:34)
[2021-07-14] MEDS: methylPREDNISolone SOD SUCC PF 40 MG/ML VIAL. IV SCH ×2 (08:40→20:35)
[2021-07-14] MEDS: FLUTICASONE/VILANTEROL 200/25 INHALER. INH SCH (08:40)
[2021-07-14] MEDS: INSULIN LISPRO 300 UNITS/3 ML VIAL. SQ SCH ×6 (08:44→17:12)
[2021-07-14] MEDS: BENZONATATE 100 MG CAPSULE. PO SCH ×3 (08:46→20:37)
[2021-07-14 11:00] VITALS: BP 135/58
[2021-07-14] MEDS: MAG HYDROX/ALUMINUM HYD/SIMETH 30 ML ORAL.SUSP PO PRN ×2 (11:21→15:40)
[2021-07-14 15:00] VITALS: BP 131/62
--- NOTE | 2021-07-14 15:41 | PDOC ---
[employer] PROGRESS NOTE Date of Service DOS: DATE: 07/14/21 TIME: 15:39 Chief Complaint Chief Complaint Acute hypoxic respiratory failure COVID-19 pneumonia Elevated D-dimer Acute electrolyte derangement with hyponatremia, hypochloremia suggestive of acute volume depletion PRASANNA due to vasomotor nephropathy Moderate protein malnutrition History of ulcerative colitis Morbid obesity Wheezing - add breo inhaler 200mcg Hyperglycemia - A1c 6.8, discussed diabetes diagnosis Ulcerative colitis - on sulfasalazine outpatient Smoker - has stopped prior to admission, counseled Admit to medicine for further management Pulmonology consult Continue IV thiamine and vitamin C IV 4 mg dexamethasone Daily Pending ferritin, LDH, CRP, D-dimer labs Titrate O2 supplementation to maintain O2 saturation greater than 92% Resume home ulcerative colitis medications Lovenox, consult pharmacy for dosing for DVT prophylaxis Protonix GI prophylaxis ADA diet Full code Discussed with RN and SW Disposition patient management as above Surrogate decision maker is the History of Present Illness History of Present Illness Mr Marcus is a 56 year old female with PMH of HTN, HLD, ulcerative colitis on sulfasalazine who presents with hypoxia in the setting of Covid. Was diagnosed on 06/26. He is unvaccinated. Over the past 4 days has had increasing shortness of breath. Does describe some burning chest pain. Has been constant for days. Not sharp or pleuritic. He has had fever/chills, cough, nausea, and diarrhea. Went to his PCP this morning was found to be hypoxic to 86-87% on room air. Improving with 2-4 L/min nasal cannula. 07/04:No acute events overnight. Patient saturating 92% on 2 L nasal cannula. Will decrease his IV fluids to NS at 75 cc/h. Sodium improving and creatinine decreased from 1.6-1.2. Patient is still has prerenal azotemia. No concerns from nursing at this time. 07/05: No acute events overnight. Patient saturating 92% on 6 L nasal cannula. Will DC IV fluids. Continue with IV Remdesivir and IV steroids. Patient's chart, labs, images were reviewed and discussed with RN 07/06: No acute events overnight. Patient saturating 93% on 10 L nasal cannula. Creatinine has improved and electrolytes have normalized. Continue with IV Remdesivir and steroids. Pulmonology following. Patient's chart, labs, images were reviewed and discussed with RN 07/07: No acute events overnight. Patient saturating 96% on 10 L nasal cannula. Resting comfortably at bedside. Currently on Remdesivir and IV steroids. No concerns from nursing at this time. Patient's chart, labs, images were reviewed and discussed with RN 07/08: No acute events overnight. Patient saturating 93% on 10 L nasal cannula. No accessory muscle use and no dyspnea during my interview. Patient's chart, labs, images were reviewed and discussed with RN 07/09: Afebrile overnight tolerated BiPAP well says he slept better. O2 saturations 94% on 10 L. He has significant wheezes has been using his home albuterol inhaler. Just does not feel he can get a deep breath. 07/10: Afebrile. Tolerating BiPAP well overnight. Still says he cannot get a deep breath feels that may be the Breo inhaler is helping with his wheezing. Still on 10 L nasal cannula O2 saturations 90 to 94%. 07/11: Afebrile. A1c 6.8. Tolerated BiPAP well but still requiring 8 to 10 L O2 sat 94%. CXR increased interstitial opacities. He notes that he had BLE edema which he had prior to this admission and has been checking his blood sugar at home. Still receiving IV steroids completed IV remdesivir. 07/12: Afebrile. Down to 8 L nasal cannula oxygen. O2 saturations 92%. 5100 cc urine output with Lasix IV. We will continue. 07/13: Afebrile. 4450cc UOP past 24 hours. Feels like his breathing is a little better. Some indigestion. Labs stable. Glucose elevated. Afebrile. Transition to p.o. Lasix surrounding p.o. metoprolol with improvement. O2 down to 6 L nasal cannula when sitting up saturations are 92%. Still some indigestion asking for PPI. Vitals/I&O Vitals/I&O: Vital Signs Date Time Temp Pulse Resp B/P (MAP) Pulse Ox O2 Delivery O2 Flow Rate FiO2 07/14/21 11:00 97.4 58 18 135/58 (83) 98 97.4 07/14/21 09:28 High Flow Nasal Cannula 8.0 I & O 07/13/21 07/13/21 07/14/21 15:00 23:00 07:00 Intake Total 640 ml Output Total 800 ml 2000 ml Balance -160 ml -2000 ml Physical Exam General: Alert, Oriented X3, Cooperative Heart: Regular rate Abdomen: Normal bowel sounds Extremities: No clubbing Skin: No rashes, No significant lesion Labs Labs: Laboratory Tests Test 07/13/21 17:03 07/13/21 20:48 07/14/21 07:34 07/14/21 12:00 Glucose (Fingerstick) 230 mg/dL (70-99) 227 mg/dL (70-99) 260 mg/dL (70-99) 270 mg/dL (70-99) Assessment and Plan Assessmemt and Plan Problems Medical Problems: (1) Hyponatremia Status: Acute (2) Pneumonia due to COVID-19 virus Status: Acute (3) Respiratory failure with hypoxia Status: Acute Comment Review of Relevant I have reviewed the following items nadir (where applicable) has been applied. Medications: Current Medications Medications (Trade) Dose Ordered Sig/Zach Route PRN Reason Start Time Stop Time Status Last Admin Dose Admin Methylprednisolone Sodium Succinate (SOLU-Medrol 40MG VIAL) 40 mg BID IV 07/13/21 21:00 07/14/21 08:40 Insulin Glargine (Lantus Syringe) 22 unit QHS SQ 07/13/21 21:00 07/13/21 21:00 Furosemide (Lasix) 20 mg DAILY PO 07/14/21 09:00 07/14/21 08:38 Justifications for Admission Other Justification COVID-19 positive test (U07.1, COVID-19) with Acute Pneumonia (J12.89, Other viral pneumonia) (If respiratory failure or sepsis present, add as separate assessment) RON TILLMAN MD Jul 14, 2021 15:41
[2021-07-14] MEDS ORDERED: PANTOPRAZOLE 40 MG TABLET.DR. PO ONE (15:45)
[2021-07-14 19:00] VITALS: BP 133/56
[2021-07-14] MEDS: PSYLLIUM HUSK (SUGAR FREE) 1 PKT PACKET PO SCH (20:33)
[2021-07-14] MEDS: INSULIN GLARGINE SYRINGE. SQ SCH (20:35)
[2021-07-14] MEDS: ATORVASTATIN CALCIUM 40 MG TABLET. PO SCH (20:37)
[2021-07-14 23:02] VITALS: BP 123/69
[2021-07-15 03:07] VITALS: BP 117/74
[2021-07-15 07:00] VITALS: BP 118/63
--- NOTE | 2021-07-15 07:09 | PDOC ---
PULMONARY PROGRESS NOTES DATE: 07/15/21 TIME: 07:08 Subjective on 02 7 lpm used bipap last night feels better so better Vitals Vital Signs Date Time Temp Pulse Resp B/P (MAP) Pulse Ox O2 Delivery O2 Flow Rate FiO2 07/15/21 03:07 97.4 60 20 117/74 (88) 99 BiPAP/CPAP 97.4 07/14/21 20:05 5.0 Comments Visual exam done due to COVID-19. no distress nc at rrr no accessory muscle use Morbidly obese Trace leg edema Labs Laboratory Tests Test 07/13/21 07:25 07/13/21 07:31 07/13/21 12:25 07/13/21 17:03 White Blood Count 17.1 x10^3/uL (4.0-11.0) Red Blood Count 4.19 x10^6/uL (4.30-5.70) Hemoglobin 13.8 g/dL (13.0-17.5) Hematocrit 39.9 % (39.0-53.0) Mean Corpuscular Volume 95 fL (79-100) Mean Corpuscular Hemoglobin 33 pg (25-35) Mean Corpuscular Hemoglobin Concent 35 g/dL (31-37) Red Cell Distribution Width 12.7 % (11.5-14.5) Platelet Count 259 x10^3/uL (140-400) Neutrophils (%) (Auto) 93 % (31-73) Lymphocytes (%) (Auto) 3 % (24-48) Monocytes (%) (Auto) 4 % (0-9) Eosinophils (%) (Auto) 0 % (0-3) Basophils (%) (Auto) 0 % (0-3) Neutrophils # (Auto) 15.8 x10^3/uL (1.8-7.7) Lymphocytes # (Auto) 0.5 x10^3/uL (1.0-4.8) Monocytes # (Auto) 0.8 x10^3/uL (0.0-1.1) Eosinophils # (Auto) 0.0 x10^3/uL (0.0-0.7) Basophils # (Auto) 0.0 x10^3/uL (0.0-0.2) Sodium Level 135 mmol/L (136-145) Potassium Level 5.0 mmol/L (3.5-5.1) Chloride Level 95 mmol/L (98-107) Carbon Dioxide Level 36 mmol/L (21-32) Anion Gap 4 (6-14) Blood Urea Nitrogen 23 mg/dL (8-26) Creatinine 1.0 mg/dL (0.7-1.3) Estimated GFR (Cockcroft-Gault) 77.9 Glucose Level 321 mg/dL (70-99) Calcium Level 8.4 mg/dL (8.5-10.1) Glucose (Fingerstick) 340 mg/dL (70-99) 329 mg/dL (70-99) 230 mg/dL (70-99) Test 07/13/21 20:48 07/14/21 07:34 07/14/21 12:00 07/14/21 16:48 Glucose (Fingerstick) 227 mg/dL (70-99) 260 mg/dL (70-99) 270 mg/dL (70-99) 252 mg/dL (70-99) Test 07/14/21 20:30 Glucose (Fingerstick) 265 mg/dL (70-99) Laboratory Tests Test 07/14/21 07:34 07/14/21 12:00 07/14/21 16:48 07/14/21 20:30 Glucose (Fingerstick) 260 mg/dL (70-99) 270 mg/dL (70-99) 252 mg/dL (70-99) 265 mg/dL (70-99) Medications Active Scripts Medications Dose Route/Sig Max Daily Dose Days Date Category Folic Acid 0.8 Mg Capsule 1 Cap PO DAILY 30 07/03/21 Reported Omeprazole 40 Mg Capsule. 1 Cap PO DAILY 07/03/21 Reported Sulfasalazine 500 Mg Tablet 500 Mg PO EVERY 6 HRS 01/28/19 Reported Lisinopril-Hctz 20-25 Mg Tab (Lisinopril/Hydrochlorothiazide) 1 Each Tablet 1 Tab PO DAILY 12/11/16 Reported Flovent 220MCG Hfa (Fluticasone Propionate) 12 Gm Aer.w.adap 12 Gm IH BID 12/11/16 Reported Albuterol Sulfate Neb Soln (Albuterol Sulfate) 2.5 Mg/3 Ml Vial.neb 1 Vial NEB PRN Q4HRS 12/11/16 Reported Multi-Vitamin Daily (Multivitamin) 1 Each Tablet 1 Each PO DAILY 12/11/16 Reported Fish Oil 1,000 Mg Softgel ([place]-3/Dha/Epa/Fish Oil) 1 Each Capsule 1 Each PO DAILY 12/11/16 Reported Cetirizine Hcl 10 Mg Tab.chew 10 Mg PO DAILY 12/11/16 Reported Atorvastatin Calcium 80 Mg Tablet 80 Mg PO HS 12/11/16 Reported Omeprazole 40 Mg Capsule. 40 Mg PO DAILY 12/11/16 Reported Dicyclomine Hcl 10 Mg Capsule 10 Mg PO TID 12/11/16 Reported Aspir 81 (Aspirin) 81 Mg Tablet. 81 Mg PO DAILY 12/11/16 Reported Vitamin D (Cholecalciferol (Vitamin D3)) 1,000 Unit Capsule 1,000 Unit PO DAILY 12/11/16 Reported Impression . 1. Acute hypoxic respiratory failure in a patient who is morbidly obese, has COVID-19 viral pneumonia and has underlying tobaccoism. He is at high risk for worsening hypoxia and clinical deterioration. He also has been on sulfasalazine for ulcerative colitis. Currently, oxygen requirement is at 10 L 2. Abnormal chest x-ray with bilateral patchy interstitial infiltrates, consistent with COVID-19 viral pneumonia. 3. Underlying tobaccoism with suspected chronic obstructive pulmonary disease. 4. Underlying morbid obesity. Plan . cont 02 titrate fio2 to keep sat 90% IS to use multiple times an hr bipap qhs cont during day prn sob psg when completely over covid lose wt and exercise 1. Continue to monitor respiratory status closely. 2. The patient was initiated on remdesivir change IV Solu-Medrol to prednisone 40 mg daily w taper total steroid 10 days. Follow the protocol 3. DVT prophylaxis with Lovenox. 4. No clinical suspicion for bacterial pneumonia. 5. Discussed with RN, discussed with the patient. 6. BiPAP at nighttime. He likely has underlying MARGARITA, untreated Discussed with BALJINDER SULLIVAN MD Jul 15, 2021 07:09
[2021-07-15 07:18] LABS: BASO % 0 % (0-3); EOS % 0 % (0-3); HEMATOCRIT 42.1 % (39.0-53.0); HEMOGLOBIN 14.3 g/dL (13.0-17.5); LYMPH # 0.7 x10^3/uL (1.0-4.8); LYMPH % 4 % (24-48); MEAN CORPUSCULAR HEMOGLOBIN 33 pg (25-35); MEAN CORPUSCULAR HGB CONC 34 g/dL (31-37); MEAN CORPUSCULAR VOLUME 96 fL (79-100); MONO # 0.7 x10^3/uL (0.0-1.1); MONO % 4 % (0-9); NEUT # 16.4 x10^3/uL (1.8-7.7); NEUT % 92 % (31-73); PLATELET COUNT 247 x10^3/uL (140-400); RED BLOOD COUNT 4.37 x10^6/uL (4.30-5.70); RED CELL DISTRIBUTION WIDTH 13.1 % (11.5-14.5); WHITE BLOOD COUNT 17.8 x10^3/uL (4.0-11.0)
[2021-07-15 07:32] LABS: CALCIUM 8.5 mg/dL (8.5-10.1); CREATININE 0.9 mg/dL (0.7-1.3); GFR 87.9; MAGNESIUM 2.5 mg/dL (1.8-2.4); POTASSIUM 4.9 mmol/L (3.5-5.1)
[2021-07-15] MEDS: ASPIRIN ENTERIC COATED 81 MG TABLET.DR. PO SCH (08:06)
[2021-07-15] MEDS: FOLIC ACID 1 MG TABLET. PO SCH (08:06)
[2021-07-15] MEDS: METOPROLOL SUCC 24HR ER 25 MG TAB.ER.24H. PO SCH (08:07)
[2021-07-15] MEDS: PANTOPRAZOLE 40 MG TABLET.DR. PO SCH (08:07)
[2021-07-15] MEDS: DICYCLOMINE HCL 10 MG CAPSULE PO SCH ×3 (08:08→21:46)
[2021-07-15] MEDS: ZINC SULFATE 220 MG CAPSULE. PO SCH (08:08)
[2021-07-15] MEDS: ASCORBIC ACID 1,000 MG TABLET PO SCH ×3 (08:08→21:46)
[2021-07-15] MEDS: BENZONATATE 100 MG CAPSULE. PO SCH ×3 (08:08→21:45)
[2021-07-15] MEDS: predniSONE 20 MG TABLET PO SCH (08:09)
[2021-07-15] MEDS: THIAMINE 100 MG TABLET. PO SCH (08:09)
[2021-07-15] MEDS: LISINOPRIL 20 MG TABLET PO SCH ×2 (08:09→21:47)
[2021-07-15] MEDS: ENOXAPARIN 40 MG/0.4 ML SYRINGE. SQ SCH ×2 (08:10→21:46)
[2021-07-15] MEDS: metFORMIN 500 MG TABLET PO SCH ×2 (08:10→17:28)
[2021-07-15] MEDS: FUROSEMIDE 20 MG TABLET PO SCH (08:10)
[2021-07-15] MEDS: INSULIN LISPRO 300 UNITS/3 ML VIAL. SQ SCH ×6 (08:11→17:28)
[2021-07-15] MEDS: FLUTICASONE/VILANTEROL 200/25 INHALER. INH SCH (09:00)
[2021-07-15 11:03] VITALS: BP 117/69
--- NOTE | 2021-07-15 13:41 | PDOC ---
[facility] [facility] PROGRESS NOTE Date of Service DOS: DATE: 07/15/21 TIME: 13:39 Chief Complaint Chief Complaint A/P: Acute hypoxic respiratory failure COVID-19 pneumonia Elevated D-dimer Acute electrolyte derangement with hyponatremia, hypochloremia suggestive of acute volume depletion PRASANNA due to vasomotor nephropathy Moderate protein malnutrition History of ulcerative colitis Morbid obesity Wheezing - add breo inhaler 200mcg Hyperglycemia - A1c 6.8, discussed diabetes diagnosis Ulcerative colitis - on sulfasalazine outpatient Smoker - has stopped prior to admission, counseled Admit to medicine for further management Pulmonology consult Continue IV thiamine and vitamin C IV 4 mg dexamethasone Daily Pending ferritin, LDH, CRP, D-dimer labs Titrate O2 supplementation to maintain O2 saturation greater than 92% Resume home ulcerative colitis medications Lovenox, consult pharmacy for dosing for DVT prophylaxis Protonix GI prophylaxis ADA diet Full code Discussed with RN and SW Disposition patient management as above Surrogate decision maker is the History of Present Illness History of Present Illness Mr Marcus is a 56 year old female with PMH of HTN, HLD, ulcerative colitis on sulfasalazine who presents with hypoxia in the setting of Covid. Was diagnosed on 06/26. He is unvaccinated. Over the past 4 days has had increasing shortness of breath. Does describe some burning chest pain. Has been constant for days. Not sharp or pleuritic. He has had fever/chills, cough, nausea, and diarrhea. Went to his PCP this morning was found to be hypoxic to 86-87% on room air. Improving with 2-4 L/min nasal cannula. 07/04:No acute events overnight. Patient saturating 92% on 2 L nasal cannula. Will decrease his IV fluids to NS at 75 cc/h. Sodium improving and creatinine decreased from 1.6-1.2. Patient is still has prerenal azotemia. No concerns from nursing at this time. 07/05: No acute events overnight. Patient saturating 92% on 6 L nasal cannula. Will DC IV fluids. Continue with IV Remdesivir and IV steroids. Patient's chart, labs, images were reviewed and discussed with RN 07/06: No acute events overnight. Patient saturating 93% on 10 L nasal cannula. Creatinine has improved and electrolytes have normalized. Continue with IV Remdesivir and steroids. Pulmonology following. Patient's chart, labs, images were reviewed and discussed with RN 07/07: No acute events overnight. Patient saturating 96% on 10 L nasal cannula. Resting comfortably at bedside. Currently on Remdesivir and IV steroids. No concerns from nursing at this time. Patient's chart, labs, images were reviewed and discussed with RN 07/08: No acute events overnight. Patient saturating 93% on 10 L nasal cannula. No accessory muscle use and no dyspnea during my interview. Patient's chart, labs, images were reviewed and discussed with RN 07/09: Afebrile overnight tolerated BiPAP well says he slept better. O2 saturations 94% on 10 L. He has significant wheezes has been using his home albuterol inhaler. Just does not feel he can get a deep breath. 07/10: Afebrile. Tolerating BiPAP well overnight. Still says he cannot get a deep breath feels that may be the Breo inhaler is helping with his wheezing. Still on 10 L nasal cannula O2 saturations 90 to 94%. 07/11: Afebrile. A1c 6.8. Tolerated BiPAP well but still requiring 8 to 10 L O2 sat 94%. CXR increased interstitial opacities. He notes that he had BLE edema which he had prior to this admission and has been checking his blood sugar at home. Still receiving IV steroids completed IV remdesivir. 07/12: Afebrile. Down to 8 L nasal cannula oxygen. O2 saturations 92%. 5100 cc urine output with Lasix IV. We will continue. 07/13: Afebrile. 4450cc UOP past 24 hours. Feels like his breathing is a little better. Some indigestion. Labs stable. Glucose elevated. 07/14: Afebrile. Transition to p.o. Lasix surrounding p.o. metoprolol with improvement. O2 down to 6 L nasal cannula when sitting up saturations are 92%. Still some indigestion asking for PPI. 07/15: Afebrile. Tolerated BiPAP last night. Tolerating 6 to 7 L nasal cannula O2 with saturations 99% discussed possibility of 6-minute walk today Vitals/I&O Vitals/I&O: Vital Signs Date Time Temp Pulse Resp B/P (MAP) Pulse Ox O2 Delivery O2 Flow Rate FiO2 07/15/21 11:03 98.1 67 20 117/69 (85) 94 Nasal Cannula 7.0 98.1 I & O 07/14/21 07/14/21 07/15/21 15:00 23:00 07:00 Intake Total 620 ml 800 ml Output Total 851 ml 400 ml 3200 ml Balance -231 ml 400 ml -3200 ml Physical Exam General: Alert, Oriented X3, Cooperative Heart: Regular rate Abdomen: Normal bowel sounds Extremities: No clubbing Skin: No rashes, No significant lesion Labs Labs: Laboratory Tests Test 07/14/21 16:48 07/14/21 20:30 07/15/21 05:50 07/15/21 07:26 Glucose (Fingerstick) 252 mg/dL (70-99) 265 mg/dL (70-99) 249 mg/dL (70-99) White Blood Count 17.8 x10^3/uL (4.0-11.0) Red Blood Count 4.37 x10^6/uL (4.30-5.70) Hemoglobin 14.3 g/dL (13.0-17.5) Hematocrit 42.1 % (39.0-53.0) Mean Corpuscular Volume 96 fL (79-100) Mean Corpuscular Hemoglobin 33 pg (25-35) Mean Corpuscular Hemoglobin Concent 34 g/dL (31-37) Red Cell Distribution Width 13.1 % (11.5-14.5) Platelet Count 247 x10^3/uL (140-400) Neutrophils (%) (Auto) 92 % (31-73) Lymphocytes (%) (Auto) 4 % (24-48) Monocytes (%) (Auto) 4 % (0-9) Eosinophils (%) (Auto) 0 % (0-3) Basophils (%) (Auto) 0 % (0-3) Neutrophils # (Auto) 16.4 x10^3/uL (1.8-7.7) Lymphocytes # (Auto) 0.7 x10^3/uL (1.0-4.8) Monocytes # (Auto) 0.7 x10^3/uL (0.0-1.1) Eosinophils # (Auto) 0.0 x10^3/uL (0.0-0.7) Basophils # (Auto) 0.0 x10^3/uL (0.0-0.2) Sodium Level 138 mmol/L (136-145) Potassium Level 4.9 mmol/L (3.5-5.1) Chloride Level 101 mmol/L (98-107) Carbon Dioxide Level 37 mmol/L (21-32) Anion Gap 0 (6-14) Blood Urea Nitrogen 17 mg/dL (8-26) Creatinine 0.9 mg/dL (0.7-1.3) Estimated GFR (Cockcroft-Gault) 87.9 Glucose Level 201 mg/dL (70-99) Calcium Level 8.5 mg/dL (8.5-10.1) Magnesium Level 2.5 mg/dL (1.8-2.4) Test 07/15/21 11:40 Glucose (Fingerstick) 355 mg/dL (70-99) Assessment and Plan Assessmemt and Plan Problems Medical Problems: (1) Hyponatremia Status: Acute (2) Pneumonia due to COVID-19 virus Status: Acute (3) Respiratory failure with hypoxia Status: Acute Comment Review of Relevant I have reviewed the following items nadir (where applicable) has been applied. Medications: Current Medications Medications (Trade) Dose Ordered Sig/Zach Route PRN Reason Start Time Stop Time Status Last Admin Dose Admin Pantoprazole Sodium (Protonix) 40 mg 1X ONCE PO 07/14/21 15:45 07/14/21 15:46 DC 07/14/21 16:26 Pantoprazole Sodium (Protonix) 40 mg DAILYAC PO 07/15/21 07:30 07/15/21 08:07 Prednisone (Prednisone) 40 mg DAILY PO 07/15/21 09:00 07/15/21 08:09 Justifications for Admission Other Justification COVID-19 positive test (U07.1, COVID-19) with Acute Pneumonia (J12.89, Other v iral pneumonia) (If respiratory failure or sepsis present, add as separate assessment) RON TILLMAN MD Jul 15, 2021 13:41
[2021-07-15 15:02] VITALS: BP 111/73
[2021-07-15 19:00] VITALS: BP 118/72
[2021-07-15] MEDS: PSYLLIUM HUSK (SUGAR FREE) 1 PKT PACKET PO SCH ×2 (21:45→21:52)
[2021-07-15] MEDS: INSULIN GLARGINE SYRINGE. SQ SCH (21:45)
[2021-07-15] MEDS: ATORVASTATIN CALCIUM 40 MG TABLET. PO SCH (21:46)
[2021-07-15 23:03] VITALS: BP 116/71
[2021-07-16 04:46] VITALS: BP 104/67
[2021-07-16 07:00] VITALS: BP 97/54
[2021-07-16] MEDS: INSULIN LISPRO 300 UNITS/3 ML VIAL. SQ SCH ×4 (07:30→12:48)
[2021-07-16] MEDS: ENOXAPARIN 40 MG/0.4 ML SYRINGE. SQ SCH (09:00)
[2021-07-16] MEDS: METOPROLOL SUCC 24HR ER 25 MG TAB.ER.24H. PO SCH (09:00)
[2021-07-16] MEDS: FLUTICASONE/VILANTEROL 200/25 INHALER. INH SCH (09:00)
[2021-07-16] MEDS: LISINOPRIL 20 MG TABLET PO SCH (09:00)
[2021-07-16] MEDS: ALBUTEROL SULFATE 8GM INHALER. INH PRN (10:27)
[2021-07-16] MEDS: THIAMINE 100 MG TABLET. PO SCH (10:28)
[2021-07-16] MEDS: ZINC SULFATE 220 MG CAPSULE. PO SCH (10:28)
[2021-07-16] MEDS: ASCORBIC ACID 1,000 MG TABLET PO SCH (10:28)
[2021-07-16] MEDS: NICOTINE 21MG PATCH. TD PRN (10:28)
[2021-07-16] MEDS: metFORMIN 500 MG TABLET PO SCH (10:29)
[2021-07-16] MEDS: FOLIC ACID 1 MG TABLET. PO SCH (10:29)
[2021-07-16] MEDS: ASPIRIN ENTERIC COATED 81 MG TABLET.DR. PO SCH (10:29)
[2021-07-16] MEDS: DICYCLOMINE HCL 10 MG CAPSULE PO SCH (10:29)
[2021-07-16] MEDS: PANTOPRAZOLE 40 MG TABLET.DR. PO SCH (10:29)
[2021-07-16] MEDS: BENZONATATE 100 MG CAPSULE. PO SCH (10:29)
[2021-07-16] MEDS: predniSONE 20 MG TABLET PO SCH (10:30)
[2021-07-16 11:00] VITALS: BP 113/72
[2021-07-16] MEDS ORDERED: LISI-130 PO (12:21)
[2021-07-16] MEDS ORDERED: METO-239 PO (12:21)
[2021-07-16] MEDS ORDERED: INSU100V8 SQ (12:21)
[2021-07-16] MEDS ORDERED: INSU100V35 SQ (12:21)
[2021-07-16] MEDS ORDERED: FURO20TA3 PO (12:21)
[2021-07-16] MEDS ORDERED: METH4TAB2 PO (12:22)
[2021-07-16] MEDS: FUROSEMIDE 20 MG TABLET PO SCH (12:46)
--- NOTE | 2021-07-16 13:08 | NUR ---
SW following. Discussed with RN, pt from home, COVID-19 positive. Pt completed a 6 minute walk needing 6L with activity. Pt does not have a preference of oxygen provider. Referral sent to [facility], awaiting approval to provide tank. RN notified. SW will continue to follow.
--- NOTE | 2021-07-16 14:22 | NUR ---
Patient escorted out to main entrance by wheelchair and home O2. 6LNC with exertion, 0 at rest. Patient educated on home O2, and medications. Monitoring BS, BP, and O2 sat levels and to follow up with cardiology outpatient once recovered.
--- NOTE | 2021-07-16 20:24 | DS ---
DATE OF DISCHARGE: 07/16/2021 ADMITTING DIAGNOSIS: COVID-19 respiratory failure. DISCHARGE DIAGNOSES: Resolving COVID-19 respiratory failure, diabetes, hypertension. HOSPITAL COURSE: The patient is a pleasant middle-aged male who presented with respiratory failure. He was COVID-19 positive. We gave him IV steroids, remdesivir, antibiotics, vitamins, minerals, oxygen, anticoagulation. Over the past few days, he has finally returned to his baseline. Today, I saw and examined him. He is on minimal oxygen. He wants to go home. He has got good energy. We plan to discharge. DISPOSITION: Home. ACTIVITY: As tolerated. DIET: Low sodium. MEDICATIONS: Please see the MRAD. Lasix 20 a day, insulin 22 units of Lantus at bedtime and 5 units of NovoLog with meals, lisinopril 40 a day, Medrol Dosepak, metoprolol 25 a day, albuterol metered dose inhaler, aspirin 81 a day, atorvastatin 80 a day, cetirizine 10 a day, vitamins, dicyclomine 10 t.i.d., fluticasone, folic acid, lisinopril/hydrochlorothiazide 20/12.5 one a day, multiple vitamin, fish oil, omeprazole 40 a day and sulfasalazine 500 mg q. 6 hours. Total time [address]: Ricardo TID: [id number]
== END 2021-07-16 14:23 | disposition home or self-care (01) | DRG 177 ==
LOC: ER 08:33 → 5 NORTH 10:28
PROVIDERS: ADMIT Internal Medicine; ATTEND Internal Medicine
PROC: XW033E5 Introduction of Remdesivir Anti-infective into Peripheral Vein, Percutaneous Approach, New Technology Group 5 (ICD-10-PCS; principal; 2021-07-04)
PROC: 5A0935A Assistance with Respiratory Ventilation, Less than 24 Consecutive Hours, High Flow/Velocity Cannula (ICD-10-PCS; 2021-07-07)
PROC: 5A09357 Assistance with Respiratory Ventilation, Less than 24 Consecutive Hours, Continuous Positive Airway Pressure (ICD-10-PCS; 2021-07-08)
PROC: 5A09357 Assistance with Respiratory Ventilation, Less than 24 Consecutive Hours, Continuous Positive Airway Pressure (ICD-10-PCS; 2021-07-10)
PROC: 5A09357 Assistance with Respiratory Ventilation, Less than 24 Consecutive Hours, Continuous Positive Airway Pressure (ICD-10-PCS; 2021-07-10)
PROC: 5A09357 Assistance with Respiratory Ventilation, Less than 24 Consecutive Hours, Continuous Positive Airway Pressure (ICD-10-PCS; 2021-07-11)
PROC: 5A09357 Assistance with Respiratory Ventilation, Less than 24 Consecutive Hours, Continuous Positive Airway Pressure (ICD-10-PCS; 2021-07-12)
PROC: 5A09357 Assistance with Respiratory Ventilation, Less than 24 Consecutive Hours, Continuous Positive Airway Pressure (ICD-10-PCS; 2021-07-13)
PROC: 5A0935A Assistance with Respiratory Ventilation, Less than 24 Consecutive Hours, High Flow/Velocity Cannula (ICD-10-PCS; 2021-07-14)
DX: U07.1 COVID-19 (principal); J96.01 Acute respiratory failure with hypoxia; J12.82 Pneumonia due to coronavirus disease 2019; N17.0 Acute kidney failure with tubular necrosis; E44.0 Moderate protein-calorie malnutrition; E87.1 Hypo-osmolality and hyponatremia; J44.0 Chronic obstructive pulmonary disease with (acute) lower respiratory infection; Z68.41 Body mass index [BMI] 40.0-44.9, adult; E11.9 Type 2 diabetes mellitus without complications; E66.01 Morbid (severe) obesity due to excess calories; E78.00 Pure hypercholesterolemia, unspecified; E78.5 Hyperlipidemia, unspecified; E87.8 Other disorders of electrolyte and fluid balance, not elsewhere classified; F17.200 Nicotine dependence, unspecified, uncomplicated; Z88.8 Allergy status to other drugs, medicaments and biological substances; I10 Essential (primary) hypertension; Z28.3 Underimmunization status; E11.65 Type 2 diabetes mellitus with hyperglycemia; Z79.4 Long term (current) use of insulin
CPT/HCPCS: 36415; 71045; 80048; 80053; 82962; 83036; 83735; 83880; 84100; 84145; 84484; 85007; 85025; 85379; 86140; 93005; 94618; 94660; 94760; 96374; J1100; J1650; J1815; J1940; J2920; J2930; J7030; J7050; J7512; 99285-25; G0378

== ENCOUNTER → 2021-08-24 | Outpatient (CLI) | payer BC ==
[~2021-08-24] MED LIST changes: +FOLI0.8C PO; +FURO20TA3 PO; +INSU100V35 SQ; +INSU100V8 SQ; +LISI-130 PO; +METH4TAB2 PO; +METO-239 PO
--- NOTE | 2021-08-24 13:26 | CARD ---
MR#: [id number] Date of Study: 08/24/2021 Ordering Physician: BIPIN ROONEY, Referring Physician: BIPIN ROONEY, Tech: Nuria Porras [facility] APPROVED REPORT EXAM: Two-dimensional and M-mode echocardiogram with Doppler and color Doppler. Other Information Quality : AverageHR: 75bpm Rhythm : NSR INDICATION Congenital Heart Disease RISK FACTORS Hypertension Obesity Smoking 2D DIMENSIONS RVDd4.2 (2.9-3.5cm)Left Atrium(2D)4.2 (1.6-4.0cm) IVSd1.2 (0.7-1.1cm)Aortic Root(2D)3.2 (2.0-3.7cm) LVDd4.4 (3.9-5.9cm)LVOT Diameter2.4 (1.8-2.4cm) PWd1.1 (0.7-1.1cm)LVDs3.1 (2.5-4.0cm) FS (%) 29.6 %SV51.0 ml Aortic Valve AoV Peak Jaden.168.5cm/sAoV VTI31.0cm AO Peak GR.11.4mmHgLVOT Peak Jaden.148.7cm/s AO Mean GR.5mmHgAVA (VMAX)3.94cm2 Mitral Valve MV E Tqzrepgd37.6cm/sMV DECEL [id number] MV A Cnxdunyk624.4cm/sE/A Ratio0.8 LEFT VENTRICLE The left ventricle is normal size. There is normal left ventricular wall thickness. The left ventricu lar systolic function is normal. The ejection fraction is 55 to 60%. There is normal LV segmental wa ll motion. Transmitral Doppler flow pattern is Grade I-abnormal relaxation pattern. RIGHT VENTRICLE The right ventricle is normal size. There is normal right ventricular wall thickness. The right ventr icular systolic function is normal. ATRIA The left atrium size is normal. The right atrium size is normal. The interatrial septum is intact wit h no evidence for an atrial septal defect or patent foramen ovale as noted on 2-D or Doppler imaging. AORTIC VALVE The aortic valve is normal in structure and function. Doppler and Color Flow revealed no significant aortic regurgitation. There is no significant aortic valvular stenosis. MITRAL VALVE The mitral valve is normal in structure and function. There is no evidence of mitral valve prolapse. There is no mitral valve stenosis. Doppler and Color Flow revealed trace mitral valve regurgitation. TRICUSPID VALVE The tricuspid valve is normal in structure and function. Doppler and Color Flow revealed no tricuspid valve regurgitation noted. There is no tricuspid valve stenosis. PULMONIC VALVE The pulmonary valve is normal in structure and function. Doppler and Color Flow revealed no pulmonic valvular regurgitation. GREAT VESSELS The aortic root is normal in size. The ascending aorta is normal in size. The IVC is normal in size a nd collapses >50% with inspiration. PERICARDIAL EFFUSION There is no evidence of significant pericardial effusion. Critical Notification Critical Value: No <Conclusion> The left ventricle is normal size. The left ventricular systolic function is normal. The ejection fraction is 55 to 60%. Doppler and Color Flow revealed no significant aortic regurgitation. There is no significant aortic valvular stenosis. Doppler and Color Flow revealed trace mitral valve regurgitation. Doppler and Color Flow revealed no tricuspid valve regurgitation noted. Signed by : Bipin Rooney MD Electronically Approved : 08/24/2021 13:26:00
== END ==
LOC: ECHO 10:23
PROVIDERS: ATTEND Internal Medicine Cardiovascular Disease
DX: R01.1 Cardiac murmur, unspecified (principal); I10 Essential (primary) hypertension; F17.210 Nicotine dependence, cigarettes, uncomplicated; E66.9 Obesity, unspecified; Z68.43 Body mass index [BMI] 50.0-59.9, adult
CPT/HCPCS: 93306

== ENCOUNTER → 2022-04-09 | Outpatient (CLI) | payer BC ==
[~2022-04-09] MED LIST changes: -CETI10TA30 PO; +CETI10TA31 PO; -LISI1TAB20 PO; +LISI1TAB39 PO
--- NOTE | 2022-04-09 13:07 | KCIC ---
INDICATION: Reason: Xyphoid prominence. Follow-up of infiltrate. COMPARISON: June 2021 FINDINGS: 2 view of chest obtained. Cardiac mediastinal silhouette is similar to prior. Numerous calcified nodules in the bilateral lungs which could be sequela of chronic granulomatous dis ease. Degenerative changes of the spine. Previously identified airspace consolidation appears improved from prior. Degenerative changes of the spine. Hypertrophic appearance of the inferior aspect of the sternum. IMPRESSION: * Interval improvement in bilateral airspace opacities. * Hypertrophic appearance of the inferior aspect of the sternum which could be from causes such as c allus formation or osseous excrescence. Electronically signed by: Abraham Bojorquez MD (04/09/2022 1:05 PM) [id number]
== END ==
LOC: KCIC 11:07
PROVIDERS: ATTEND Family Medicine
DX: R29.898 Other symptoms and signs involving the musculoskeletal system (principal); R91.8 Other nonspecific abnormal finding of lung field; M47.814 Spondylosis without myelopathy or radiculopathy, thoracic region
CPT/HCPCS: 71046